=== PATIENT | male | born 1945 | race Caucasian/White ===

== ENCOUNTER 2025-01-12 10:04 | Outpatient (REF) | payer OTHER, SELFPAY ==
--- NOTE | ~2025-01-12 | XR_ITS ---
EXAMINATION: XR LUMBAR SPINE 4 OR MORE VIEWS HISTORY: M48.062 - Spinal stenosis, lumbar region with neurogenic claudication COMPARISON: There are no prior studies for comparison. FINDINGS: AP, and neutral, flexion, and extension lateral views of the lumbar spine are submitted. Osseous mineralization is normal. There is mild leftward curvature. The vertebral bodies maintain normal height without evidence of fracture. There is grade I spondylolisthesis of L3 on L4 measuring approximately 5-6 mm in the neutral, flexion, extension positions. There is no abnormal motion with flexion or extension. There is severe degenerative disc disease with disc space narrowing and osteophyte formation. There is osteoarthritis of the facet joints. There is calcification of the abdominal aorta. XR/XR lumbar spine 4V min IMPRESSION: Mild leftward curvature. Grade I spondylolisthesis of L3 on L4 without significant change with flexion or extension. Diffuse severe degenerative disc disease. Electronically signed by: Wan Gardner MD 01/15/2025 09:16 AM BALJEET
--- OUTSIDE RECORDS SUMMARY | 2025-01-12 12:17 | XMS_ITS | Clinical Summary ---
Author Organization [facility] Address [address] [place] [address] Care Team Providers Care Adhesive Bandage Making Operator Name Role Phone Unavailable Primary Care Provider [...] mg total) by mouth nightly. 08/10/2023 Active [place]-3 Fatty Acids (FISH OIL PO) Take 1 [...]
--- OUTSIDE RECORDS SUMMARY | 2025-01-12 12:17 | XMS_ITS | Encounter Summary ---
Author Organization [facility] Address [address] [place] [address] Care Team Providers Care Washing Machine Assembler Name Role Phone Unavailable Primary Care Provider Unavailabl e Encounter Details Date Type Department Care Team (Late st Contact Info) Description 11/29/2023 Scanned Document [facility] [address] [facility] [address] [place] [phone] Marisela Bautista, MARJORIE [address] [place] [id number] Social History Tobacco Use Types Packs/Day Years [...]
--- OUTSIDE RECORDS SUMMARY | 2025-01-12 12:18 | XMS_ITS | Clinical Summary ---
Author Organization [facility] [employer] Address [address] [place] [address] Phone Care Team Providers Care State Highway Police Officer Name Role Phone Cristo Spring MD Primary Care Provider [phone] Allergies No known active allergies Medications hydroCHLOROthiaz [...] at bedtime. 01/17/20 20 Active fish,bora,flax oils-om3,6,9no1 ([place] 3-6-9) 1,200 mg capsule Take 1,200 mg [...] Encounters Date Type Department Care Team Description 01/12/2025 Telephone [facility] Cardiology [facility] [address] [place] [address] Ari Patricio MD Medical Records 11/24/2024 8:50 AM EST Office Visit [facility] Cardiology [facility] [address] [facility] [address] [place] [address] Ari Patricio MD Coronary artery disease, unspecified vessel or lesion type, unspecified whether angina present, unspecified whether [place] or transplanted heart (Primary Dx); Palpitations from [...] type, unspecified whether angina present, unspecified whether [place] or transplanted heart from Last 3 Months Results * ECG 12 lead (11/24/2024 8:51 AM EST) Ventricular Rate ECG 70 BPM GEMUSE Atrial Rate 70 BPM GEMUSE P-R Interval 162 ms GEMUSE QRS Duration 78 ms GEMUSE Q-T Interval 380 ms GEMUSE QTc 410 ms GEMUSE P Wave [place] 45 degrees GEMUSE R [place] 31 degrees GEMUSE T [place] -6 degrees GEMUSE ECG Interpretation Sinus rhythm with Premature supraventricular complexes Inferior infarct , age undetermined Abnormal ECG No previous ECGs available Confirmed by Jacques PATRICIO JAMES ([id number]) on 11/24/2024 1:19:31 PM GEMUSE 11/24/2024 8:51 AM EST 11/24/2024 1:19 PM EST us Ari Patricio MD ECG ORDERABLES Final Result GEMUSE from Last 3 Months Insurance [employer] Care Teams State Highway Police Officer Relationship Specialty Start Date End Date Cristo Spring MD [address] PCP - General Disaster Or Damage Control Specialist 03/08/18
--- OUTSIDE RECORDS SUMMARY | 2025-01-12 12:18 | XMS_ITS | Clinical Summary ---
Author Organization [facility] Address [address] [facility] [address] [place] [address] Phone Care Team Providers Care Human Performance Technologist Name Role Phone Cristo Spring MD Primary Care Provider [phone] Allergies No known active allergies Medications Aspirin [...] [facility] [address] [phone] Alonso Vance MD from Last 3 Months [...] [facility] [address] [phone] Alonso Vance MD [address] [phone] Health Maintenance Due Date Last Done Comments [...] None seen 0 - 5 /hpf [facility] RBC, Urine 0-2 0 - 2 /hpf [facility] Squamous Epithelial, Urine None seen 0 - 10 /hpf [facility] Casts None seen None seen /lpf [facility] Bacteria, Urine None seen None seen/Few [facility] 01/11/2025 10:5 0 AM EST 01/11/2025 Alonso Vance MD LAB MICROBIOLOGY - GENERAL OR DERABLES Final Result Performing Organization Address [facility]/ZIP Co de Phone Number [facility] [address] [place] [address] * Vitamin D 25 Hydroxy (01/11/2025 10:50 AM EST) Vitamin D, 25-OH, Total 30.8 30.0 - 100.0 ng/mL [facility] Comment: Vitamin D deficiency has been defined by the [place] of Medicine and an Endocrine Society practice guideline as a level of serum 25-OH vitamin D less than 20 ng/mL (1,2). The Endocrine Society went on to further define vitamin D insufficiency as a level between 21 and 29 ng/mL (2). 1. IOM ([place] of Medicine). 2010. Dietary reference ?? intakes for calcium and D. [place]: The ?? National [employer] Press. 2. Stef MF, Valdo [place], Michelle UNDERWOOD, et al. ?? Evaluation, treatment, and prevention of vitamin D ?? deficiency: an Endocrine Society clinical practice ?? guideline. JCEM. 2010; 96(7):1911-30. 01/11/2025 10:5 0 AM EST 01/11/2025 Alonso Vance MD LAB BLOOD ORDERABLES Final Re sult Performing Organization Address [facility]/ZIP Co de Phone Number [facility] [address] [place] [address] * (ABNORMAL) Urinalysis with microscopic (01/11/2025 10:50 AM EST) Specific [place], Urine 1.021 1.005 - 1.030 [facility] pH Urine 6.5 5.0 - 7.5 [facility] Color, Urine Yellow Yellow [facility] [phone] Appearance Urine Clear Clear [facility] [phone] WBC Esterase Urine Negative Negative [facility] Protein, Ur 1+(A) Negative/Tra ce [facility] Glucose, Ur Negative Negative [facility] [phone] Ketones, Urine Negative Negative [facility] Blood Urine Negative Negative [facility] [phone] Bilirubin Urine Negative Negative [facility] Urobilinogen Urine 1.0 0.2 - 1.0 mg/dL [facility] Nitrite, Urine Negative Negative [facility] Microscopic Examination See below: [facility] Comment:Microscopic was donnie cated and was performed. 01/11/2025 10:5 0 AM EST 01/11/2025 us Alonso Vance MD LAB URINE ORDERABLES Final Re sult [facility] [address] [place] [address] * CBC and Differential (01/11/2025 10:50 AM EST) WBC 9.7 3.4 - 10.8 x10E3/uL [facility] RBC 5.08 4.14 - 5.80 x10E6/uL [facility] Hemoglobin 14.0 13.0 - 17.7 g/dL [facility] Hematocrit 42.5 37.5 - 51.0 % [facility] MCV 84 79 - 97 fL [facility] MCH 27.6 26.6 - 33.0 pg [facility] MCHC 32.9 31.5 - 35.7 g/dL [facility] RDW 13.6 11.6 - 15.4 % [facility] Platelets 210 150 - 450 x10E3/uL [facility] Neutrophils Relative 65 Not Estab. % [facility] Lymphocytes Relative 24 Not Estab. % [facility] Monocytes 8 Not Estab. % [facility] Eosinophils Relative 2 Not Estab. % [facility] Basophils Relative 0 Not Estab. % [facility] Neutrophils Absolute 6.4 1.4 - 7.0 x10E3/uL [facility] Lymphocytes Absolute 2.3 0.7 - 3.1 x10E3/uL [facility] Monocytes Absolute 0.8 0.1 - 0.9 x10E3/uL [facility] Eosinophils Absolute 0.2 0.0 - 0.4 x10E3/uL [facility] Basophils Absolute 0.0 0.0 - 0.2 x10E3/uL [facility] Immature Granulocytes 1 Not Estab. % [facility] Immature Grans (Absolute) 0.1 0.0 - 0.1 x10E3/uL [facility] 01/11/2025 10:5 0 AM EST 01/11/2025 us Alonso Vance MD LAB BLOOD ORDERABLES Final Re sult [facility] [address] [place] [address] * Uric Acid (01/11/2025 10:50 AM EST) Uric Acid 7.9 3.8 - 8.4 mg/dL [facility] Comment:Therapeutic target f or gout patients: <6.0 01/11/2025 10:5 0 AM EST 01/11/2025 us Alonso Vance MD LAB BLOOD ORDERABLES Final Re sult [facility] [address] [place] [address] * Phosphorus (01/11/2025 10:50 AM EST) Phosphorus 2.8 2.8 - 4.1 mg/dL [facility] 01/11/2025 10:5 0 AM EST 01/11/2025 Alonso Vance MD LAB BLOOD ORDERABLES Final Re sult Performing Organization Address [facility] Co de Phone Number [facility] [address] [place] [address] * (ABNORMAL) PTH, Intact (01/11/2025 10:50 AM EST) PTH 69(H) 15 - 65 pg/mL [facility] 01/11/2025 10:5 0 AM EST 01/11/2025 Alonso Vance MD LAB BLOOD ORDERABLES Final Re sult Performing Organization Address [facility] Co de Phone Number [facility] [address] [place] [address] * Magnesium (01/11/2025 10:50 AM EST) Magnesium 1.8 1.6 - 2.3 mg/dL [facility] 01/11/2025 10:5 0 AM EST 01/11/2025 us Alonso Vance MD LAB BLOOD ORDERABLES Final Re sult [facility] [address] [place] [address] * (ABNORMAL) Comprehensive Metabolic Panel (01/11/2025 10:50 AM EST) Glucose 130(H) 70 - 99 mg/dL [facility] BUN 24 8 - 27 mg/dL [facility] Creatinine 1.30(H) 0.76 - 1.27 mg/dL [facility] eGFR CKD-EPI CR 2020 56(L) >59 mL/min/1.7 3 [facility] BUN/Creatinine Ratio 18 10 - 24 [facility] Sodium 146(H) 134 - 144 mmol/L [facility] Potassium 4.4 3.5 - 5.2 mmol/L [facility] Chloride 106 96 - 106 mmol/L [facility] Bicarbonate (CO2) 23 20 - 29 mmol/L [facility] Calcium 9.9 8.6 - 10.2 mg/dL [facility] Total Protein 6.8 6.0 - 8.5 g/dL [facility] Albumin 4.2 3.8 - 4.8 g/dL [facility] Globulin 2.6 1.5 - 4.5 g/dL [facility] Total Bilirubin 0.5 0.0 - 1.2 mg/dL [facility] Alkaline Phosphatase 96 44 - 121 IU/L [facility] AST (SGOT) 21 0 - 40 IU/L [facility] ALT (SGPT) 21 0 - 44 IU/L [facility] 01/11/2025 10:5 0 AM EST 01/11/2025 us Alonso Vance MD LAB BLOOD ORDERABLES Final Re sult [facility] [address] [place] [address] from Last 3 Months [facility][id number]) [facility]NA [facility] AD[facility] PPO ([id number]) Care Teams Human Performance Technologist Relationship Specialty Start Date End Date Cristo Spring MD [address] [place] [address] PCP - General Internal Medicine 09/14/22
--- OUTSIDE RECORDS SUMMARY | 2025-01-12 12:18 | XMS_ITS | Clinical Summary ---
Author Organization [facility] Address [address] [place] [address] Care Team Providers Care Switchboard Wirer Name Role Phone Cristo Spring MD Primary Care Provider [phone] Allergies No known active allergies Medications Medication [...] every night at bedtime. 5 07/20/2018 Active [place]-3 Fatty Acids (FISH OIL PO) Take 1 [...] Advance Directives For more information, please contact: [phone] Latest Code Status on File Code Status Date Activated Date Inactivated Comments Full Code 08/16/2018 11:55 AM 08/16/2018 6:37 PM This code status was ascertained in the following way: discussion with patient. Care Teams Switchboard Wirer Relationship Specialty Start Date End Date Cristo Spring MD [address] [address] PCP - General Hand Mounter 03/08/18
--- OUTSIDE RECORDS SUMMARY | 2025-01-12 12:18 | XMS_ITS | Encounter Summary ---
Author Organization [facility] Address [address] [place] [address] Care Team Providers Care Biometric Screener Name Role Phone Cristo Spring MD Primary Care Provider [phone] Reason for Visit * Reason Onset Date Comments Medical Records 01/12/2025 Encounter Details Date Type Department Care Team (Late st Contact Info) Description 01/12/2025 Telephone [facility] Cardiology [facility] [address] [place] [address] [address] [place] [address] Ari Patricio MD [address] [place] [address] [address] [place] [address] Medical Records Social History Tobacco Use Types Packs/Day Years [...] on file documented as of this encounter Progress Notes * Shanta Sandoval - 01/12/2025 11:21 AM EST Medical Records Request Caller: [facility] Calling from: [facility] Requesting provider's first & last name: Direct Phone Number or Ext: [phone] What records are being requested: Office visit notes with Dr. Patricio, for clearance How far back: 11/24/24 What is it for: Lumbar Decompression Needed by: ADRIEN documented in this encounter Plan of Treatment Not on file documented as of this encounter Visit Diagnoses Not on filedocumented in this encounter Care Teams Biometric Screener Relationship Specialty Start Date End Date Cristo Spring MD [address] PCP - General Exploration Geologist 03/08/18 documented as of this encounter
--- OUTSIDE RECORDS SUMMARY | 2025-01-12 12:18 | XMS_ITS | Encounter Summary ---
Author Organization [facility] Address [address] [address] Phone Care Team Providers Care Glass Melt Operator Name Role Phone Cristo Spring MD Primary Care Provider [phone] Encounter Details Date Type Department Care Team (Late Contact Info) Description 01/11/2025 Orders Only [facility] [address] [place] [phone] Alonso Vance MD [facility] [address] Social History Tobacco Use Types [...] Office Visit [facility] [address] [address] Alonso Vance MD [address] [address] Pending Results Name Type Priority [...] EST) PTH 69(H) 15 - 65 pg/mL [facility] 01/11/2025 10:5 0 AM EST 01/11/2025 us Alonso Vance MD LAB BLOOD ORDERABLES Final Re sult [facility] [address] [place] [address] * Magnesium (01/11/2025 10:50 AM EST) Magnesium 1.8 1.6 - 2.3 mg/dL [facility] 01/11/2025 10:5 0 AM EST 01/11/2025 Alonso Vance MD LAB BLOOD ORDERABLES Final Re sult Performing Organization Address City/[facility]/ZIP Co de Phone Number [facility] [place] [address] [place] [address] * Phosphorus (01/11/2025 10:50 AM EST) Phosphorus 2.8 2.8 - 4.1 mg/dL [facility] 01/11/2025 10:5 0 AM EST 01/11/2025 Alonso Vnace MD LAB BLOOD ORDERABLES Final Re sult Performing Organization Address [facility] Co de Phone Number [facility] [address] [place] [address] * Uric Acid (01/11/2025 10:50 AM EST) Uric Acid 7.9 3.8 - 8.4 mg/dL [facility] Comment:Therapeutic target f or gout patients: <6.0 01/11/2025 10:5 0 AM EST 01/11/2025 Alonso Vance MD LAB BLOOD ORDERABLES Final Re sult Performing Organization Address City/[facility]/ZIP Co de Phone Number [facility] [place] [address] [place] [address] * Vitamin D 25 Hydroxy (01/11/2025 10:50 AM EST) Vitamin D, 25-OH, Total 30.8 30.0 - 100.0 ng/mL [facility] [place] Comment: Vitamin D deficiency has been defined by the [place] of Medicine and an Endocrine Society practice guideline as a level of serum 25-OH vitamin D less than 20 ng/mL (1,2). The Endocrine Society went on to further define vitamin D insufficiency as a level between 21 and 29 ng/mL (2). 1. IOM ([place] of Medicine). 2010. Dietary reference ?? intakes for calcium and D. [place]: The ?? [employer]. 2. Stef MF, Valdo CAZARES, Michelle UNDERWOOD, et al. ?? Evaluation, treatment, and prevention of vitamin D ?? deficiency: an Endocrine Society clinical practice ?? guideline. JCEM. 2010; 96(7):1911-30. 01/11/2025 10:5 0 AM EST 01/11/2025 Alonso Vance MD LAB BLOOD ORDERABLES Final Re sult Performing Organization Address City/[facility]/ZIP Co de Phone Number [facility] [place] [address] [place] [address] * Microscopic Examination (01/11/2025 10:50 AM EST) WBC, Urine None seen 0 - 5 /hpf [facility] [place] RBC, Urine 0-2 0 - 2 /hpf [facility] [place] Squamous Epithelial, Urine None seen 0 - 10 /hpf [facility] [place] Casts None seen None seen /lpf [facility] [place] Bacteria, Urine None seen None seen/Few [facility] [place] 01/11/2025 10:5 0 AM EST 01/11/2025 Alonso Vance MD LAB MICROBIOLOGY - GENERAL OR DERABLES Final Result Performing Organization Address City/[facility]/ZIP Co de Phone Number [facility] [place] [address] [place] [address] * (ABNORMAL) Urinalysis with microscopic (01/11/2025 10:50 AM EST) Specific [place], Urine 1.021 1.005 - 1.030 [facility] [place] pH Urine 6.5 5.0 - 7.5 [facility] [place] Color, Urine Yellow Yellow [facility] [place] Appearance Urine Clear Clear [facility] [place] WBC Esterase Urine Negative Negative [facility] [place] Protein, Ur 1+(A) Negative/Tra ce [facility] [place] Glucose, Ur Negative Negative [facility] [place] Ketones, Urine Negative Negative [facility] [place] Blood Urine Negative Negative [facility] [place] Bilirubin Urine Negative Negative [facility] [place] Urobilinogen Urine 1.0 0.2 - 1.0 mg/dL [facility] [place] Nitrite, Urine Negative Negative [facility] [place] [phone] Microscopic Examination See below: [facility] [place] Comment:Microscopic was donnie cated and was performed. 01/11/2025 10:5 0 AM EST 01/11/2025 us Alonso Vance MD LAB URINE ORDERABLES Final Re sult [facility] [place] [address] [place] [address] * (ABNORMAL) Comprehensive Metabolic Panel (01/11/2025 10:50 AM EST) Pathologist [facility] Glucose 130(H) 70 - 99 mg/dL [facility] [place] BUN 24 8 - 27 mg/dL [facility] Creatinine 1.30(H) 0.76 - 1.27 mg/dL [facility] [place] eGFR CKD-EPI CR 2020 56(L) >59 mL/min/1.7 3 [facility] [place] BUN/Creatinine Ratio 18 10 - 24 [facility] [place] Sodium 146(H) 134 - 144 mmol/L [facility] Potassium 4.4 3.5 - 5.2 mmol/L [facility] Chloride 106 96 - 106 mmol/L [facility] [place] Bicarbonate (CO2) 23 20 - 29 mmol/L [facility] Calcium 9.9 8.6 - 10.2 mg/dL [facility] [place] Total Protein 6.8 6.0 - 8.5 g/dL [facility] [place] Albumin 4.2 3.8 - 4.8 g/dL [facility] [place] Globulin 2.6 1.5 - 4.5 g/dL [facility] Total Bilirubin 0.5 0.0 - 1.2 mg/dL [facility] [place] Alkaline Phosphatase 96 44 - 121 IU/L [facility] [place] AST (SGOT) 21 0 - 40 IU/L [facility] ALT (SGPT) 21 0 - 44 IU/L [facility] [place] 01/11/2025 10:5 0 AM EST 01/11/2025 us Alonso Vance MD LAB BLOOD ORDERABLES Final Re sult [facility] [place] [address] [place] [address] * CBC and Differential (01/11/2025 10:50 AM EST) WBC 9.7 3.4 - 10.8 x10E3/uL [facility] [place] RBC 5.08 4.14 - 5.80 x10E6/uL [facility] [place] Hemoglobin 14.0 13.0 - 17.7 g/dL [facility] [place] Hematocrit 42.5 37.5 - 51.0 % [facility] MCV 84 79 - 97 fL [facility] MCH 27.6 26.6 - 33.0 pg [facility] MCHC 32.9 31.5 - 35.7 g/dL [facility] RDW 13.6 11.6 - 15.4 % [facility] Platelets 210 150 - 450 x10E3/uL [facility] Neutrophils Relative 65 Not Estab. % [facility] Lymphocytes Relative 24 Not Estab. % [facility] Monocytes 8 Not Estab. % [facility] Eosinophils Relative 2 Not Estab. % [facility] Basophils Relative 0 Not Estab. % [facility] Neutrophils Absolute 6.4 1.4 - 7.0 x10E3/uL [facility] [place] Lymphocytes Absolute 2.3 0.7 - 3.1 x10E3/uL [facility] [place] Monocytes Absolute 0.8 0.1 - 0.9 x10E3/uL [facility] [place] Eosinophils Absolute 0.2 0.0 - 0.4 x10E3/uL [facility] [place] Basophils Absolute 0.0 0.0 - 0.2 x10E3/uL [facility] [place] Immature Granulocytes 1 Not Estab. % [facility] Immature Grans (Absolute) 0.1 0.0 - 0.1 x10E3/uL [facility] 01/11/2025 10:5 0 AM EST 01/11/2025 us Alonso Vance MD LAB BLOOD ORDERABLES Final Re sult [facility] [address] [place] [phone] documented in this encounter Visit Diagnoses Not on filedocumented in this encounter Care Teams Glass Melt Operator Relationship Specialty Start Date End Date Cristo Spring MD [address] [place] [address] PCP - General Internal Medicine 09/14/22 documented as of this encounter
== END 2025-01-12 10:05 | disposition home or self-care (01) ==
LOC: HO.HOSX 10:04
PROVIDERS: PCP Internal Medicine; Visit Provider Neurological Surgery
DX: M48.062 Spinal stenosis, lumbar region with neurogenic claudication (principal)
CPT/HCPCS: 72110

== ENCOUNTER 2025-01-12 10:04 | Outpatient (AMB) | payer OTHER, SELFPAY ==
--- NOTE | 2025-01-12 10:08 | HO.SPINEOV ---
Vital Signs 01/12/25 10:14 Height 5 ft 7 in Weight 230 lb BMI 36.0 Intake Visit Reasons: LBP Intake Note: Mr. Vela is here today c/o low back pain that radiates down to the legs. Community Development Specialist Required: No Allergies No Known Allergies Allergy (Verified 01/12/25 10:15) Physical Exam Vital Signs: BMI result Body Mass Index 36.0 Assessment & Plan Assessment & Plan (1) Lumbar stenosis with neurogenic claudication: Code(s): M48.062 - Spinal stenosis, lumbar region with neurogenic claudication Category: Medical Plan: Dear Colleague on 01/12/2025, I saw for 2nd opinion your patient Leroy Vela with a chief complaint of bilateral leg discomfort and weakness HPI: this 79-year-old male developed difficulty walking and standing approximately 2 years ago. The symptoms have been progressive. Specifically, 2 years ago he was still able to walk [place] with intermittent sitting but last year he could not go as he can hardly stand or walk due to bilateral leg discomfort, Weakness and right foot numbness. He was seen at [facility] by Dr. Morocho recommended a 5 hour lumbar fusionsurgery. he came to see me for 2nd opinion to see if there is a minimally invasive solution. The following conservative treatment options were tried without success antiinflammatories, tylenol, Physical therapy, cortisone shots. PMH: [ Hypertension, mi 20 and 30 years ago. He has annual follow-ups with the solar pool heating installer. The last follow-up was 2 weeks ago. He denies shortness of breath or chest pain. Medications: Atorvastatin, amlodipine, lisinopril, metoprolol, zolpidem, aspirin Allergies: NKDA Social history: . Nonsmoker Physical Exam: pleasant male height 5'7 weight 230 lb. He can only stand or walk for short period in the office before he has to sit down due to bilateral leg discomfort and right foot numbness. After period of sitting, his neurological exam is intact for motor sensation reflexes. Radiological Studies: MRI done at [facility] on 09/08/2024 shows severe central spinal stenosis L3-4 and severe lateral recess stenosis L4-L5 with bilateral L5 nerve root compression. In addition there is multilevel foraminal stenosis. There is also a disc herniation at L2-3 on the right side compressing the right L3 nerve root. Flexion-extension x-ray show a mild L3-4 spondylolisthesis without instability. Impression/Plan: This 79-year-old male is suffering from classic neurogenic claudication due to severe spinal stenosis L3-4 and L4-5. I do not think that the L2-3 level symptomatic. I offered him an L3-4 and L4-5 lumbar decompression. He is aware that there is a minor risk that the spondylolisthesis will turn into instability. For now, I do not recommend a fusion surgery. He is scheduled for 02/06/2025. He is going to get preoperative clearance from his primary care physician. As mentioned before, he was recently seen by solar pool heating installer and his cardiology history has been stable for years. Thank you for allowing me to participate in your patients care. total time spent was 50 minutes in counseling ,coordination of plan, personal review of imaging, surgical decision making and subsequent plan Mason Young MD, PhD Spine Fellowship Trained Neurosurgeon Director, [facility] Orders: Orders XR lumbar spine 4V min Today M48.062 - Spinal stenosis, lumbar region with neurogenic claudication Coding Level of Care Code New Pt Level 4 (24471) Diagnoses Lumbar stenosis with neurogenic claudication M48.062
[2025-01-12 10:14] VITALS: BMI 36.0
--- OUTSIDE RECORDS SUMMARY | 2025-01-12 11:10 | XMS_ITS | Clinical Summary ---
Author Organization [facility] Address [address] [place] [address] Phone Care Team Providers Care Longwall Foreman Name Role Phone Cristo Spring MD Primary Care Provider [phone] Allergies No known active allergies Medications hydroCHLOROthiaz madisyn (HYDRODIURIL) 25 mg tablet Take 1 tablet (25 mg total) by mouth 1 (one) time each day. 90 tablet 1 09/24/20 24 Active lisinopril (PRINIVIL,ZESTRI L) 40 mg tablet Take 1 tablet (40 mg total) by mouth 1 (one) time each day. 90 tablet 1 09/24/20 24 Active aspirin (ASPIR-81 ORAL) Take 81 mg by mouth daily. 08/12/20 14 Active atorvastatin (LIPITOR) 80 mg tablet TAKE 1 TABLET BY MOUTH EVERY DAY 08/24/20 24 Active colchicine (MITIGARE) 0.6 mg capsule capsule Take by mouth as needed. Active esomeprazole (NexIUM) 40 mg packet Take 40 mg by mouth every morning (before breakfast). Active metoprolol succinate (TOPROL-XL) 25 mg 24 hr tablet Take 1 Tablet by mouth daily. Active zolpidem (AMBIEN) 10 mg tablet Take 1 Tablet by mouth at bedtime. 01/17/20 20 Active fish,bora,flax oils-om3,6,9no1 ([place] 3-6-9) 1,200 mg capsule Take 1,200 mg by mouth daily. 03/18/20 12 Active amLODIPine (NORVASC) 5 mg tabletIndication s:Essential (primary) hypertension TAKE 1 TABLET BY MOUTH EVERY DAY 90 tablet 3 01/05/20 25 Active amLODIPine (NORVASC) 5 mg tablet Take 1 Tablet by mouth daily. 08/21/20 24 025 Discontinued Active Problems Problem Noted Date Diagnosed Date Palpitations 09/04/2022 Overview (10/06/2024): Last Assessment & Plan: Patient complains of an arrhythmia of some sort uncertain as to what it is his watch does not really pick it up undistorted information so we will schedule him for a loop recorder to see if he can determine what his arrhythmias Assessment & Plan (11/24/2024 1:21 PM EST): Patient still with occasional peers of palpitations history of PACs and PVCs in the past on loop recorder no complex ectopy Coronary artery disease 01/29/2021 Overview (10/06/2024): Last Assessment & Plan: Patient with remote history of episodic coronary disease with mild residual disease. No anginal symptoms at this time. There are statin medication in place though his LDL cholesterol is climbed little bit we have encouraged him to watch his diet no changes in medical medical therapy at this time. Patient is been instructed to contact us if he develops any exertional symptoms of progressive dyspnea or chest discomfort or if the palpitations become more of an issue in the future. Otherwise no changes to therapy follow-up in 1 year Assessment & Plan (11/24/2024 1:21 PM EST): Remote history of coronary disease with mild residual atheroma. Risk factor modifications in place. Patient advised to seek emergency medical attention by calling 911 if they were to develop severe dyspnea, chest pain that did not resolve with rest or nitroglycerin, or if they were to faint Orders: ECG 12 lead Hyperlipidemia 01/29/2021 Hypertension 01/29/2021 Overview (10/06/2024): Last Assessment & Plan: Patient's blood pressure has been an issue in the past is fairly well controlled at this point. His primary care physician is been adjusting the dose of amlodipine downward will need to carefully monitor this. We try to correlate his home blood pressure cuff after I twice my numbers are both lower than the numbers he is getting with his cough he may need to replace the device due to inaccuracy otherwise no change in therapy at this time Encounters Date Type Department Care Team Description 11/24/2024 8:50 AM EST Office Visit [facility] [address] [facility] [address] [place] [address] Liza Patricio MD Coronary artery disease, unspecified vessel or lesion type, unspecified whether angina present, unspecified whether [place] or transplanted heart (Primary Dx); Palpitations from Last 3 Months Social History Tobacco Use Types Packs/Day Years Used Date Smoking Tobacco: Former Cigarettes Q uit: 11/15/1972 Smokeless Tobacco: Never Alcohol Use Standard Drinks/Week Comments No 0 (1 standard drink = 0.6 oz pur e alcohol) Sex and Gender Information Value Date Recorded Sex Assigned at Not on file Legal Sex Male 2:20 AM EST Gender Identity Not on file Sexual Orientation Not on file Obstetrics History Last Filed Vital Signs Vital Sign Reading Time Taken Comments Blood Pressure 122/64 11/24/2024 9:21 AM EST Pulse 79 11/24/2024 8:44 AM EST Temperature - - Respiratory Rate - - Oxygen Saturation 93% 11/24/2024 8:44 AM EST Inhaled Oxygen Concentration - - Weight 103 kg (228 lb) 11/24/2024 8:44 AM EST Height 170.2 cm (5' 7 ) 11/24/2024 8:44 AM EST Body Mass Index 35.71 11/24/2024 8:44 AM EST Plan of Treatment Health Maintenance Due Date Last Done Comments Diabetes: Annual GFR (Glomerular Filtration Rate) 1945 Diabetes: Annual Foot Exam 1955 Diabetes: Annual Retina Eye Exam 1955 Pneumococcal Vaccine: 50+ Years (2 of 2 - PCV) 12/22/2014 12/22/2013 RSV Immunization Patients 60+ Years Old (1 - 1-dose 75+ series) 2020 Cholesterol Screening (Lipid Panel) 10/18/2022 Depression Screening 10/18/2022 Falls Risk Assessment 10/18/2022 Hepatitis C Screening 10/18/2022 Medicare Annual Wellness Visit 10/18/2022 Social Influencers of Health Screening 10/18/2022 Hypertension/CHF/CAD Annual BMP Blood Test 10/25/2022 COVID-19 Vaccine ( season) 2024 08/18/2023, 09/01/2022, 02/26/2022, Additional history exists Diabetes: Annual Urine Albumin-Creatinine Ratio (uACR) 11/24/2024 Diabetes: Blood Sugar Control Test (HGBA1C) 11/24/2024 DTaP,Tdap,and Td Vaccines (2 - Td or Tdap) 09/27/2034 09/27/2024 Zoster Vaccines Completed 11/27/2019, 09/04/2019 Influenza Vaccine Completed 09/27/2024, , 07/26/2020, Additional history exists HIB Vaccines Aged Out No longer eligi ble based on patient's age to complete this topic HPV Vaccines Aged Out No longer eligi ble based on patient's age to complete this topic Hepatitis A Vaccines Aged Out No long er eligible based on patient's age to complete this topic Hepatitis B Vaccines Aged Out No long er eligible based on patient's age to complete this topic IPV Vaccines Aged Out No longer eligi ble based on patient's age to complete this topic MMR Vaccines Aged Out No longer eligi ble based on patient's age to complete this topic Meningococcal ACWY Vaccine Aged Out N o longer eligible based on patient's age to complete this topic Meningococcal B Vacine Aged Out No lo nger eligible based on patient's age to complete this topic RSV Immunization Patients Under 20 months Aged Out No longer eligible based on patient's age to complete this topic Varicella Vaccines Aged Out No longer eligible based on patient's age to complete this topic Procedures Procedure Name Priority Date/Time Associated Diagnosis Comments ECG 12-LEAD Routine 11/24/2024 8:51 AM EST Coronary artery disease, unspecified vessel or lesion type, unspecified whether angina present, unspecified whether k[place] or transplanted heart from Last 3 Months Results * ECG 12 lead (11/24/2024 8:51 AM EST) Ventricular Rate ECG 70 BPM GEMUSE Atrial Rate 70 BPM GEMUSE P-R Interval 162 ms GEMUSE QRS Duration 78 ms GEMUSE Q-T Interval 380 ms GEMUSE QTc 410 ms GEMUSE P Wave [place] 45 degrees GEMUSE R [place] 31 degrees GEMUSE T [place] -6 degrees GEMUSE ECG Interpretation Sinus rhythm with Premature supraventricular complexes Inferior infarct , age undetermined Abnormal ECG No previous ECGs available Confirmed by Jacques PATRICIO, LIZA ([id number]) on 11/24/2024 1:19:31 PM GEMUSE 11/24/2024 8:51 AM EST 11/24/2024 1:19 PM EST us Liza Patricio MD ECG ORDERABLES Final Result GEMUSE from Last 3 Months Insurance [employer] MEDICARE ADVANTAGE Care Teams Longwall Foreman Relationship Specialty Start Date End Date Cristo Spring MD [address] PCP - General Nurse Executive 03/08/18
--- OUTSIDE RECORDS SUMMARY | 2025-01-12 11:10 | XMS_ITS | Patient Health Record ---
Author Organization [facility] Address [address] [place] [address] Care Team Providers Care Snow Ranger Name Role Phone Budindira Cristo Primary Care Provider Unavailabl e Allergies No Known Allergies Reason For Referral No Information Medications Medication SIG (Take, Route, Frequency, Duration) Notes Start Date End Date Status Colchicine 0.6 MG 1 tablet Orally Active Esomeprazole Magnesium 40 MG 1 capsule O rally Once a day Active hydroCHLOROthiazide 25 MG 1 tablet in th e morning Orally Once a day Active Lisinopril 40 MG 1 tablet Orally Once a day Active Metoprolol Succinate ER 100 MG 1 tablet Orally Once a day Active Paxlovid (150/100) 10 x 150 MG & 10 x 100MG as directed Orally Not-[facility] traMADol HCl 50 MG 1 tablet as needed Orally Once a day Active Zolpidem Tartrate 5 MG 1 tablet at bedti ar as needed Orally Once a day Active amLODIPine Besylate 2.5 MG 1 tablet Oral ly Once a day Active Aspirin 81 81 MG 1 tablet Orally Once a day Active Atorvastatin Calcium 80 MG 1 tablet Oral ly Once a day Active Cialis 20 MG 1 tablet as needed Orally Once a day Active Plan Of Treatment No Information Insurance Providers Payer Name Payer Address Payer Phone Subscriber Number Group Number Insured Name Patient Relationship to Insured Coverage Start Date Coverage End Date [employer] Medicare [address] [place] [phone] [id number] Leroy Badillo i Self - patient is the insured Medical (General) History Medical History History ICD Code Atherosclerosis of Abdominal Aorta Benign Hypertension w/ CKD Stage 3 CAD S/P Percutaneous Coronary Angioplast y Cervicalgia Esophageal Reflux Hyperglycemia Hyperlipidemia Hyperparathyroidism Hypertension Impotence Insomnia Morbid Obesity Renal Cysts, Bilateral Lumbar central canal stenosi s L3-L4, L4, L5 with large disc herniation L2-L3 right + COVID 2021 and 2022 COVID vaccinated X 3 (enGreet) Surgical History Surgery Date(Month/Year) right ankle ORIF Hospitalization History Reason Date(Month/Year) right ankle surgery
--- OUTSIDE RECORDS SUMMARY | 2025-01-12 11:10 | XMS_ITS | Clinical Summary ---
Author Organization [facility] Address [address] [place] [address] Care Team Providers Care Topographical Drafter Name Role Phone Unavailable Primary Care Provider Unavailabl e Allergies No known active allergies Medications Medication Sig Dispensed Refills Start Date End Date Status amLODIPine (NORVASC) 2.5 MG tablet Take 1 tablet (2.5 mg total) by mouth every morning. Active Aspirin Low Dose 81 MG EC tablet Take 1 tablet (81 mg total) by mouth every morning. 06/26/2023 Active atorvastatin (LIPITOR) 80 MG tablet Take 1 tablet (80 mg total) by mouth every morning. 06/08/2023 Active COLCHICINE PO Take 0.6 mg by mouth daily as needed. 05/12/2023 Active esomeprazole (NexIUM) 40 MG capsule Take 1 capsule (40 mg total) by mouth daily as needed. 06/04/2023 Active hydroCHLOROthiazid e (HYDRODIURIL) 25 MG tablet Take 1 tablet (25 mg total) by mouth every morning. 06/08/2023 Active lisinopril (PRINIVIL,ZeSTRIL) 40 MG tablet Take 1 tablet (40 mg total) by mouth every morning. 06/26/2023 Active zolpidem (AMBIEN) 5 MG tablet Take 1 tablet (5 mg total) by mouth nightly. 08/10/2023 Active [place]-3 Fatty Acids (FISH OIL PO) Take 1 tablet by mouth daily as needed. Active polyethylene glycol-electrolyte s (NuLYTELY, TRILYTE) 420 g solutionIndication s:History of colon polyps Take as directed for Colonoscopy/GI Procedure. See administration instructions. 4000 mL 08/24/2023 Active metoPROLOL SUCCINATE (TOPROL-XL) 25 MG 24 hr tablet Take 1 tablet (25 mg total) by mouth every morning. Active Active Problems No known active problems Social History Tobacco Use Types Packs/Day Years Used Date Smoking Tobacco: Former Cigarettes Q uit: 1973 Smokeless Tobacco: Never Tobacco Cessation:Counseling Given: Not Answered Alcohol Use Standard Drinks/Week Comments Not Currently 0 (1 standard drink = 0.6 oz pur e alcohol) AUDIT-C Answer Date Recorded Q1: How often do you have a drink containing alcohol? Never 10/25/2023 Q2: How many drinks containi ng alcohol do you have on a typical day when you are drinking? Patient does not drink Q3: How often do you have si x or more drinks on one occasion? Never 10/25/2023 Sex and Gender Information Value Date Recorded Sex Assigned at Male 07/20/2023 11:32 AM EDT Gender Identity Male 07/20/2023 11:32 AM EDT Sexual Orientation Heterosexual (straight) 07/20 11:32 AM EDT Last Filed Vital Signs Vital Sign Reading Time Taken Comments Blood Pressure 126/61 10/26/2023 4:10 PM EST Pulse 64 10/26/2023 4:10 PM EST Temperature 36.6 ??C (97.8 ??F) 10/26/2023 1:58 PM ES T Respiratory Rate 20 10/26/2023 1:58 PM EST Oxygen Saturation 92% 10/26/2023 4:10 PM EST Inhaled Oxygen Concentration - - Weight 106 kg (234 lb) 10/25/2023 9:27 AM EST Height 170.2 cm (5' 7 ) 10/25/2023 9:27 AM EST Body Mass Index 36.65 10/25/2023 9:27 AM EST Plan of Treatment Health Maintenance Due Date Last Done Comments Hepatitis C Virus Screening 1945 DTaP/Tdap/Td Vaccines (1 - Tdap) 1964 Pneumococcal Vaccines 50+ (1 of 1 - PCV) 1995 Zoster (Shingles) Vaccine (1 of 2) 1995 RSV Vaccine 60 years and old er and Patients (1 - 1-dose 75+ series) 2020 Influenza Vaccine 06/15/2024 COVID-19 Vaccine ( - 2023-2 5 season) 2024 Hepatitis B Vaccines Aged Out No long er eligible based on patient's age to complete this topic
--- OUTSIDE RECORDS SUMMARY | 2025-01-12 11:10 | XMS_ITS | Clinical Summary ---
Author Organization [facility] Address [address] [place] [address] Care Team Providers Care Banker Mason Name Role Phone Cristo Spring MD Primary Care Provider [phone] Allergies No known active allergies Medications Medication Sig Dispensed Refills Start Date End Date Status aspirin 81 MG tablet TAKE 1 TABLET EVERY DAY 2 07/06/2018 Active atorvastatin (LIPITOR) tablet 80 mg Take 80 mg by mouth daily. 2 06/06/2018 Active colchicine 0.6 MG tablet TAKE 1 TABLET (0.6 MG) BY ORAL ROUTE 2 TIMES PER DAY NEEDED 10 07/20/2018 Active hydroCHLOROthiazide (HYDRODIURIL) tablet 25 mg Take 25 mg by mouth daily. 3 06/04/2018 Active lisinopril (PRINIVIL,ZESTRIL) tablet 40 mg Take 40 mg by mouth daily. 2 05/18/2018 Active metoprolol succinate (TOPROL-XL) 24 hr tablet 25 mg TAKE 1 TABLET BY ORAL ROUTE EVERY DAY 1 08/09/2018 Active mupirocin (BACTROBAN) 2 % ointment 2 (two) times a day. 2 05/11/2018 Active zolpidem (AMBIEN) 10 MG tablet 5 mg every night at bedtime. 5 07/20/2018 Active [place]-3 Fatty Acids (FISH OIL PO) Take 1 capsule by mouth daily. 0 Active Multiple Vitamin (ONE-A-DAY 55 PLUS PO) Take 1 tablet by mouth daily. 0 Active Active Problems No known active problems Family History Medical History Relation Name Comments Heart attack Father Heart disease Father Relation Name Status Comments Father Social History Tobacco Use Types Packs/Day Years Used Date Smoking Tobacco: Former Smokeless Tobacco: Never Alcohol Use Standard Drinks/Week Comments No 0 (1 standard drink = 0.6 oz pur e alcohol) Sex and Gender Information Value Date Recorded Sex Assigned at Not on file Gender Identity Not on file Sexual Orientation Not on file Last Filed Vital Signs Vital Sign Reading Time Taken Comments Blood Pressure 136/83 08/16/2018 12:19 PM EDT Pulse 82 08/16/2018 12:19 PM EDT Temperature 36.4 ??C (97.5 ??F) 08/16/2018 11:59 AM E DT Respiratory Rate 18 08/16/2018 12:19 PM EDT Oxygen Saturation 96% 08/16/2018 12:19 PM EDT Inhaled Oxygen Concentration - - Weight 106.1 kg (234 lb) 08/16/2018 9:36 AM EDT Height 170.2 cm (5' 7 ) 08/16/2018 9:36 AM EDT Body Mass Index 36.65 08/16/2018 9:36 AM EDT Plan of Treatment Health Maintenance Due Date Last Done Comments Hepatitis C Screening 1945 COVID-19 Vaccine (#1) 04/20/1946 Depression Screening 1957 Preventative Health Evaluation 1963 DTap / Tdap / Td (1 - Tdap) 1964 Shingrix-Zoster Vaccine (1 of 2) 1995 Fall Risk Assessment 2010 Pneumococcal Vaccine (1 of 1 - PCV) 2010 RSV Adult > 60+ Yrs or Pregn ant (1 - 1-dose 75+ series) 2020 Influenza Vaccine (#1) 2024 Hepatitis B Vaccines Aged Out No long er eligible based on patient's age to complete this topic RSV Ped < 20 months Aged Out No longe r eligible based on patient's age to complete this topic Advance Directives For more information, please contact: [phone] Latest Code Status on File Code Status Date Activated Date Inactivated Comments Full Code 08/16/2018 11:55 AM 08/16/2018 6:37 PM This code status was ascertained in the following way: discussion with patient. Care Teams Banker Mason Relationship Specialty Start Date End Date Cristo Spring MD [address] [address] PCP - General Sander And Polisher 03/08/18
--- OUTSIDE RECORDS SUMMARY | 2025-01-12 11:10 | XMS_ITS | Encounter Summary ---
Author Organization [facility] Address [address] [place] [address] Care Team Providers Care Audience Coordinator Name Role Phone Unavailable Primary Care Provider Unavailabl e Encounter Details Date Type Department Care Team (Late st Contact Info) Description 11/29/2023 Scanned Document [facility] [address] [place] [id number] Marisela Bautista, MARJORIE [address] [place] [id number] Social History Tobacco Use Types Packs/Day Years Used Date Smoking Tobacco: Former Cigarettes Q uit: 1973 Smokeless Tobacco: Never Alcohol Use Standard Drinks/Week Comments Not Currently [...] Orientation Heterosexual (straight) 07/20 11:32 AM EDT documented as of this encounter Plan of Treatment Not on file documented as of this encounter Visit Diagnoses Not on filedocumented in this encounter
--- OUTSIDE RECORDS SUMMARY | 2025-01-12 11:10 | XMS_ITS ---
Author Name [facility] Organization Unknown History of Medication Use Medication Directions Dispensed Refills Start Date End Date Stat us metoPROLOL TARTRATE (LOPRESSOR) 25 MG tablet Take 25 mg by mouth. 05/12/2023 acti ve polyethylene glycol-electrolytes (NuLYTELY, TRILYTE) 420 g solution Take as directed for Colonoscopy/GI Procedure. See administration instructions. 08/24/2023 active esomeprazole (NexIUM) 40 MG capsule Take 40 mg by mouth daily. 06/04/2023 active zolpidem (AMBIEN) 5 MG tablet Take 1 tablet (5 mg total) by mouth nightly. 08/10/2023 active zolpidem (AMBIEN) 5 MG tablet Take 10 mg by mouth nightly. 08/10/2023 active
--- OUTSIDE RECORDS SUMMARY | 2025-01-12 11:11 | XMS_ITS ---
Author Organization [facility] Address [address] [facility] [address] [place] [address] Care Team Providers Care Bpo Specialist Name Role Phone Cristo Spring Primary Care Provider TAMIKO Pena Unavailable [phone] Allergies No Known Allergies REASON FOR VISIT bilateral foot pain Medications Medication SIG (Take, Route, Frequency, Duration) Notes Start Date End Date Status Lisinopril 40 MG 1 tablet Orally Once a day Active Metoprolol Succinate ER 100 MG 1 tablet Orally Once a day Active Paxlovid (150/100) 10 x 150 MG & 10 x 100MG as directed Orally [facility]- shell traMADol HCl 50 MG 1 tablet as needed Orally Once a day Active Zolpidem Tartrate 5 MG 1 tablet at bedti mo as needed Orally Once a day Active Colchicine 0.6 MG 1 tablet Orally Active amLODIPine Besylate 2.5 MG 1 tablet Oral ly Once a day Active Aspirin 81 81 MG 1 tablet Orally Once a day Active Atorvastatin Calcium 80 MG 1 tablet Oral ly Once a day Active Cialis 20 MG 1 tablet as needed Orally Once a day Active Esomeprazole Magnesium 40 MG 1 capsule O rally Once a day Active hydroCHLOROthiazide 25 MG 1 tablet in morning Orally Once a day Active Vital Signs Temperature 97.5 degrees Fahrenheit 08/17/20 Heart Rate 88 /min 08/17/2023 Respiratory Rate 20 /min 08/17/2023 Height 5ft 7in in 08/17/2023 Weight 236.5 lbs 08/17/2023 BMI 37.04 kg/m2 08/17/2023 Encounters Encounter Location Date Provider Diagnosis [facility] [address] [facility] [address] [place] [address] 08/17/2023 TAMIKO PICHARDO Right foot pain M79. 671 ; Left foot pain M79.672 ; Spinal stenosis of lumbar region with neurogenic claudication M48.062 and Lumbar back pain with radiculopathy affecting lower extremity M54.16 Assessments Encounter Date Diagnosis (ICD Code) Assessment Notes Treatment Notes Treatment Clinical Notes Section Notes 08/17/2023 Right foot pain (ICD-10 - M79.671) 08/17/2023 Left foot pain (ICD-10 - M79.672) 08/17/2023 Spinal stenosis of lumbar region with neurogenic claudication (ICD-10 - M48.062) Patient examined and evaluated. Past medical history reviewed. He has neurogenic pain to both lower extremities that has been ongoing for a year now. I did take weightbearing radiographs of the right and left foot today. No abnormal bony pathology to explain his symptoms. I discussed his spinal stenosis and how this affects the sensory and motor function of his lower extremities. Unfortunately there are no treatments that I can offer that will improve this for him. He needs to continue follow up with pain management and neurosurgery. He expressed understanding of this. He can follow back with me as needed. 08/17/2023 Lumbar back pain with radiculopathy affecting lower extremity (ICD-10 - M54.16) Plan Of Treatment Treatment Notes Assessment Notes Spinal stenosis of lumbar re gion with neurogenic claudication Patient examined and evaluated. Past medical history reviewed. He has neurogenic pain to both lower extremities that has been ongoing for a year now. I did take weightbearing radiographs of the right and left foot today. No abnormal bony pathology to explain his symptoms. I discussed his spinal stenosis and how this affects the sensory and motor function of his lower extremities. Unfortunately there are no treatments that I can offer that will improve this for him. He needs to continue follow up with pain management and neurosurgery. He expressed understanding of this. He can follow back with me as needed. Progress Notes * Leroy ANAYA PDOB:04/1945 (77 yo M)Acc No.[id number]:08/17/2023 Progress Notes Patient:?Leroy Anaya P Provider:?Tamiko Marc DPM :1945???Age:77 Y???Sex:Male Rishabh e:08/17/2023 Address:[place], [id number] Pcp:Cristo Spring Subjective: * Chief Complaints: * ???Bilateral foot pain * HPI: ???Foot & Ankle:? Mr. Anaya is a pleasant 77 year old male who presents for a consultation. He has been having issues with both his feet for about a year now. He states the right foot becomes very numb and at times he feels like he can't use it. He also gets tingling and prickly sensations in the right foot. This can occur at the ball of the foot and at the top of the foot. He has noticed that this seems to be starting on the left to a lesser extent. He finds that he has a hard time with any prolonged walking due to pain in his lower extremities. He denies any issues with tripping or falling. He did have an evaluation with a neurosurgeon back in April of this year and was found the have severe lumbar stenosis with a large right disc herniation at L2-L3. Surgery was discussed with the patient, but due to the extensiveness it was agreed that he try conservative measures first. Patient denies any lower back pain. All his symptoms are in the lower legs and feet. He did meet with pain management last month and he has been scheduled for epidural injections 08/26. In the meantime he has tried tramadol and tylenol with minimal relief. * ROS:?General/Constitutional:?Denies?Chills.?Denies?Fatigue.?Denies?Fever.?Denies?Headache.?Allergy/Immunology:?Denies?Hives.?Denies?Itching.?Denies?Rash.?Endocrine:?Denies?Excessive sweating.?Denies?Excessive thirst.?Denies?Frequent urination.?Respiratory:?Denies?Cough.?Denies?Shortness of breath,?denies.?Denies?Wheezing.?Cardiovascular:?Denies?Chest pain.?Denies?Claudication.?Denies?Cyanosis.?Gastrointestinal:?Denies?Abdominal pain.?Denies?Constipation.?Denies?Diarrhea.?Hematology:?Denies?Bleeding problems,?denies.?Denies?Easy bruising,?denies.?Denies?Swollen glands.?Musculoskeletal:?Patient complaining of?right and left foot pain.?Admits?Arthritis/Arthralgia.?Admits?Back problems.?Admits?Leg cramps.?Denies?Limping gait.?Peripheral Vascular:?Denies?Blanching of skin.?Blood clots in legs?Denies.?Denies?Cold extremities.?Skin:?Denies?Masses.?Denies?Nail changes.?Denies?Skin lesion(s).?Neurologic:?Denies?Paralysis.?Admits?Tingling/Numbness,?both feet.?Denies?Tremor.?Psychiatric:?Denies?Auditory/visual hallucinations.?Denies?Delusions.?Denies?Suicidal thoughts.? * Medical History:? * Surgical History:?right ankl e ORIF * Hospitalization/Major Diagno stic Procedure:?right ankle surgery * Family History:?Father: TB.? * Social History:?Tobacco: former smoker Alcohol: no Lives with . * Medications:?TakingZolpidem Tartrate 5 MG Tablet 1 tablet at bedtime as needed Orally Once a day traMADol HCl 50 MG Tablet 1 tablet as needed Orally Once a day Metoprolol Succinate ER 100 MG Tablet Extended Release 24 Hour 1 tablet Orally Once a day Lisinopril 40 MG Tablet 1 tablet Orally Once a day hydroCHLOROthiazide 25 MG Tablet 1 tablet in the morning Orally Once a day Esomeprazole Magnesium 40 MG Capsule Delayed Release 1 capsule Orally Once a day Colchicine 0.6 MG Tablet 1 tablet Orally Cialis 20 MG Tablet 1 tablet as needed Orally Once a day Atorvastatin Calcium 80 MG Tablet 1 tablet Orally Once a day Aspirin 81 81 MG Tablet Delayed Release 1 tablet Orally Once a day amLODIPine Besylate 2.5 MG Tablet 1 tablet Orally Once a day Taking Zolpidem Tartrate 5 MG Tablet 1 tablet at bedtime as needed Orally Once a day Taking traMADol HCl 50 MG Tablet 1 tablet as needed Orally Once a day Taking Metoprolol Succinate ER 100 MG Tablet Extended Release 24 Hour 1 tablet Orally Once a day Taking Lisinopril 40 MG Tablet 1 tablet Orally Once a day Taking hydroCHLOROthiazide 25 MG Tablet 1 tablet in the morning Orally Once a day Taking Esomeprazole Magnesium 40 MG Capsule Delayed Release 1 capsule Orally Once a day Taking Colchicine 0.6 MG Tablet 1 tablet Orally Taking Cialis 20 MG Tablet 1 tablet as needed Orally Once a day Taking Atorvastatin Calcium 80 MG Tablet 1 tablet Orally Once a day Taking Aspirin 81 81 MG Tablet Delayed Release 1 tablet Orally Once a day Taking amLODIPine Besylate 2.5 MG Tablet 1 tablet Orally Once a day Not-TakingPaxlovid (150/100) 10 x 150 MG & 10 x 100MG Tablet Therapy Pack as directed Orally Medication List reviewed and reconciled with the patientNot-Taking Paxlovid (150/100) 10 x 150 MG & 10 x 100MG Tablet Therapy Pack as directed Orally Medication List reviewed and reconciled with the patient * Allergies:?N.K.D.A.no[Allerg ies Verified] Objective: * Vitals:?Wt: 236.5 lbs, Ht: 5 ft 7in, BMI: 37.04 Index, HR: 88 /min, Temp: 97.5 F, RR: 20 /min, Ht-cm: 170.18, Wt-k.27 kg. * Examination: ???General Examination: ???This is an elderly male. Alert and oriented today and in no acute distress. Patient comes in ambulating in sneakers without using any assistive devices. Breathing is regular and unlabored while sitting. Affect is pleasant and cooperative. No unusual anxiety or depression noted. Hearing intact to spoken word. No evidence of visual impairment that would impact self care or ambulation. Patient has palpable dorsalis pedis and posterior tibial pulse bilaterally. Small spider like varicosities visualized. No peripheral edema present. Capillary refill is less than 3 seconds to all digits bilaterally. Light touch sensation is symmetrical to all lower extremity dermatomes. Babinski is downgoing. Dermal atrophy present to both feet. There are no open wounds, rashes, or lesions noted. There is no pain elicited on examination of the foot or ankle bilaterally. There is mild restricted range of motion to the right ankle joint without pain or crepitus. There is mild restricted range of motion and crepitus to the left 1st MPJ without any pain. No gross deformities. 5/5 strength for anterior, posterior, and lateral lower extremity muscle groups on the left and right. No muscle atrophy noted. Therapeutic Interventions: Assessment: * Assessment: 1.?Right foot pain - M79.671 (Primary)?2.?Left foot pain - M79.672?3.?Spinal stenosis of lumbar region with neurogenic claudication - M48.062?4.?Lumbar back pain with radiculopathy affecting lower extremity - M54.16? Plan: * Treatment: * Procedures:?RIGHT AND LEFT FOOT RADIOGRAPHS 08/17/2023 3 weight bearing views both feet (AP, LAT, LO PROJECTION/MO VIEW) Taken in the office and read by the physician. Osteopenia present bilaterally. Mild narrowing and cystic changes to the 1st metatarsal phalangeal joint. 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 Hardware present in the right tibia and fibula. There is a left os trigonum present. No abnormal soft tissue calcifications or radio opaque foreign bodies. ? * Procedure Codes:?66167 X-RAY EXAM OF FOOT 3 Views, Modifiers: RT 81354 X-RAY EXAM OF FOOT 3 Views, Modifiers: LT * Billing Information: * Visit Code:? 81589 Office Visit, New Pt., Level 3. * Procedure Codes:? 47220 X-RAY EXAM OF FOOT 3 Views. Modifiers: RT 01896 X-RAY EXAM OF FOOT 3 Views. Modifiers: LT * Sign off status: Completed true * Provider:Fani Marc DPM Date:?08/17 Generated for Jeanine sharif/[place]inton/eTransmitting on:?01/12/2025 11:10 AM EST History and Physical Notes * Examination Category Sub-Category Detail Notes Category Not es General Examination This is an elderly male. Alert and oriented today and in no acute distress. Patient comes in ambulating in sneakers without using any assistive devices. Breathing is regular and unlabored while sitting. Affect is pleasant and cooperative. No unusual anxiety or depression noted. Hearing intact to spoken word. No evidence of visual impairment that would impact self care or ambulation. Patient has palpable dorsalis pedis and posterior tibial pulse bilaterally. Small spider like varicosities visualized. No peripheral edema present. Capillary refill is less than 3 seconds to all digits bilaterally. Light touch sensation is symmetrical to all lower extremity dermatomes. Babinski is downgoing. Dermal atrophy present to both feet. There are no open wounds, rashes, or lesions noted. There is no pain elicited on examination of the foot or ankle bilaterally. There is mild restricted range of motion to the right ankle joint without pain or crepitus. There is mild restricted range of motion and crepitus to the left 1st MPJ without any pain. No gross deformities. 5/5 strength for anterior, posterior, and lateral lower extremity muscle groups on the left and right. No muscle atrophy noted.
--- OUTSIDE RECORDS SUMMARY | 2025-01-12 11:11 | XMS_ITS | Encounter Summary ---
Author Organization [facility] Address [address] [address] Phone Care Team Providers Care Pre Parole Counseling Aide Name Role Phone Cristo Spring MD Primary Care Provider [phone] Encounter Details Date Type Department Care Team (Late Contact Info) Description 01/11/2025 Orders Only [facility] [address] [place] [phone] Alonso Vance MD [facility] [address] [address] Social History Tobacco Use Types Packs/Day Years Used Date Smoking Tobacco: Never Alcohol Use Standard Drinks/Week Comments Yes 0 (1 standard drink = 0.6 oz pur e alcohol) light Sex and Gender Information Value Date Recorded Sex Assigned at Not on file Legal Sex Male 2:22 PM EDT Gender Identity Not on file Sexual Orientation Not on file documented as of this encounter Plan of Treatment Upcoming Encounters Date Type Department Care Team (Late Contact Info) Description 01/25/2025 9:20 AM EDT Office Visit [facility] [address] [address] Alonso Vance MD [address] [address] Pending Results Name Type Priority Associated Diagnoses Date /Time Protein, Total, Random Urine w/Creatinine (Protein/Creat Ratio) Lab Routine 01/11/2025 10:50 AM EST documented as of this encounter Procedures Procedure Name Priority Date/Time Associated Diagnosis Comments MICROSCOPIC EXAMINATION - DO NOT USE Routine 01/11/2025 10:50 AM EST PROTEIN / CREATININE RATIO, URINE Routine 01/11/2025 10:50 AM EST VITAMIN D 25 HYDROXY Routine 01/11/2025 10:50 AM EST URINALYSIS WITH MICROSCOPIC Routine 01/11/2025 10:50 AM EST CBC AND DIFFERENTIAL Routine 01/11/2025 10:50 AM EST URIC ACID Routine 01/11/2025 10:50 AM EST PHOSPHATE ( PHOSPHORUS) Routine 01/11/2025 10:50 AM EST PTH, INTACT Routine 01/11/2025 10:50 AM EST MAGNESIUM Routine 01/11/2025 10:50 AM EST COMPREHENSIVE METABOLIC PANEL Routine 01/11/2025 10:50 AM EST documented in this encounter Results * (ABNORMAL) PTH, Intact (01/11/2025 10:50 AM EST) PTH 69(H) 15 - 65 pg/mL [facility] 01/11/2025 10:5 0 AM EST 01/11/2025 us Alonso Vance MD LAB BLOOD ORDERABLES Final Re sult [facility] [address] [place] [address] * Magnesium (01/11/2025 10:50 AM EST) Magnesium 1.8 1.6 - 2.3 mg/dL [facility] 01/11/2025 10:5 0 AM EST 01/11/2025 Alonso Vance MD LAB BLOOD ORDERABLES Final Re sult Performing Organization Address City/[facility]/ZIP Co de Phone Number [facility] [address] [place] [address] * Phosphorus (01/11/2025 10:50 AM EST) Phosphorus 2.8 2.8 - 4.1 mg/dL [facility] 01/11/2025 10:5 0 AM EST 01/11/2025 Alonso Vance MD LAB BLOOD ORDERABLES Final Re sult Performing Organization Address [facility] Co de Phone Number [facility] [address] [place] [address] * Uric Acid (01/11/2025 10:50 AM EST) Uric Acid 7.9 3.8 - 8.4 mg/dL [facility] Comment:Therapeutic target f or gout patients: <6.0 01/11/2025 10:5 0 AM EST 01/11/2025 Alonso Vance MD LAB BLOOD ORDERABLES Final Re sult Performing Organization Address City/[facility]/ZIP Co de Phone Number [facility] [address] [place] [address] * Vitamin D 25 Hydroxy (01/11/2025 10:50 AM EST) Vitamin D, 25-OH, Total 30.8 30.0 - 100.0 ng/mL [facility] Comment: Vitamin D deficiency has been defined by the [place] of [employer] and an Endocrine Society practice guideline as a level of serum 25-OH vitamin D less than 20 ng/mL (1,2). The Endocrine Society went on to further define vitamin D insufficiency as a level between 21 and 29 ng/mL (2). 1. IOM ([place] of [employer]). 2010. Dietary reference ?? intakes for calcium and D. [place]: The ?? [employer] Press. 2. Stef MF, Valdo CAZARES, Michelle UNDERWOOD, et al. ?? Evaluation, treatment, and prevention of vitamin D ?? deficiency: an Endocrine Society clinical practice ?? guideline. JCEM. 2010; 96(7):1911-30. 01/11/2025 10:5 0 AM EST 01/11/2025 Alonso Vance MD LAB BLOOD ORDERABLES Final Re sult Performing Organization Address City/[facility]/ZIP Co de Phone Number [facility] [place] [address] [place] [address] * Microscopic Examination (01/11/2025 10:50 AM EST) WBC, Urine None seen 0 - 5 /hpf [facility] RBC, Urine 0-2 0 - 2 /hpf [facility] Squamous Epithelial, Urine None seen 0 - 10 /hpf [facility] Casts None seen None seen /lpf [facility] Bacteria, Urine None seen None seen/Few [facility] 01/11/2025 10:5 0 AM EST 01/11/2025 Alonso Vance MD LAB MICROBIOLOGY - GENERAL OR DERABLES Final Result Performing Organization Address City/[facility]/ZIP Co de Phone Number [facility] [address] [place] [address] * (ABNORMAL) Urinalysis with microscopic (01/11/2025 10:50 AM EST) Specific Marcy, Urine 1.021 1.005 - 1.030 [facility] [phone] pH Urine 6.5 5.0 - 7.5 [facility] Color, Urine Yellow Yellow [facility] Appearance Urine Clear Clear [facility] [place] WBC Esterase Urine Negative Negative [facility] Protein, Ur 1+(A) Negative/Tra ce [facility] [phone] Glucose, Ur Negative Negative [facility] Ketones, Urine Negative Negative [facility] [place] Blood Urine Negative Negative [facility] Bilirubin Urine Negative Negative [facility] [place] Urobilinogen Urine 1.0 0.2 - 1.0 mg/dL [facility] Nitrite, Urine Negative Negative [facility] [place] Microscopic Examination See below: [facility] Comment:Microscopic was donnie cated and was performed. 01/11/2025 10:5 0 AM EST 01/11/2025 us Alonso Vance MD LAB URINE ORDERABLES Final Re sult [facility] [address] [place] [address] * (ABNORMAL) Comprehensive Metabolic Panel (01/11/2025 10:50 AM EST) Pathologist [facility] Glucose 130(H) 70 - 99 mg/dL [facility] BUN 24 8 - 27 mg/dL [facility] Creatinine 1.30(H) 0.76 - 1.27 mg/dL [facility] eGFR CKD-EPI CR 2020 56(L) >59 mL/min/1.7 3 [facility] BUN/Creatinine Ratio 18 10 - 24 [facility] Sodium 146(H) 134 - 144 mmol/L [facility] Potassium 4.4 3.5 - 5.2 mmol/L [facility] Chloride 106 96 - 106 mmol/L [facility] Bicarbonate (CO2) 23 20 - 29 mmol/L [facility] Calcium 9.9 8.6 - 10.2 mg/dL [facility] Total Protein 6.8 6.0 - 8.5 g/dL [facility] Albumin 4.2 3.8 - 4.8 g/dL [facility] Globulin 2.6 1.5 - 4.5 g/dL [facility] Total Bilirubin 0.5 0.0 - 1.2 mg/dL [facility] Alkaline Phosphatase 96 44 - 121 IU/L [facility] AST (SGOT) 21 0 - 40 IU/L [facility] ALT (SGPT) 21 0 - 44 IU/L [facility] 01/11/2025 10:5 0 AM EST 01/11/2025 us Alonso Vance MD LAB BLOOD ORDERABLES Final Re sult [facility] [address] [place] [address] * CBC and Differential (01/11/2025 10:50 AM EST) WBC 9.7 3.4 - 10.8 x10E3/uL [facility] RBC 5.08 4.14 - 5.80 x10E6/uL [facility] Hemoglobin 14.0 13.0 - 17.7 g/dL [facility] Hematocrit 42.5 37.5 - 51.0 % [facility] MCV 84 79 - 97 fL [facility] MCH 27.6 26.6 - 33.0 pg [facility] MCHC 32.9 31.5 - 35.7 g/dL [facility] RDW 13.6 11.6 - 15.4 % [facility] Platelets 210 150 - 450 x10E3/uL [facility] Neutrophils Relative 65 Not Estab. % [facility] Lymphocytes Relative 24 Not Estab. % [facility] Monocytes 8 Not Estab. % [facility] Eosinophils Relative 2 Not Estab. % [facility] Basophils Relative 0 Not Estab. % [facility] Neutrophils Absolute 6.4 1.4 - 7.0 x10E3/uL [facility] Lymphocytes Absolute 2.3 0.7 - 3.1 x10E3/uL [facility] Monocytes Absolute 0.8 0.1 - 0.9 x10E3/uL [facility] Eosinophils Absolute 0.2 0.0 - 0.4 x10E3/uL [facility] Basophils Absolute 0.0 0.0 - 0.2 x10E3/uL [facility] Immature Granulocytes 1 Not Estab. % [facility] Immature Grans (Absolute) 0.1 0.0 - 0.1 x10E3/uL [facility] 01/11/2025 10:5 0 AM EST 01/11/2025 us Alonso Vance MD LAB BLOOD ORDERABLES Final Re sult [facility] [address] [place] [phone] documented in this encounter Visit Diagnoses Not on filedocumented in this encounter Care Teams Pre Parole Counseling Aide Relationship Specialty Start Date End Date Cristo Spring MD [address] [place] [address] PCP - General Internal Medicine 09/14/22 documented as of this encounter
--- OUTSIDE RECORDS SUMMARY | 2025-01-12 11:11 | XMS_ITS | Clinical Summary ---
Author Organization [facility] Address [address] [place] [address] Phone Care Team Providers Care Truck Repair Supervisor Name Role Phone Cristo Spring MD Primary Care Provider [phone] Allergies No known active allergies Medications Aspirin 81 MG capsule Take 1 tablet by mouth 1 (one) time each day 07/06/2018 Active atorvastatin (LIPITOR) 80 MG tablet Take 80 mg by mouth 1 (one) time each day 06/06/2018 Active colchicine 0.6 MG tablet Take 0.6 mg by mouth 2 (two) times a day if needed 07/20/2018 Active hydroCHLOROthiaz madisyn 25 MG tablet Take 25 mg by mouth 1 (one) time each day 06/04/2018 Active lisinopril 40 MG tablet Take 40 mg by mouth 1 (one) time each day 05/18/2018 Active zolpidem (AMBIEN) 10 MG tablet Take 5 mg by mouth every night 07/20/2018 Active metoprolol succinate XL (TOPROL XL) 50 MG 24 hr tablet Take 50 mg by mouth 1 (one) time each day 08/09/2018 Active amLODIPine (NORVASC) 2.5 MG tablet Take 2.5 mg by mouth 1 (one) time each day Active esomeprazole (NexIUM) [address] capsule Take 40 mg by mouth 1 (one) time each day Do not open capsule. 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 No return to angina. No discomfort. Continue risk factor modification Encounters Date Type Department Care Team Description 01/11/2025 Orders Only [facility] [address] [phone] Alonso Vance MD from Last 3 Months Social History Tobacco Use Types Packs/Day Years Used Date Smoking Tobacco: Never Tobacco Cessation:Counseling Given: Not Answered Alcohol Use Standard Drinks/Week Comments Yes 0 (1 standard drink = 0.6 oz pur e alcohol) light Sex and Gender Information Value Date Recorded Sex Assigned at Not on file Legal Sex Male 2:22 PM EDT Gender Identity Not on file Sexual Orientation Not on file Last Filed Vital Signs Vital Sign Reading Time Taken Comments Blood Pressure 146/70 01/26/2024 9:03 AM EDT Pulse 74 01/26/2024 9:03 AM EDT Temperature - - Respiratory Rate - - Oxygen Saturation 95% 01/26/2024 9:03 AM EDT Inhaled Oxygen Concentration - - Weight 109 kg (239 lb 12.8 oz) 01/26/2024 9:03 A M EDT Height 171.5 cm (5' 7.5 ) 01/26/2024 9:03 AM EDT Body Mass Index 37 01/26/2024 9:03 AM EDT Plan of Treatment Upcoming Encounters Date Type Department Care Team (Late st Contact Info) Description 01/25/2025 9:20 AM EDT Office Visit [facility] [address] [phone] Alonso Vance MD [address] [phone] Health Maintenance Due Date Last Done Comments Pneumococcal Vaccine: 65+ Ye ars (2 of 2 - PCV) 12/22/2014 12/22/2013 Diabetes: Hemoglobin A1C 07/27/2023 Diabetes: Ophthalmology Exam 07/27/2023 Diabetes: Pedal Pulse Checked 07/27/2023 Diabetes: Sensory Foot Exam 07/27/2023 Diabetes: Visual Foot Exam 07/27/2023 Influenza Vaccine (#1) 2024 Hepatitis B Vaccine Aged Out No longe r eligible based on patient's age to complete this topic Procedures Procedure Name Priority Date/Time Associated Diagnosis Comments PTH, INTACT Routine 01/11/2025 10:50 AM EST MAGNESIUM Routine 01/11/2025 10:50 AM EST PHOSPHATE ( PHOSPHORUS) Routine 01/11/2025 10:50 AM EST URIC ACID Routine 01/11/2025 10:50 AM EST VITAMIN D 25 HYDROXY Routine 01/11/2025 10:50 AM EST PROTEIN / CREATININE RATIO, URINE Routine 01/11/2025 10:50 AM EST URINALYSIS WITH MICROSCOPIC Routine 01/11/2025 10:50 AM EST COMPREHENSIVE METABOLIC PANEL Routine 01/11/2025 10:50 AM EST CBC AND DIFFERENTIAL Routine 01/11/2025 10:50 AM EST MICROSCOPIC EXAMINATION - DO NOT USE Routine 01/11/2025 10:50 AM EST from Last 3 Months Results * Microscopic Examination (01/11/2025 10:50 AM EST) WBC, Urine None seen 0 - 5 /hpf [facility] RBC, Urine 0-2 0 - 2 /hpf [facility] Squamous Epithelial, Urine None seen 0 - 10 /hpf [facility] Casts None seen None seen /lpf [facility] Bacteria, Urine None seen None seen/Few [facility] 01/11/2025 10:5 0 AM EST 01/11/2025 Alonso Vance MD LAB MICROBIOLOGY - GENERAL OR DERABLES Final Result Performing Organization Address [facility]/ZIP Co de Phone Number [facility] [address] [place] [address] * Vitamin D 25 Hydroxy (01/11/2025 10:50 AM EST) Vitamin D, 25-OH, Total 30.8 30.0 - 100.0 ng/mL [facility] Comment: Vitamin D deficiency has been defined by the [place] of Medicine and an Endocrine Society practice guideline as a level of serum 25-OH vitamin D less than 20 ng/mL (1,2). The Endocrine Society went on to further define vitamin D insufficiency as a level between 21 and 29 ng/mL (2). 1. IOM ([place] of Medicine). 2010. Dietary reference ?? intakes for calcium and D. [place]: The ?? National [employer] Press. 2. Stef MF, Valdo NC, Michelle UNDERWOOD, et al. ?? Evaluation, treatment, and prevention of vitamin D ?? deficiency: an Endocrine Society clinical practice ?? guideline. JCEM. 2010; 96(7):1911-30. 01/11/2025 10:5 0 AM EST 01/11/2025 Alonso Vance MD LAB BLOOD ORDERABLES Final Re sult Performing Organization Address [facility]/ZIP Co de Phone Number [facility] [address] [place] [address] * (ABNORMAL) Urinalysis with microscopic (01/11/2025 10:50 AM EST) Specific [place], Urine 1.021 1.005 - 1.030 [facility] [phone] pH Urine 6.5 5.0 - 7.5 [facility] Color, Urine Yellow Yellow [facility] Appearance Urine Clear Clear [facility] WBC Esterase Urine Negative Negative [facility] Protein, Ur 1+(A) Negative/Tra ce [facility] [phone] Glucose, Ur Negative Negative [facility] Ketones, Urine Negative Negative [facility] Blood Urine Negative Negative [facility] Bilirubin Urine Negative Negative [facility] Urobilinogen Urine 1.0 0.2 - 1.0 mg/dL [facility] Nitrite, Urine Negative Negative [facility] Microscopic Examination See below: [facility] Comment:Microscopic was donnie cated and was performed. 01/11/2025 10:5 0 AM EST 01/11/2025 us Alonso Vance MD LAB URINE ORDERABLES Final Re sult [facility] [address] [place] [address] * CBC and Differential (01/11/2025 10:50 AM EST) WBC 9.7 3.4 - 10.8 x10E3/uL [facility] RBC 5.08 4.14 - 5.80 x10E6/uL [facility] Hemoglobin 14.0 13.0 - 17.7 g/dL [facility] Hematocrit 42.5 37.5 - 51.0 % [facility] MCV 84 79 - 97 fL [facility] MCH 27.6 26.6 - 33.0 pg [facility] MCHC 32.9 31.5 - 35.7 g/dL [facility] RDW 13.6 11.6 - 15.4 % [facility] Platelets 210 150 - 450 x10E3/uL [facility] Neutrophils Relative 65 Not Estab. % [facility] Lymphocytes Relative 24 Not Estab. % [facility] Monocytes 8 Not Estab. % [facility] Eosinophils Relative 2 Not Estab. % [facility] Basophils Relative 0 Not Estab. % [facility] Neutrophils Absolute 6.4 1.4 - 7.0 x10E3/uL [facility] Lymphocytes Absolute 2.3 0.7 - 3.1 x10E3/uL [facility] Monocytes Absolute 0.8 0.1 - 0.9 x10E3/uL [facility] Eosinophils Absolute 0.2 0.0 - 0.4 x10E3/uL [facility] Basophils Absolute 0.0 0.0 - 0.2 x10E3/uL [facility] Immature Granulocytes 1 Not Estab. % [facility] Immature Grans (Absolute) 0.1 0.0 - 0.1 x10E3/uL [facility] 01/11/2025 10:5 0 AM EST 01/11/2025 us Alonso Vance MD LAB BLOOD ORDERABLES Final Re sult [facility] [address] [place] [address] * Uric Acid (01/11/2025 10:50 AM EST) Uric Acid 7.9 3.8 - 8.4 mg/dL [facility] Comment:Therapeutic target f or gout patients: <6.0 01/11/2025 10:5 0 AM EST 01/11/2025 us Alonso Vance MD LAB BLOOD ORDERABLES Final Re sult [facility] [address] [place] [address] * Phosphorus (01/11/2025 10:50 AM EST) Phosphorus 2.8 2.8 - 4.1 mg/dL [facility] 01/11/2025 10:5 0 AM EST 01/11/2025 Alonso Vance MD LAB BLOOD ORDERABLES Final Re sult Performing Organization Address [facility] Co de Phone Number [facility] [address] [place] [address] * (ABNORMAL) PTH, Intact (01/11/2025 10:50 AM EST) PTH 69(H) 15 - 65 pg/mL [facility] 01/11/2025 10:5 0 AM EST 01/11/2025 Alonso Vance MD LAB BLOOD ORDERABLES Final Re sult Performing Organization Address [facility] Co de Phone Number [facility] [address] [place] [address] * Magnesium (01/11/2025 10:50 AM EST) Magnesium 1.8 1.6 - 2.3 mg/dL [facility] 01/11/2025 10:5 0 AM EST 01/11/2025 us Alonso Vance MD LAB BLOOD ORDERABLES Final Re sult [facility] [address] [place] [address] * (ABNORMAL) Comprehensive Metabolic Panel (01/11/2025 10:50 AM EST) Glucose 130(H) 70 - 99 mg/dL [facility] BUN 24 8 - 27 mg/dL [facility] Creatinine 1.30(H) 0.76 - 1.27 mg/dL [facility] eGFR CKD-EPI CR 2020 56(L) >59 mL/min/1.7 3 [facility] BUN/Creatinine Ratio 18 10 - 24 [facility] Sodium 146(H) 134 - 144 mmol/L [facility] Potassium 4.4 3.5 - 5.2 mmol/L [facility] Chloride 106 96 - 106 mmol/L [facility] Bicarbonate (CO2) 23 20 - 29 mmol/L [facility] Calcium 9.9 8.6 - 10.2 mg/dL [facility] Total Protein 6.8 6.0 - 8.5 g/dL [facility] Albumin 4.2 3.8 - 4.8 g/dL [facility] Globulin 2.6 1.5 - 4.5 g/dL [facility] Total Bilirubin 0.5 0.0 - 1.2 mg/dL [facility] Alkaline Phosphatase 96 44 - 121 IU/L [facility] AST (SGOT) 21 0 - 40 IU/L [facility] ALT (SGPT) 21 0 - 44 IU/L [facility] 01/11/2025 10:5 0 AM EST 01/11/2025 us Alonso Vance MD LAB BLOOD ORDERABLES Final Re sult [facility] [address] [place] [address] from Last 3 Months [id number]) AETNA [facility] ADV PPO ([id number]) Care Teams Truck Repair Supervisor Relationship Specialty Start Date End Date Cristo Spring MD [address] [place] [address] PCP - General Internal Medicine 09/14/22
== END 2025-01-12 11:31 | disposition home or self-care (01) ==
PROVIDERS: PCP Internal Medicine; Visit Provider Neurological Surgery
DX: M48.062 Spinal stenosis, lumbar region with neurogenic claudication (principal)
CPT/HCPCS: 99204

== ENCOUNTER → 2025-01-12 10:53 | Outpatient (BNV) | payer OTHER, SELFPAY | PROVIDERS: PCP Internal Medicine; Visit Provider Radiology Diagnostic Radiology | DX: M43.16 Spondylolisthesis, lumbar region (principal) | CPT/HCPCS: 72110 ==

== ENCOUNTER 2025-01-30 09:27 | Day surgery (SDC) | payer MEDICARE, SELFPAY ==
--- OUTSIDE RECORDS SUMMARY | 2025-01-17 12:02 | XMS_ITS | Clinical Summary ---
Author Organization [facility] Address [address] [place] [address] Care Team Providers Care Examination Supervisor Name Role Phone Unavailable Primary Care Provider [...] mg total) by mouth nightly. 08/10/2023 Active [place]-3 Fatty Acids (FISH OIL PO) Take 1 [...]
--- OUTSIDE RECORDS SUMMARY | 2025-01-17 12:02 | XMS_ITS | Clinical Summary ---
Author Organization [facility] Address [address] [place] [address] Care Team Providers Care Quarry Supervisor Open Pit Name Role Phone Cristo Spring MD Primary Care Provider Allergies No known active allergies Medications Medication [...] every night at bedtime. 5 07/20/2018 Active [place]-3 Fatty Acids (FISH OIL PO) Take 1 [...] Advance Directives For more information, please contact: [phone] Latest Code Status on File Code Status Date Activated Date Inactivated Comments Full Code 08/16/2018 11:55 AM 08/16/2018 6:37 PM This code status was ascertained in the following way: discussion with patient. Care Teams Quarry Supervisor Open Pit Relationship Specialty Start Date End Date Cristo Spring MD [address] [address] PCP - General Air Conditioning Mechanic Industrial 03/08/18
--- OUTSIDE RECORDS SUMMARY | 2025-01-17 12:02 | XMS_ITS | Clinical Summary ---
Author Organization [facility] Address [address] [facility] [address] [place] [address] Phone Care Team Providers Care Portable Machine Cutter Name Role Phone Cristo Spring MD Primary Care Provider [phone] Allergies No known active allergies Medications Aspirin [...] Orders Only [facility] [address] [phone] Alonso Vance MD from Last 3 Months [...] Office Visit [facility] [address] [phone] Alonso Vance MD [address] [phone] Health Maintenance Due Date Last Done Comments [...] None seen 0 - 5 /hpf [facility] [place] RBC, Urine 0-2 0 - 2 /hpf [facility] [place] Squamous Epithelial, Urine None seen 0 - 10 /hpf [facility] [place] Casts None seen None seen /lpf [facility] [place] Bacteria, Urine None seen None seen/Few [facility] [place] 01/11/2025 10:5 0 AM EST 01/11/2025 Alonso Vance MD LAB MICROBIOLOGY - GENERAL OR DERABLES Final Result Performing Organization Address City/[facility]/ZIP Co de Phone Number [facility] [address] [place] [address] * Protein, Total, Random Urine w/Creatinine (Protein/Creat Ratio) (01/11/2025 10:50 AM EST) Creatinine, Ur 180.0 Not Estab. mg/dL [facility] [place] Protein, Ur 26.5 Not Estab. mg/dL [facility] [place] Urine Protein/Creatin ine Ratio 147 0 - 200 mg/g creat [facility] 01/11/2025 10:5 0 AM EST 01/11/2025 Alonso Vance MD LAB URINE ORDERABLES Final Re sult Performing Organization Address [facility] Co de Phone Number [facility] [address] [place] [address] * Vitamin D 25 Hydroxy (01/11/2025 10:50 AM EST) Vitamin D, 25-OH, Total 30.8 30.0 - 100.0 ng/mL [facility] Comment: Vitamin D deficiency has been defined by the [place] of Medicine and an Endocrine Society practice guideline as a level of serum 25-OH vitamin D less than 20 ng/mL (1,2). The Endocrine Society went on to further define vitamin D insufficiency as a level between 21 and 29 ng/mL (2). 1. IOM ([place] of Medicine). 2010. Dietary reference ?? intakes for calcium and D. [place]: The ?? National [employer] Press. 2. Stef MF, Valdo [place], Michelle UNDERWOOD, et al. ?? Evaluation, treatment, and prevention of vitamin D ?? deficiency: an Endocrine Society clinical practice ?? guideline. JCEM. 2010; 96(7):1911-30. 01/11/2025 10:5 0 AM EST 01/11/2025 Alonso Vance MD LAB BLOOD ORDERABLES Final Re sult Performing Organization Address City/[facility]/ZIP Co de Phone Number [facility] [place] [address] [place] [address] * (ABNORMAL) Urinalysis with microscopic (01/11/2025 10:50 AM EST) Specific [place], Urine 1.021 1.005 - 1.030 [facility] [place] pH Urine 6.5 5.0 - 7.5 [facility] [place] Color, Urine Yellow Yellow [facility] [place] Appearance Urine Clear Clear [facility] [place] [phone] WBC Esterase Urine Negative Negative [facility] [place] Protein, Ur 1+(A) Negative/Tra ce [facility] [place] Glucose, Ur Negative Negative [facility] [place] Ketones, Urine Negative Negative [facility] [place] Blood Urine Negative Negative [facility] [place] Bilirubin Urine Negative Negative [facility] [place] Urobilinogen Urine 1.0 0.2 - 1.0 mg/dL [facility] [place] Nitrite, Urine Negative Negative [facility] [place] Microscopic Examination See below: [facility] [place] Comment:Microscopic was donnie cated and was performed. 01/11/2025 10:5 0 AM EST 01/11/2025 Alonso Vance MD LAB URINE ORDERABLES Final Re sult [facility] [place] [address] [place] [address] * CBC and Differential (01/11/2025 10:50 AM EST) WBC 9.7 3.4 - 10.8 x10E3/uL [facility] [place] RBC 5.08 4.14 - 5.80 x10E6/uL [facility] [place] Hemoglobin 14.0 13.0 - 17.7 g/dL [facility] [place] Hematocrit 42.5 37.5 - 51.0 % [facility] [place] MCV 84 79 - 97 fL [facility] [place] MCH 27.6 26.6 - 33.0 pg [facility] [place] MCHC 32.9 31.5 - 35.7 g/dL [facility] [place] RDW 13.6 11.6 - 15.4 % [facility] [place] Platelets 210 150 - 450 x10E3/uL [facility] [place] Neutrophils Relative 65 Not Estab. % [facility] [place] Lymphocytes Relative 24 Not Estab. % [facility] [place] Monocytes 8 Not Estab. % [facility] [place] Eosinophils Relative 2 Not Estab. % [facility] [place] Basophils Relative 0 Not Estab. % [facility] [place] Neutrophils Absolute 6.4 1.4 - 7.0 x10E3/uL [facility] [place] Lymphocytes Absolute 2.3 0.7 - 3.1 x10E3/uL [facility] [place] Monocytes Absolute 0.8 0.1 - 0.9 x10E3/uL [facility] [place] Eosinophils Absolute 0.2 0.0 - 0.4 x10E3/uL [facility] [place] Basophils Absolute 0.0 0.0 - 0.2 x10E3/uL [facility] [place] Immature Granulocytes 1 Not Estab. % [facility] [place] Immature Grans (Absolute) 0.1 0.0 - 0.1 x10E3/uL [facility] [place] 01/11/2025 10:5 0 AM EST 01/11/2025 Alonso Vance MD LAB BLOOD ORDERABLES Final Re sult [facility] [place] [address] [place] [address] * Uric Acid (01/11/2025 10:50 AM EST) Uric Acid 7.9 3.8 - 8.4 mg/dL [facility] [place] Comment:Therapeutic target f or gout patients: <6.0 01/11/2025 10:5 0 AM EST 01/11/2025 Alonso Vance MD LAB BLOOD ORDERABLES Final Re sult Performing Organization Address City/[facility]/ZIP Co de Phone Number [facility] [place] [address] [place] [address] * Phosphorus (01/11/2025 10:50 AM EST) Phosphorus 2.8 2.8 - 4.1 mg/dL [facility] [place] 01/11/2025 10:5 0 AM EST 01/11/2025 Alonso Vance MD LAB BLOOD ORDERABLES Final Re s[facility] [place] [address] [place] [address] * (ABNORMAL) PTH, Intact (01/11/2025 10:50 AM EST) Pathologist [facility] PTH 69(H) 15 - 65 pg/mL [facility] [place] 01/11/2025 10:5 0 AM EST 01/11/2025 Alonso Vance MD LAB BLOOD ORDERABLES [facility] [place] [address] [place] [address] * Magnesium (01/11/2025 10:50 AM EST) [facility] Magnesium 1.8 1.6 - 2.3 mg/dL [facility] 01/11/2025 10:5 0 AM EST 01/11/2025 Alonso Vance MD LAB BLOOD ORDERABLES Final Re sult Performing Organization Address City/[facility]/ZIP Co de Phone Number [facility] [place] [address] [place] [address] * (ABNORMAL) Comprehensive Metabolic Panel (01/11/2025 10:50 AM EST) [facility] Glucose 130(H) 70 - 99 mg/dL [facility] [place] BUN 24 8 - 27 mg/dL [facility] [place] Creatinine 1.30(H) 0.76 - 1.27 mg/dL [facility] [place] eGFR CKD-EPI CR 2020 56(L) >59 mL/min/1.7 3 [facility] [place] BUN/Creatinine Ratio 18 10 - 24 [facility] [place] Sodium 146(H) 134 - 144 mmol/L [facility] [place] Potassium 4.4 3.5 - 5.2 mmol/L [facility] [place] Chloride 106 96 - 106 mmol/L [facility] [place] Bicarbonate (CO2) 23 20 - 29 mmol/L [facility] [place] Calcium 9.9 8.6 - 10.2 mg/dL [facility] [place] Total Protein 6.8 6.0 - 8.5 g/dL [facility] [place] Albumin 4.2 3.8 - 4.8 g/dL [facility] [place] Globulin 2.6 1.5 - 4.5 g/dL [facility] [place] Total Bilirubin 0.5 0.0 - 1.2 mg/dL [facility] [place] Alkaline Phosphatase 96 44 - 121 IU/L [facility] [place] AST (SGOT) 21 0 - 40 IU/L [facility] [place] ALT (SGPT) 21 0 - 44 IU/L [facility] [place] 01/11/2025 10:5 0 AM EST 01/11/2025 us Alonso Vance MD LAB BLOOD ORDERABLES Final Re sult [facility] [place] [address] [place] [address] from Last 3 Months Insurance [employer] MCR ADV PPO ([id number]) [employer] MCR ADV PPO ([id number]) Care Teams Portable Machine Cutter Relationship Specialty Start Date End Date Cristo Spring MD [address] [place] [address] [address] [place] [address] PCP - General Internal Medicine 09/14/22
--- OUTSIDE RECORDS SUMMARY | 2025-01-17 12:02 | XMS_ITS | Encounter Summary ---
Author Organization [facility] Address [address] [place] [address] Care Team Providers Care Police Radio Dispatcher Name Role Phone Unavailable Primary Care Provider Unavailabl e Encounter Details Date Type Department Care Team (Late st Contact Info) Description 11/29/2023 Scanned Document [facility] [employer] [facility] [employer] [address] [facility] [address] [place] [id number] Marisela Bautista, MARJORIE [address] [place] [phone] Social History Tobacco Use Types Packs/Day Years [...]
--- OUTSIDE RECORDS SUMMARY | 2025-01-17 12:02 | XMS_ITS | Encounter Summary ---
Author Organization [facility] Address [address] [place] [address] Care Team Providers Care Fire Extinguisher Sprinkler Inspector Name Role Phone Cristo Spring MD Primary Care Provider [phone] Reason for Visit * Reason Onset Date Comments Medical Records 01/12/2025 Encounter Details Date Type Department Care Team (Late st Contact Info) Description 01/12/2025 Telephone [facility] [address] [place] [address] Dr [address] [place] [address] Ari Patricio MD [address] [place] [address] [address] [place] [address] Medical Records Social History Tobacco Use Types [...] Medical Records Request Caller: [facility] Calling from: [facility] Requesting provider's first & last name: Direct Phone Number or Ext: [phone] What records are being requested: Office visit notes with Dr. Patricio, for clearance How far back: 11/24/24 What is it for: Lumbar Decompression Needed by: ADRIEN documented in this encounter Plan of Treatment Not on file documented as of this encounter Visit Diagnoses Not on filedocumented in this encounter Care Teams Fire Extinguisher Sprinkler Inspector Relationship Specialty Start Date End Date Cristo Spring MD [address] PCP - General Semiconductor Dies Loader 03/08/18 documented as of this encounter
--- OUTSIDE RECORDS SUMMARY | 2025-01-17 12:02 | XMS_ITS | Patient Health Record ---
Author Organization [facility] Address [address] [facility] [address] [place] [address] Care Team Providers Care Typing Office Worker Name Role Phone Budindira Cristo Primary Care [...] & 10 x 100MG as directed Orally [facility] traMADol HCl 50 MG 1 tablet as needed Orally Once a day Active Zolpidem Tartrate 5 MG 1 tablet at bedti pa as needed Orally Once a day Active [...] Coverage End Date [employer] Medicare [address] [place] [address] [id number] Leroy Badillo i Self - patient is [...] 2021 and 2022 COVID vaccinated X 3 ([employer]) Surgical History Surgery Date(Month/Year) right ankle ORIF Hospitalization History Reason Date(Month/Year) right ankle surgery
--- OUTSIDE RECORDS SUMMARY | 2025-01-17 12:02 | XMS_ITS | Encounter Summary ---
Author Organization [facility] Address [address] [address] Phone Care Team Providers Care Production Administrator Name Role Phone Cristo Spring MD Primary Care Provider [phone] Encounter Details Date Type Department Care Team (Late Contact Info) Description 01/11/2025 Orders Only [facility] [address] [place] [address] Alonso Vance MD [address] [address] Social History Tobacco Use Types [...] Office Visit [facility] [address] [address] Alonso Vance MD [address] [address] documented as of this encounter Procedures Procedure [...] PTH 69(H) 15 - 65 pg/mL [facility] 01/11/2025 10:5 0 AM EST 01/11/2025 Alonso Vance MD LAB BLOOD ORDERABLES Final Re sult [facility] [address] [place] [address] * Magnesium (01/11/2025 10:50 AM EST) Magnesium 1.8 1.6 - 2.3 mg/dL [facility] 01/11/2025 10:5 0 AM EST 01/11/2025 us Alonso Vance MD LAB BLOOD ORDERABLES Final Re sult Performing Organization Address City/[facility]/ZIP Co de Phone Number [facility] [address] [place] [address] * Phosphorus (01/11/2025 10:50 AM EST) Phosphorus 2.8 2.8 - 4.1 mg/dL [facility] 01/11/2025 10:5 0 AM EST 01/11/2025 Alonso Vance MD LAB BLOOD ORDERABLES Final Re sult Performing Organization Address [facility] Co de Phone Number [facility] [address] [place] [address] * Uric Acid (01/11/2025 10:50 AM EST) Uric Acid 7.9 3.8 - 8.4 mg/dL [facility] Comment:Therapeutic target f or gout patients: <6.0 01/11/2025 10:5 0 AM EST 01/11/2025 Alonso Vance MD LAB BLOOD ORDERABLES Final Re sult Performing Organization Address [facility]/ZIP Co de Phone Number [facility] [address] [place] [address] * Vitamin D 25 Hydroxy (01/11/2025 10:50 AM EST) Vitamin D, 25-OH, Total 30.8 30.0 - 100.0 ng/mL [facility] Comment: Vitamin D deficiency has been defined by the [place] of [employer] and an Endocrine Society practice guideline as a level of serum 25-OH vitamin D less than 20 ng/mL (1,2). The Endocrine Society went on to further define vitamin D insufficiency as a level between 21 and 29 ng/mL (2). 1. IOM ([place] of [employer]). 2010. Dietary reference ?? intakes for calcium and D. [place]: The ?? National Academies Press. 2. Stef MF, Valdo CAZARES, Michelle UNDERWOOD, et al. ?? Evaluation, treatment, and prevention of vitamin D ?? deficiency: an Endocrine Society clinical practice ?? guideline. JCEM. 2010; 96(7):1911-30. 01/11/2025 10:5 0 AM EST 01/11/2025 Alonso Vance MD LAB BLOOD ORDERABLES Final Re sult Performing Organization Address [facility] Co de Phone Number [facility] [address] [place] [address] * Protein, Total, Random Urine w/Creatinine (Protein/Creat Ratio) (01/11/2025 10:50 AM EST) Creatinine, Ur 180.0 Not Estab. mg/dL [facility] Protein, Ur 26.5 Not Estab. mg/dL [facility] Urine Protein/Creatin ine Ratio 147 0 - 200 mg/g creat [facility] 01/11/2025 10:5 0 AM EST 01/11/2025 Alonso Vance MD LAB URINE ORDERABLES Final Re sult Performing Organization Address City[facility]/ZIP Co de Phone Number [facility] [address] [place] [address] * Microscopic Examination (01/11/2025 10:50 AM EST) WBC, Urine None seen 0 - 5 /hpf [facility] RBC, Urine 0-2 0 - 2 /hpf [facility] Squamous Epithelial, Urine None seen 0 - 10 /hpf [facility] Casts None seen None seen /lpf [facility] Bacteria, Urine None seen None seen/Few [facility] 01/11/2025 10:5 0 AM EST 01/11/2025 us Alonso Vance MD LAB MICROBIOLOGY - GENERAL OR DERABLES Final Result [facility] [address] [place] [address] * (ABNORMAL) Urinalysis with microscopic (01/11/2025 10:50 AM EST) Specific [place], Urine 1.021 1.005 - 1.030 [facility] pH Urine 6.5 5.0 - 7.5 [facility] Color, Urine Yellow Yellow [facility] Appearance Urine Clear Clear [facility] [phone] WBC Esterase Urine Negative Negative [facility] [phone] Protein, Ur 1+(A) Negative/Tra ce [facility] Glucose, Ur Negative Negative [facility] [phone] Ketones, Urine Negative Negative [facility] Blood Urine Negative Negative [facility] Bilirubin Urine Negative Negative [facility] Urobilinogen Urine 1.0 0.2 - 1.0 mg/dL [facility] Nitrite, Urine Negative Negative [facility] Microscopic Examination See below: [facility] Comment:Microscopic was donnie cated and was performed. 01/11/2025 10:5 0 AM EST 01/11/2025 us Alonso Vance MD LAB URINE ORDERABLES Final Re sult [facility] [address] [place] [address] * (ABNORMAL) Comprehensive Metabolic Panel (01/11/2025 10:50 AM EST) Glucose 130(H) 70 - 99 mg/dL [facility] BUN 24 8 - 27 mg/dL [facility] Creatinine 1.30(H) 0.76 - 1.27 mg/dL [facility] eGFR CKD-EPI CR 2020 56(L) >59 mL/min/1.7 3 [facility] BUN/Creatinine Ratio 18 10 - 24 [facility] Sodium 146(H) 134 - 144 mmol/L [facility] Potassium 4.4 3.5 - 5.2 mmol/L [facility] Chloride 106 96 - 106 mmol/L [facility] Bicarbonate (CO2) 23 20 - 29 mmol/L [facility] Calcium 9.9 8.6 - 10.2 mg/dL [facility] Total Protein 6.8 6.0 - 8.5 g/dL [facility] Albumin 4.2 3.8 - 4.8 g/dL [facility] Globulin 2.6 1.5 - 4.5 g/dL [facility] Total Bilirubin 0.5 0.0 - 1.2 mg/dL [facility] Alkaline Phosphatase 96 44 - 121 IU/L [facility] AST (SGOT) 21 0 - 40 IU/L [facility] ALT (SGPT) 21 0 - 44 IU/L [facility] 01/11/2025 10:5 0 AM EST 01/11/2025 us Alonso Vance MD LAB BLOOD ORDERABLES Final Re sult [facility] [address] [place] [address] * CBC and Differential (01/11/2025 10:50 AM EST) WBC 9.7 3.4 - 10.8 x10E3/uL [facility] RBC 5.08 4.14 - 5.80 x10E6/uL [facility] Hemoglobin 14.0 13.0 - 17.7 g/dL [facility] Hematocrit 42.5 37.5 - 51.0 % [facility] MCV 84 79 - 97 fL [facility] MCH 27.6 26.6 - 33.0 pg [facility] MCHC 32.9 31.5 - 35.7 g/dL [facility] RDW 13.6 11.6 - 15.4 % [facility] Platelets 210 150 - 450 x10E3/uL [facility] Neutrophils Relative 65 Not Estab. % [facility] Lymphocytes Relative 24 Not Estab. % [facility] Monocytes 8 Not Estab. % [facility] Eosinophils Relative 2 Not Estab. % [facility] Basophils Relative 0 Not Estab. % [facility] Neutrophils Absolute 6.4 1.4 - 7.0 x10E3/uL [facility] Lymphocytes Absolute 2.3 0.7 - 3.1 x10E3/uL [facility] Monocytes Absolute 0.8 0.1 - 0.9 x10E3/uL [facility] Eosinophils Absolute 0.2 0.0 - 0.4 x10E3/uL [facility] Basophils Absolute 0.0 0.0 - 0.2 x10E3/uL [facility] Immature Granulocytes 1 Not Estab. % [facility] Immature Grans (Absolute) 0.1 0.0 - 0.1 x10E3/uL [facility] 01/11/2025 10:5 0 AM EST 01/11/2025 us Alonso Vance MD LAB BLOOD ORDERABLES Final Re sult [facility] [address] [place] [address] documented in this encounter Visit Diagnoses Not on filedocumented in this encounter Care Teams Production Administrator Relationship Specialty Start Date End Date Cristo Spring MD [address] [place], [place] PCP - General Internal Medicine 09/14/22 documented as of this encounter
--- OUTSIDE RECORDS SUMMARY | 2025-01-17 12:02 | XMS_ITS ---
Author Organization [facility] Address [address] [place] [address] Care Team Providers Care Roll Skinner Name Role Phone Cristo Spring Primary Care Provider TAMIKO Pena Unavailable [phone] Allergies No Known Allergies REASON FOR VISIT bilateral foot pain Medications Medication SIG (Take, Route, Frequency, Duration) Notes Start Date End Date Status Lisinopril 40 MG 1 tablet Orally Once a day Active Metoprolol Succinate ER 100 MG 1 tablet Orally Once a day Active Paxlovid (150/100) 10 x 150 MG & 10 x 100MG as directed Orally [facility]- shell traMADol HCl 50 MG 1 tablet as needed Orally Once a day Active Zolpidem Tartrate 5 MG 1 tablet at bedti la as needed Orally Once a day Active [...] 08/17/2023 Encounters Encounter Location Date Provider Diagnosis [facility] [address] [place] [address] 08/17/2023 TAMIKO PICHARDO Right foot pain M79. [...] * Leroy ANAYA PDOB:04/1945 (77 yo M)Acc No.[id number]:08/17/2023 Progress Notes Patient:?Leroy Anaya P Provider:?Tamiko Marc DPM :1945???Age:77 Y???Sex:Male Rishabh e:08/17/2023 Address:[address], [id number] Pcp:Cristo Spring Subjective: * Chief Complaints: * [...] radio opaque foreign bodies. ? * Procedure Codes:?66276 X-RAY EXAM OF FOOT 3 Views, Modifiers: RT 34721 X-RAY EXAM OF FOOT 3 Views, Modifiers: LT * Billing Information: * Visit Code:? 43051 Office Visit, New Pt., Level 3. * Procedure Codes:? 52276 X-RAY EXAM OF FOOT 3 Views. Modifiers: RT 66374 X-RAY EXAM OF FOOT 3 Views. Modifiers: LT * Sign off status: Completed true * Provider:Fani Marc DPM Date:?08/17 Generated for Jeanine sharif/[place]/eTransmitting on:?01/17/2025 12:02 PM EST History and Physical Notes * Examination [...]
--- OUTSIDE RECORDS SUMMARY | 2025-01-17 12:03 | XMS_ITS | Clinical Summary ---
Author Organization [facility] Address [address] [place] [address] Phone Care Team Providers Care Down Filler Name Role Phone Cristo Spring MD Primary Care Provider [phone] Allergies No known active allergies Medications hydroCHLOROthiaz [...] at bedtime. 01/17/20 20 Active fish,bora,flax oils-om3,6,9no1 ([place] 3-6-9) 1,200 mg capsule Take 1,200 mg [...] Type Department Care Team Description 01/12/2025 Telephone [facility] [address] [place] [address] Ari Patricio MD Medical Records 11/24/2024 8:50 AM EST Office Visit [facility] [address] [place] [address] Ari Patricio MD Coronary artery disease, unspecified vessel or lesion type, unspecified whether angina present, unspecified whether [place] or transplanted heart (Primary Dx); Palpitations from [...] type, unspecified whether angina present, unspecified whether [place] or transplanted heart from Last 3 Months Results * ECG 12 lead (11/24/2024 8:51 AM EST) Ventricular Rate ECG 70 BPM GEMUSE Atrial Rate 70 BPM GEMUSE P-R Interval 162 ms GEMUSE QRS Duration 78 ms GEMUSE Q-T Interval 380 ms GEMUSE QTc 410 ms GEMUSE P Wave [place] 45 degrees GEMUSE R [place] 31 degrees GEMUSE T [place] -6 degrees GEMUSE ECG Interpretation Sinus rhythm with Premature supraventricular complexes Inferior infarct , age undetermined Abnormal ECG No previous ECGs available Confirmed by Jacques PATRICIO JAMES ([id number]) on 11/24/2024 1:19:31 PM GEMUSE 11/24/2024 8:51 AM EST 11/24/2024 1:19 PM EST us Ari Patricio MD ECG ORDERABLES Final Result GEMUSE from Last 3 Months Insurance [employer] MED[employer]ARE [employer]VANTAGE Care Teams Down Filler Relationship Specialty Start Date End Date Cristo Spring MD [address] PCP - General Core Feeder 03/08/18
[2025-01-23 10:38] VITALS: BMI 36.0
[2025-01-30] VITALS (9 sets, daily range): BP systolic 104–141; BP diastolic 54–74; PULSE 71–80; RESP 18–20; TEMP 36.1–36.6; O2SAT 92–95; BMI 34.5
--- NOTE | ~2025-01-30 | FL_ITS ---
EXAMINATION: FL GUIDANCE ONLY HISTORY: L3-4, L4-5 Decompression COMPARISON: None available. TECHNIQUE: Fluoroscopy time: 3.2 seconds. Cumulative Dose: 3.7950 mGy. DAP: 1.4357 mGym2 Images: 1. FINDINGS: A single fluoroscopic spot film of the lumbar spine in the lateral projection demonstrates a probe directed toward the L4-5 intervertebral disc space from a posterior approach. FL/FL guidance in OR IMPRESSION: Fluoroscopy during procedure. Please see procedure report for additional information. Electronically signed by: Wan Gardner MD 01/31/2025 07:06 AM EDT
[2025-01-30] MEDS: Gabapentin 300 MG CAPSULE PO (11:17)
[2025-01-30] MEDS: methocarbamoL 750 MG TABLET PO (11:17)
--- NOTE | 2025-01-30 12:32 | MHC.SHP ---
Pre-Procedural Eval Section A - 24 Hr Update-Section A only Date of Service: 01/30/25 The patient is an INPATIENT: No Section B - Complete if H&P > 30 days Chief Complaint: Spinal stenosis, lumbar region with neurogenic Details of Present Illness: Neurogenic claudication Allergies: Allergies Allergy/AdvReac Type Severity Reaction Status Date / Time No Known Allergies Allergy Verified 01/30/25 10:59 Review of Systems Sugical H&P ROS: Negative: Constitution, Cardiovascular, Respiratory, Neurological, Psychiatric, Hem-Onc, Allergic/Immunologic, Gastrointestinal, Genitourinary, Musculoskeletal, Integumentary, Endocrine and Eyes/Ears/Nose/Throat Exam Surgical H&P Exam: Normal: HEENT, Normal: Heart, Normal: Lungs, Normal: Extremities, Normal: Abdomen, Normal: Skin and Normal: Neurological (Awake, alert) Plan Diagnosis/Plan: Unchanged I have reviewed the history and physical and performed a pertinent physical examination on my patient. No changes have occurred unless specified. L3-4, L4-5 decompression Time Spent With Patient Time: Total time managing care of this patient today __5__ minutes.
--- NOTE | 2025-01-30 12:41 | P.DS_ITS ---
DS: Providers Provider Date of Service: 01/30/25 Date of discharge: 01/30/25 Primary care physician: Cristo Spring MD Admitting clinician: Mason Young DS: Diagnosis Discharge Diagnosis (1) Lumbar stenosis with neurogenic claudication: Status: Acute DS: Summary Time Attestation Discharge Coordination Time (in mins): 6 Quality: Safe Use of Opioids Does Pt have an Active Cancer Diagnosis on the Problem List?: No Quality: Stroke Does the patient have a stroke diagnosis?: No Physical Exam Vital Signs: Vital Signs: Last Vital Signs Temp 97.9 F 01/30/25 11:00 Pulse 75 01/30/25 11:00 Resp 18 01/30/25 11:00 BP 141/74 H 01/30/25 11:00 Pulse Ox 92 01/30/25 11:00 O2 Del Method Room Air 01/30/25 11:00 BMI result Body Mass Index 34.5 Discharge Plan Discharge Patient Disposition: Home, Self-Care Referrals: Cristo Spring MD [Primary Care Provider] - 1 Week Discharge Medications: New docusate sodium [Colace] 100 mg capsule 100 mg PO BID Qty: 20 0RF oxycodone 5 mg tablet 5 mg PO Q4H PRN (Reason: pain) Qty: 30 0RF Rx Instructions: Partial Fill upon patient request. Continued atorvastatin 80 mg tablet 80 mg PO DAILY metoprolol succinate 50 mg tablet extended release 24 hr 25 mg PO DAILY amlodipine 5 mg tablet 5 mg PO DAILY esomeprazole magnesium 40 mg capsule,delayed release(DR/EC) 40 mg PO DAILY hydrochlorothiazide 25 mg tablet 25 mg PO DAILY zolpidem 5 mg tablet 5 mg PO BEDTIME lisinopril 40 mg tablet 40 mg PO DAILY fluticasone propionate [Flonase Allergy Relief] 50 mcg/actuation [place],Suspension 1 spray INTRANASAL DAILY Rx Instructions: administer into each nostril Zyrtec 10 mg Capsule 10 mg PO DAILY PRN (Reason: Allergy Symptoms) Held aspirin 81 mg tablet,delayed release (DR/EC) 81 mg PO DAILY Hold Instructions: Resume on 02/06/25. You may resume aspirin 1 week after surgery Discharge Orders: Discharge Order (Routine); Ordered 01/30/25 Ordered By: Abelardo Boo Diet: Advance to usual diet Activity on Discharge: As tolerated Activity Restrictions/Additional Instructions: After your spinal surgery we ask you to observe the following restrictions/guidelines: Activity: It is normal to feel some discomfort as you increase your activity, but that will improve with time. We ask you avoid heavy lifting or acitivities that cause pain. As a general rule, 8lbs is a safe limit for lifting right after surgery. Walk as much as you feel comfortable but not to exhaustion. You will feel extra tired the first few days after surgery. Stay well hydrated. It is OK to walk up and down stairs You may return to driving when you are off narcotics (such as vicodin, oxycodone, dilaudid, etc), and you are back to normal functional capacity. If you have any concerns please check with office before driving. Return to work is specific to each patient and each surgery, so please speak with your doctor/PA at first follow up. Please bring paperwork such as FMLA at that time if you need it filled out. Medications: you may resume your aspirin 1 week after surgery For optimum pain control, it is best to start with a combination of 500 mg of Tylenol every 4 hours with 600 mg of Motrin every 8 hours, and use narcotics as needed in between for breakthrough pain. We will give you a short supply of narcotics after surgery (usually one weeks worth). If you need more please call the office but do not use more than prescribed. You will need to give our office 48 hours notice if you need narcotics refilled and we do not fill narcotics on weekends or evenings. If you are on a narcotic, it is a good idea to take a stool softener such as colace or senna to avoid constipation If you take blood thinner such as aspirin, Plavix, Coumadin, Effient, Eliquis etc for conditions such as Afib, DVT, Pulmonary embolus, coronary disease, stents etc please speak with your surgeon about specific details as to when you can resume these medications. You can resume NSAIDs on post op day 1 (eg: Motrin, Naproxen, etc). Follow up: Please call the office, , after surgery to arrange a 3 week follow up for wound check. Wound Care: You may remove your dressing on the first day after surgery. You may leave open to air. Please do not remove the steri strips underneath. they will fall off on their own in one week. IT IS NORMAL FOR THE WOUND TO OOZE OR BE BLOODY FOR A FEW DAYS AFTER SURGERY. IF THIS HAPPENS JUST PLACE NEW DRESSING OVER IT TO AVOID STAINING CLOTHES. You may shower on post op day # 1 We ask that you do not let the water soak the wound. If it does get wet, just towel dry lightly. Please do not scrub your incision or place any type of chemical/ointment on the wound. No tub baths, pools or jacuzzis for one month. If you have any leaking or redness from your wound, or fevers, please call office Print Language: Mohawk
--- NOTE | 2025-01-30 12:58 | HO.ANESPROP2 ---
HPI - Anesthesia Eval Consult details Narrative: 79 yo M presenting for L3-4 and L4-5 laminectomy lumbar decompression. [facility] Active Problems Active Problems: All Active Problems Lumbar stenosis with neurogenic claudication (Acute) Past Medical History Medical History (Updated 01/23/25 @ 11:03 by Nazia Yao, KWAME) Impotence Renal cysts, acquired, bilateral Hyperglycemia Hyperparathyroidism Cervicalgia CAD S/P percutaneous coronary angioplasty Benign hypertension with chronic kidney disease, stage III Atherosclerosis of abdominal aorta Arteriosclerotic heart disease (ASHD) History of fracture of right ankle Back pain Snores Insomnia GERD (gastroesophageal reflux disease) DDD (degenerative disc disease), lumbar Spinal stenosis Hx of myocardial infarction Palpitations CKD (chronic kidney disease), stage III HLD (hyperlipidemia) HTN (hypertension) Family History Family history of problems with anesthesia: No Surgical History Surgical History (Updated 01/23/25 @ 10:47 by Nazia Yao RN) Hx of cardiac catheterization History of surgery (~2017) Hx of colonoscopy Hx of bilateral cataract extraction H/O heart artery stent History of Problems with Anesthesia: No Social History Social History (Updated 01/23/25 @ 10:43 by Nazia Yao RN) Household Members: Spouse Housing: House Are you a primary residential caregiver to a significant other at home: No Do you presently have visiting nurse or other home services: No Patient Tobacco Use Status: Former Tobacco user Tobacco use type: Cigarette Use of substances other than those prescribed or required for medical reasons: No Have you been hit, kicked, punched, or otherwise hurt by someone within the past year? If so, by whom?: No Are you DNR?: No Advance Directives: No Advance Directives Information Provided: Yes Advance Directives on File: No Healthcare Proxy: No Recently lost weight without trying: No Poor oral hygiene: No Meds Allergies Allergy/AdvReac Type Severity Reaction Status Date / Time No Known Allergies Allergy Verified 01/30/25 10:59 Home Medications ?Medication ?Instructions ?Recorded ?Confirmed ?Last Taken ?Type amlodipine 5 mg tablet 5 mg PO DAILY 01/22/25 01/30/25 01/30/25 History aspirin 81 mg tablet,delayed 81 mg PO DAILY 01/22/25 01/30/25 01/24/25 History release atorvastatin 80 mg tablet 80 mg PO DAILY 01/22/25 01/30/25 Unknown History esomeprazole magnesium 40 mg 40 mg PO DAILY 01/22/25 01/30/25 Unknown History capsule,delayed release hydrochlorothiazide 25 mg tablet 25 mg PO DAILY 01/22/25 01/30/25 Unknown History lisinopril 40 mg tablet 40 mg PO DAILY 01/22/25 01/30/25 Unknown History metoprolol succinate 50 mg 25 mg PO DAILY 01/22/25 01/30/25 01/30/25 History tablet,extended release 24 hr zolpidem 5 mg tablet 5 mg PO BEDTIME 01/22/25 01/30/25 Unknown History cetirizine 10 mg capsule (Zyrtec) 10 mg PO DAILY PRN Allergy Symptoms 01/23/25 01/30/25 01/30/25 History fluticasone propionate 50 1 spray intranasal DAILY 01/23/25 01/30/25 Unknown History mcg/actuation nasal spray,suspension (Flonase Allergy Relief) Exam Exam Date and Time: Height 5 ft 7 in Weight 100 kg Vital Signs Temperature 97.9 F 01/30/25 11:00 Pulse Rate 75 01/30/25 11:00 Respiratory Rate 18 01/30/25 11:00 Blood Pressure 141/74 H 01/30/25 11:00 Pulse Oximetry 92 01/30/25 11:00 Oxygen Delivery Method Room Air 01/30/25 11:00 Temperature 97.9 F 01/30/25 11:00 Pulse Rate 75 01/30/25 11:00 Respiratory Rate 18 01/30/25 11:00 Blood Pressure 141/74 H 01/30/25 11:00 Pulse Oximetry 92 01/30/25 11:00 Oxygen Delivery Method Room Air 01/30/25 11:00 Height,Weight and Vital Signs: Height 5 ft 7 in Weight 100 kg Last Vital Signs Temp 97.9 F 01/30/25 11:00 Pulse 75 01/30/25 11:00 Resp 18 01/30/25 11:00 BP 141/74 H 01/30/25 11:00 Pulse Ox 92 01/30/25 11:00 O2 Del Method Room Air 01/30/25 11:00 Airway Mallampati Class: III TM Dist: >3cm (full beltran and mustache) Neck ROM: Limited Loose/Missing/Broken Teeth: No (patient denies any loose or broken teeth) Heart: S1S2 Lungs: Diminished bilaterally Assessment and Plan Assessment Anesthesia Assessment: Anesthesia Plan Discussed and Chart Reviewed Final Anesthetic Review Family History of Problems with Anesthesia: No History of Problems with Anesthesia: No NPO: Yes ASA Class: III Final Preanesthetic Review: No Changes in Pt Med Stat, Meds/Allgs Chart Reviewed, Consent Obtained/Reviewed and Anes Risks/Benef Reviewed Patient Risk: Intermediate Procedure Risk: Intermediate Anesthetic Plan Anesthetic Plan: GA and Agree w/ Assess. and Plan Disposition: Standard PACU
--- NOTE | 2025-01-30 15:04 | W.PM.OPN ---
Operative Note Operative Note Date of Service: 01/30/25 Narrative: Preoperative Diagnosis: L3-4, L4-5 spinal stenosis/lateral recess stenosis/neural foraminal stenosis Operation: L3-4, L4-5 Laminotomy, Partial facetectomy and foraminotomy with use of microscope Consent Informed Consent was obtained for this operation. I have explained the nature, purpose and benefits of the operation. I have discussed the risks and benefit of the operation including possible complications or adverse events with patient/family. Alternative(s) were discussed with the patient with their relative benefits and risks as well as the consequences of not accepting the operation were included in obtaining consent. Surgeon: PETER STOKES MD, PHD Procedure Assisted By: Abelardo Garrido Description of Procedure This 79-year-old male suffering from neurogenic claudication. MRI shows severe spinal stenosis at L3-4 and moderate stenosis at L4-5. He also has a disc herniation L2-3 on the right side but is clinical symptoms do not fit the L2-3 dermatome. He also has an L3-4 spondylolisthesis.. The patient was offered a decompression and is aware that if the L3-4 spondylolisthesis increases that he will require a fusion. The procedure complications were explained. The patient was consented. The patient was brought to the operating room and endotracheally intubated. The patient was turned in prone position on the Kemal frame. Prep and drape was done followed by timeout. The Physician marketing administrative assistant provided access. A mid lumbar incision was made followed by release of the paravertebral muscle on the left side to expose the L3-L5 laminae and facet joints. An intraoperative x-ray was obtained to confirm the correct level. The microscope was brought in. I took over the procedure. The high-speed drill was used to do a left L3-4 laminotomy until flavum ligament was reached. A #2 Kerrison was used to expand the laminotomy near flush to the pedicles and to include a partial facetectomy. The flavum ligament was opened and resected with a #3 Kerrison to decompress the underlying thecal sac. The flavum ligament was removed to decompress the lateral recess and the exiting L4 nerve roots on the left side. There was severe compression at this level caused by hypertrophic flavum ligament. The patient was turned contralaterally. The spinous process was undercut to expand the decompression towards the contralateral side. The thecal sac deployed to its anatomical configuration as a sign of good decompression. Then attention was turned to the L4-5 level. At L4-5 laminotomy was done, including a partial facetectomy. The flavum ligament was resected to expose the underlying thecal sac and exiting L5 nerve root. He has structures were further decompressed by removing more flavum ligament. Again the patient was started contralaterally in the spinous process was undercut to expand the decompression towards the contralateral side. A long nerve hook could be easily passed along the medial side of the pedicles as a sign of adequate decompression at both levels. The outer layer of the dura was partially violated at the L3-4 level and a piece of DuraGen was left behind preventively. The microscope was removed. Hemostasis was done. The physician marketing administrative assistant close the Incision in 2 layers. Steri-Strips were used to approximate incision. An OpSite with Tegaderm was used to cover the incision. All sponge needle counts were correct. Patient was extubated and transported in stable is to recovery room. Anesthesia: General Estimated Blood Loss (ml): 25 Complications: None Duration of Surgery: 1 hour 45 minutes Postoperative Plan: Discharge to home
== END 2025-01-30 17:23 | disposition home or self-care (01) ==
PROVIDERS: PCP Internal Medicine; Visit Provider Neurological Surgery
PROC: (CPT 63047; principal; 2025-01-30 12:00)
DX: M48.062 Spinal stenosis, lumbar region with neurogenic claudication (principal); M51.26 Other intervertebral disc displacement, lumbar region; M43.16 Spondylolisthesis, lumbar region; M79.605 Pain in left leg; M79.604 Pain in right leg; R53.1 Weakness; R26.2 Difficulty in walking, not elsewhere classified; I12.9 Hypertensive chronic kidney disease with stage 1 through stage 4 chronic kidney disease, or unspecified chronic kidney disease; N18.30 Chronic kidney disease, stage 3 unspecified; I25.2 Old myocardial infarction; I25.10 Atherosclerotic heart disease of native coronary artery without angina pectoris; R73.9 Hyperglycemia, unspecified; Z95.5 Presence of coronary angioplasty implant and graft; K21.9 Gastro-esophageal reflux disease without esophagitis; Z79.899 Other long term (current) drug therapy; Z79.82 Long term (current) use of aspirin; Z87.891 Personal history of nicotine dependence
CPT/HCPCS: 63047; 63048; C1763; J0131; J0330; J0690; J1100; J2003; J2371; J2405; J2704; J3010

== ENCOUNTER → 2025-01-30 09:27 | Outpatient (BNV) | payer MEDICARE, SELFPAY | PROVIDERS: PCP Internal Medicine; Visit Provider Neurological Surgery | DX: M48.062 Spinal stenosis, lumbar region with neurogenic claudication (principal) | CPT/HCPCS: 63047; 63048; 99499 ==

== ENCOUNTER 2025-02-03 12:25 | Emergency (ER) | payer MEDICARE, SELFPAY ==
--- NOTE | ~2025-02-03 | XR_ITS ---
CLINICAL HISTORY: fall, distal metatarsal pain 3 view left foot Comparison: None Findings: Minimally displaced obliquely oriented left 5th metatarsal diaphyseal fracture. No ankle effusion. No radiopaque foreign body. IMPRESSION: Minimally displaced obliquely oriented left 5th metatarsal diaphyseal fracture. This document has been electronically signed by: Jason Hines MD on 02/03/2025 13:08:46
--- NOTE | 2025-02-03 12:28 | ED_ITS ---
HPI - Extremity Injury (Lower) General Chief Complaint: Extremity Injury, Lower Stated Complaint: LT foot injury Time Seen by Provider: 02/03/25 12:47 Source: patient and family (patient's ) Mode of arrival: wheelchair Limitations: no limitations History of Present Illness ED Provider: Bee Dunn PA-C HPI Narrative: Patient is a 79 year old assigned male at with a history of recent back surgery, CAD, HTN, and CKD stage 3 presenting to the emergency department today with left foot pain. Patient states that he stood up and his left knee buckled and he inverted his left foot. Patient denies any dizziness, lightheadedness, abdominal pain, nausea, vomiting, fever, chills, blurry vision, double vision, loss of vision, chest pain, difficulty breathing, shortness of breath, back pain, night sweats, pain with urination, increased urinary frequency, increased urinary urgency, blood in his urine or stool, syncope or a near syncopal episode, bowel incontinence, bladder incontinence, or any other complaints at this time. Related Data Home Medications ?Medication ?Instructions ?Recorded ?Confirmed amlodipine 5 mg tablet 5 mg PO DAILY 01/22/25 01/30/25 aspirin 81 mg tablet,delayed 81 mg PO DAILY 01/22/25 01/30/25 release atorvastatin 80 mg tablet 80 mg PO DAILY 01/22/25 01/30/25 esomeprazole magnesium 40 mg 40 mg PO DAILY 01/22/25 01/30/25 capsule,delayed release hydrochlorothiazide 25 mg tablet 25 mg PO DAILY 01/22/25 01/30/25 lisinopril 40 mg tablet 40 mg PO DAILY 01/22/25 01/30/25 metoprolol succinate 50 mg 25 mg PO DAILY 01/22/25 01/30/25 tablet,extended release 24 hr zolpidem 5 mg tablet 5 mg PO BEDTIME 01/22/25 01/30/25 cetirizine 10 mg capsule (Zyrtec) 10 mg PO DAILY PRN Allergy Symptoms 01/23/25 01/30/25 fluticasone propionate 50 1 spray intranasal DAILY 01/23/25 01/30/25 mcg/actuation nasal spray,suspension (Flonase Allergy Relief) Previous Rx's ?Medication ?Instructions ?Recorded docusate sodium 100 mg capsule 100 mg PO BID #20 caps 01/30/25 (Colace) oxycodone 5 mg tablet 5 mg PO Q4H PRN pain #30 tabs 01/30/25 Allergies Allergy/AdvReac Type Severity Reaction Status Date / Time No Known Allergies Allergy Verified 02/03/25 12:31 Review of Systems Constitutional: Constitutional: Reports no additional constitutional complaints, Denies chills, Denies fever(s) and Denies night sweats Eyes: Eyes: Reports no additional eye complaints, Denies blurry vision, Denies change in vision, Denies diplopia, Denies eye discharge, Denies loss of vision and Denies eye pain ENT: Denies dizziness Cardiovascular: Cardiovascular: Reports no additional cardiovascular complaints, Denies chest pain, Denies lightheadedness, Denies Loss of Consciousness and Denies dyspnea Respiratory: Respiratory: Reports no additional respiratory complaints and Denies dyspnea Gastrointestinal: Gastrointestinal: Reports no additional gastrointestinal c omplaints, Denies abdominal pain, Denies melena, Denies hematochezia, Denies change in bowel habits and Denies change in stool character Genitourinary: Genitourinary: Reports no additional male genitourinary complaints, Denies hematuria, Denies oliguria, Denies difficulty urinating, Denies dysuria, Denies urinary frequency, Denies urinary hesitancy, Denies urinary incontinence and Denies urinary urgency Musculoskeletal: Musculoskeletal: Reports no additional musculoskeletal complaints, Denies numbness and Denies tingling Comments: left foot pain Neurologic: Denies dizziness, Denies loss of vision, Denies numbness and Denies tingling Psychiatric: Psychiatric: Reports no additional psychiatric complaints Endocrine: Endocrine: Reports no additional endocrine complaints Hematologic/Lymphatic: Hematologic/Lymphatic: Reports no additional hematologic/lymphatic complaints Allergic/Immunologic: Allergic/Immunologic: Reports no additional allergic/immunologic complaints PMFSH Past Medical History Attestation statement: The following information was validated with the patient. (patient's validated all information provided by the patient.) Source: old records reviewed, obtained from family (patient's provided additional history and confirmed the history provided by the patient.) and nursing notes reviewed Medical History Impotence Renal cysts, acquired, bilateral Hyperglycemia Hyperparathyroidism Cervicalgia CAD S/P percutaneous coronary angioplasty Benign hypertension with chronic kidney disease, stage III Atherosclerosis of abdominal aorta Arteriosclerotic heart disease (ASHD) History of fracture of right ankle Back pain Snores Insomnia GERD (gastroesophageal reflux disease) DDD (degenerative disc disease), lumbar Spinal stenosis Hx of myocardial infarction Palpitations CKD (chronic kidney disease), stage III HLD (hyperlipidemia) HTN (hypertension) Surgical History Hx of cardiac catheterization History of surgery (~2017) Hx of colonoscopy Hx of bilateral cataract extraction H/O heart artery stent Social History Social History Household Members: Spouse Housing: House Are you a primary inspector health care facilities to a significant other at home: No Do you presently have visiting nurse or other home services: No Patient Tobacco Use Status: Former Tobacco user Tobacco use type: Cigarette Advance Directives: Yes Advance Directives Information Provided: No Advance Directives on File: No Physical Exam Vital Signs: Vital Signs: Last Vital Signs Temp 97.6 F 02/03/25 13:07 Pulse 104 H 02/03/25 13:07 Resp 18 02/03/25 13:07 BP 126/52 L 02/03/25 13:07 Pulse Ox 94 02/03/25 13:07 O2 Del Method Room Air 02/03/25 13:07 BMI result Body Mass Index 35.4 Const: General: cooperative, no acute distress, alert and awake Nutritional Appearance: well nourished Orientation/consciousness: patient oriented x3 Limitations: no limitations HEENT: Head: Yes normal to inspection and Yes atraumatic Ears: hearing grossly normal bilaterally and external ears normal General nose exam: Normal external nose present, no nasal discharge noted and no epistaxis Face and sinus: Yes normal facial exam, No abrasion and No laceration Mouth: Normal oral and palatal mucosa present, no drooling and no muffled voice Eyes: General: appearance normal, both eyes and all related structures Periorbital: periorbital findings normal Eyelids: Yes eyelids normal Conjunctivae: conjunctivae normal Pupils: Equal, round and reactive pupils present EOM: EOMs intact bilaterally Neck: Neck: Yes normal visual inspection, Yes full ROM and Yes no lymphadenopathy Chest: Chest palpation & inspection: normal inspection of the chest Resp: Effort & Inspection: normal respiratory effort and able to speak in complete sentences GI: Inspection: Yes normal to inspection Neuro: General: patient oriented x3, moves all extremities and CN's II-XI inta ct bilaterally Cranial nerves: Yes Equal, round and reactive pupils present Cognition (Neuro): normal cognition Extrem: Other: pain with palpation of the lateral left dorsal foot General: Yes normal to inspection, Yes full ROM and Yes capillary refill normal Psych: Appearance: grossly normal Mental Status: mental status grossly normal Affect: normal affect Attitude: cooperative Thought process: Normal thought process present Thought content: Normal thought content present Insight: Good insight present (Psych) Course Course Course Narrative: This is an RME performed by Damien Melara CNP: Additional HPI, ROS, PE not included below will be deferred to primary provider. patient is a 79-year-old male who presents emergency department for evaluation. Reports 4 days ago he had a fall at home, he had back surgery the day prior, reports that his left leg gave out ultimately resulting in an inversion injury to the left foot. Has been having pain to the distal metatarsal region that is just not improving. Reports the area is bruised, has been walking with a limping gait. Denies numbness or tingling to the extremity. Denies head strike or loss of consciousness during the initial fall. Plan: XR Medical Decision Making Medical Decision Making MDM Narrative: Patient is a 79 year old assigned male at with a history of recent back surgery, CAD, HTN, and CKD stage 3 presenting to the emergency department today with left foot pain. Patient's physical exam was as noted in the physical exam portion of this note. Patient's left foot x-ray showed a minimally displaced obliquely oriented left 5th metatarsal diaphyseal fracture. I explained my physical exam findings as well as all test results to the patient. I answered all questions asked by the patient and the patient's . Patient's left foot was placed in a walking boot, without incident. Patient's PMS was intact prior to and after boot placement. Patient was given crutches with crutch instructions and demonstrated proper use while in the department. I stressed the importance of the patient taking his medication as directed (either prescribed or as the over the counter packaging recommends). I stressed the importance of the patient following up with his primary care provider and orthopedic provider. I stressed the importance of the patient returning to the emergency department immediately if his symptoms were to worsen or if he were to develop any dizziness, shortness of breath, difficulty breathing, chest pain, blurry vision, loss of vision, nausea, vomiting, abdominal pain, fever, chills, back pain, or any other complaints. Patient and the patient's verbalized agreement and understanding with this treatment plan and discharge. Differential Diagnosis Differential Diagnoses: The differential diagnosis associated with the presentation includes Left foot fracture Contusion Admission/Observation Consideration of admission/observation: Escalation of care including admission/observation considered Patient would have been admitted to the hospital had his work up had any findings where hospital admission was appropriate and his clinical presentation warranted hospital admission. Independent Interpretation I performed an independent interpretation of an: Plain X-Ray Interpretation: My interpretation is in agreement with the radiologist's impression of this imaging study. CLINICAL HISTORY: fall, distal metatarsal pain 3 view left foot Comparison: None Findings: Minimally displaced obliquely oriented left 5th metatarsal diaphyseal fracture. No ankle effusion. No radiopaque foreign body. IMPRESSION: Minimally displaced obliquely oriented left 5th metatarsal diaphyseal fracture. This document has been electronically signed by: Jason Hines MD on 02/03/2025 13:08:46 Dictated By: Jason Hines MD Signed By: Electronically signed by Jason Hines MD 02/03/25 0123 Radiology Impression Discussion of test interpretation with radiology: I have reviewed the radiologist's reading. Independent Historian Clinical information obtained from an independent historian. History obtained from or confirmed by: Spouse (patient's provided additional history and confirmed the history provided by the patient. ) Procedures Orthopedic Splinting/Casting Injury #1: Side: left Lower Extremity Injury Location: foot Lower Extremity Immobilizer: boot orthosis Other Orthopedic Equipment: crutches Discharge Plan Discharge Clinical Impression: Foot fracture Patient Disposition: Home, Self-Care Instructions: Crutch Instructions (ED), Foot Fracture in Adults (ED), Walking Boot (ED) Additional Instructions: Do NOT bear weight on the left foot. Follow up with your primary care provider and an orthopedic provider. Return to the emergency department immediately if your symptoms worsen or if you develop any numbness, tingling, dizziness, shortness of breath, difficulty breathing, chest pain, blurry vision, loss of vision, nausea, vomiting, abdominal pain, fever, chills, back pain, or any other complaints. Please see the information below about our Patient Portal. If you are not yet enrolled in the [facility] Patient Portal, you will receive an enrollment email invitation following your visit to any [facility], located within [facility] setting. You may also self-enroll in the Patient Portal by visiting our website: [email or web address] The following information is required to access the Patient Portal: - Your [facility] Medical Record Number - Your personal home email address (must match what is in your electronic medical record, Registration staff can assist with this) - Name - Date of Capabilities of the Patient Portal: - Message some providers - View upcoming appointments - Access your health summary, medical history, and visit history - View current conditions and allergies - View procedure and lab results - View your medications, including guidelines, side effects, and precautions - Complete pre-appointment questionnaires requested by your provider - Ready summary reports of your office visits and procedures To access the Patient Portal Mobile Cam, follow these directions: - Search [employer] in the Cam Store or [employer] Store - Download the Cam - Search for [facility] - Enter your login/password Prescriptions: No Action atorvastatin 80 mg tablet 80 mg PO DAILY metoprolol succinate 50 mg tablet extended release 24 hr 25 mg PO DAILY amlodipine 5 mg tablet 5 mg PO DAILY aspirin 81 mg tablet,delayed release (DR/EC) 81 mg PO DAILY esomeprazole magnesium 40 mg capsule,delayed release(DR/EC) 40 mg PO DAILY hydrochlorothiazide 25 mg tablet 25 mg PO DAILY zolpidem 5 mg tablet 5 mg PO BEDTIME lisinopril 40 mg tablet 40 mg PO DAILY fluticasone propionate [Flonase Allergy Relief] 50 mcg/actuation [place],Suspension 1 spray INTRANASAL DAILY Rx Instructions: administer into each nostril Zyrtec 10 mg Capsule 10 mg PO DAILY PRN (Reason: Allergy Symptoms) docusate sodium [Colace] 100 mg capsule 100 mg PO BID Qty: 20 0RF oxycodone 5 mg tablet 5 mg PO Q4H PRN (Reason: pain) Qty: 30 0RF Rx Instructions: Partial Fill upon patient request. Referrals: [facility] [Provider Group] (Call to establish and follow up with an orthopedic provider.) Cristo Spring MD [Primary Care Provider] - Interventions: ED Discharge Assessment Last Done: 02/03/25 13:07 Discharge Date/Time: 02/03/25 13:08 Print Language: Zambian
[2025-02-03 12:30] VITALS: BP 126/52; PULSE 104; RESP 18; TEMP 36.4; O2SAT 94; BMI 35.4
[2025-02-03 13:07] VITALS: BP 126/52; PULSE 104; RESP 18; TEMP 36.4; O2SAT 94
== END 2025-02-03 13:08 | disposition home or self-care (01) ==
PROVIDERS: Emergency Provider Emergency Medicine; PCP Internal Medicine
DX: S92.352A Displaced fracture of fifth metatarsal bone, left foot, initial encounter for closed fracture (principal); X50.1XXA Overexertion from prolonged static or awkward postures, initial encounter; M79.672 Pain in left foot; Y93.89 Activity, other specified; Y92.019 Unspecified place in single-family (private) house as the place of occurrence of the external cause; Y99.9 Unspecified external cause status
CPT/HCPCS: 73630; 99283; 99284

== ENCOUNTER → 2025-02-03 12:30 | Outpatient (BNV) | payer MEDICARE, SELFPAY | PROVIDERS: Emergency Provider Emergency Medicine; PCP Internal Medicine; Visit Provider Radiology Vascular & Interventional Radiology | DX: M77.42 Metatarsalgia, left foot (principal); W19.XXXA Unspecified fall, initial encounter | CPT/HCPCS: 73630 ==

== ENCOUNTER 2025-02-14 08:48 | Outpatient (REF) | payer MEDICARE, SELFPAY ==
--- NOTE | ~2025-02-14 | XR_ITS ---
EXAMINATION: XR FOOT, LEFT CLINICAL INFORMATION: M79.672 - Pain in left foot COMPARISON: 02/03/2025. TECHNIQUE: AP, lateral, and oblique views of the left foot. FINDINGS: Redemonstration of minimally displaced oblique fracture of the fifth metatarsal, without definite change in alignment or appearance since the prior examination. No gross changes of healing identified. Minimal increased sclerosis of the fracture lines. No bony callus formation. No additional fracture. Mild pes planus. Small plantar calcaneal spur. Mild degenerative arthritis in the first MTP joint. No gross soft tissue abnormality. XR/XR foot LT min 3V IMPRESSION: 1. Stable alignment of oblique fifth metatarsal fracture without gross changes of bony healing evident. Electronically signed by: Santiago Devine MD 02/15/2025 10:02 AM EDT
--- OUTSIDE RECORDS SUMMARY | 2025-02-14 09:24 | XMS_ITS | Clinical Summary ---
Author Organization [facility] Address [address] [place] [address] Care Team Providers Care Ssrs Report Developer Name Role Phone Unavailable Primary Care Provider [...] mg total) by mouth nightly. 08/10/2023 Active [place]-3 Fatty Acids (FISH OIL PO) Take 1 [...]
--- OUTSIDE RECORDS SUMMARY | 2025-02-14 09:24 | XMS_ITS | Encounter Summary ---
Author Organization [facility] Address [address] [place] [address] Care Team Providers Care Newspaper Delivery Counselor Name Role Phone Unavailable Primary Care Provider Unavailabl e Encounter Details Date Type Department Care Team (Late st Contact Info) Description 11/29/2023 Scanned Document [facility] [address] [facility] [facility] [address] [place] [id number] Marisela Bautista, MARJORIE [address] [place] [id number] Social History Tobacco Use Types Packs/Day Years [...]
--- OUTSIDE RECORDS SUMMARY | 2025-02-14 09:24 | XMS_ITS ---
Author Organization [facility] Address [address] [facility] [address] [place] [address] Care Team Providers Care Regional Account Executive Name Role Phone Cristo Spring Primary Care Provider TAMIKO Pena Unavailable [phone] Allergies No Known Allergies REASON FOR VISIT bilateral foot pain Medications Medication SIG (Take, Route, Frequency, Duration) Notes Start Date End Date Status Lisinopril 40 MG 1 tablet Orally Once a day Active Metoprolol Succinate ER 100 MG 1 tablet Orally Once a day Active Paxlovid (150/100) 10 x 150 MG & 10 x 100MG as directed Orally [facility]- [facility] traMADol HCl 50 MG 1 tablet as needed Orally Once a day Active Zolpidem Tartrate 5 MG 1 tablet at bedti de as needed Orally Once a day Active [...] 08/17/2023 Encounters Encounter Location Date Provider Diagnosis [facility] [address] [facility] [address] [place] [address] 08/17/2023 TAMIKO PICHARDO Right foot pain M79. [...] * Leroy ANAYA PDOB:04/1945 (77 yo M)Acc No.[id number]:08/17/2023 Progress Notes Patient:?Leroy Anaya P Provider:?Tamiko Marc DPM :1945???Age:77 Y???Sex:Male Rishabh e:08/17/2023 Address:[place], [id number] Pcp:Cristo Spring Subjective: * Chief Complaints: * [...] radio opaque foreign bodies. ? * Procedure Codes:?91689 X-RAY EXAM OF FOOT 3 Views, Modifiers: [place] [address]40 X-RAY EXAM OF FOOT 3 Views, Modifiers: LT * Billing Information: * Visit Code:? 09782 Office Visit, New Pt., Level 3. * Procedure Codes:? 26854 X-RAY EXAM OF FOOT 3 Views. Modifiers: RT [address]25 X-RAY EXAM OF FOOT 3 Views. Modifiers: LT * Sign off status: Completed true * Provider:?Tamiko Marc DPM Date:?08/17 Generated for Jeanine sharif/[place]/eTransmitting on:?02/14/2025 09:24 AM EDT History and Physical Notes * Examination Category [...]
--- OUTSIDE RECORDS SUMMARY | 2025-02-14 09:24 | XMS_ITS | Clinical Summary ---
Author Organization [facility] Address [address] [facility] [address] [place] [address] Phone Care Team Providers Care Crystal Finisher Name Role Phone Cristo Spring MD Primary Care Provider [phone] Allergies No known active allergies Medications Aspirin 81 MG capsule Take 1 tablet by mouth 1 (one) time each day 8 Active atorvastatin (LIPITOR) 80 MG tablet Take 80 mg by mouth 1 (one) time each day 8 Active colchicine 0.6 MG tablet Take 0.6 mg by mouth 2 (two) times a day if needed 8 Active hydroCHLOROthia zide 25 MG tablet Take 25 mg by mouth 1 (one) time each day 8 Active lisinopril 40 MG tablet Take 40 mg by mouth 1 (one) time each day 8 Active zolpidem (AMBIEN) 10 MG tablet Take 5 mg by mouth every night 8 Active metoprolol succinate XL (TOPROL XL) 50 MG 24 hr tablet Take 50 mg by mouth 1 (one) time each day 8 Active amLODIPine (NORVASC) 2.5 MG tablet Take 2.5 mg by mouth 1 (one) time each day Active esomeprazole (NexIUM) [address] capsule Take 40 mg by mouth 1 (one) time each day Do not open capsule. Active cetirizine (ZyrTEC) 10 MG chewable tablet Chew 10 mg 1 (one) time each day Active fluticasone (FLONASE) 50 MCG/ACT nasal spray Administer 1 spray into each nostril 1 (one) time each day Active Active Problems Problem Noted Date Diagnosed Date Spinal stenosis of lumbar region 01/24/2025 Cyst of kidney 07/27/2023 Hypertension 07/27/2023 Diabetes mellitus, not otherwise specified 07/27 Stage 3b chronic kidney disease 12/15/2022 Coronary arteriosclerosis 01/29/2021 Overview (01/26/2024): Last Assessment & Plan: Patient with a history of atherosclerotic coronary disease. No return to angina. No discomfort. Continue risk factor modification Encounters Date Type Department Care Team Description 01/25/2025 9:20 AM EDT Office Visit [facility] [address] [address] Alonso Vance MD Stage 3b chronic kidney disease (HCC) (Primary Dx); Diabetes mellitus, not otherwise specified (HCC); Cyst of kidney; Coronary arteriosclerosis, not otherwise specified 01/11/2025 Orders Only [facility] [address] [address] Alonso Vance MD from Last 3 Months [...] Sign Reading Time Taken Comments Blood Pressure 173/79 01/25/2025 9:12 AM EDT Pulse 80 01/25/2025 9:12 AM EDT Temperature - - Respiratory Rate - - Oxygen Saturation 95% 01/25/2025 9:12 AM EDT Inhaled Oxygen Concentration - - Weight 99.8 kg (220 lb) 01/25/2025 9:12 AM EDT Height 171.5 cm (5' 7.5 ) 01/25/2025 9:12 AM EDT Body Mass Index 33.95 01/25/2025 9:12 AM EDT Plan of Treatment Upcoming Encounters Date Type Department Care Team (Late st Contact Info) Description 01/24/2026 11:00 AM EDT Office Visit [facility] [address] [facility] [address] [place] [address] Alonso Vance MD [address] [facility] [address] [place] [address] Health Maintenance Due Date Last Done Comments Pneumococcal Vaccine: 65+ Ye ars (2 of 2 - PCV) 12/22/2014 12/22/2013 Diabetes: Hemoglobin A1C 07/27/2023 Diabetes: Ophthalmology Exam 07/27/2023 Diabetes: Pedal Pulse Checked 07/27/2023 Diabetes: Sensory Foot Exam 07/27/2023 Diabetes: Visual Foot Exam 07/27/2023 Influenza Vaccine (Season Ended) 2025 Hepatitis B Vaccine Aged Out No longe [...] None seen 0 - 5 /hpf [facility] RBC, Urine 0-2 0 - 2 /hpf [facility] Squamous Epithelial, Urine None seen 0 - 10 /hpf [facility] Casts None seen None seen /lpf [facility] Bacteria, Urine None seen None seen/Few [facility] 01/11/2025 10:5 0 AM EST 01/11/2025 us Alonso Vance MD LAB MICROBIOLOGY - GENERAL OR DERABLES Final Result Performing Organization Address City/[facility]/ZIP Co de Phone Number [facility] [address] [place] [address] * Protein, Total, Random Urine w/Creatinine (Protein/Creat Ratio) (01/11/2025 10:50 AM EST) Creatinine, Ur 180.0 Not Estab. mg/dL [facility] Protein, Ur 26.5 Not Estab. mg/dL [facility] Urine Protein/Creatin ine Ratio 147 0 - 200 mg/g creat [facility] 01/11/2025 10:5 0 AM EST 01/11/2025 us Alonso Vance MD LAB URINE ORDERABLES Final Re sult [facility] [address] [place] [address] * Vitamin D 25 Hydroxy (01/11/2025 10:50 AM EST) Vitamin D, 25-OH, Total 30.8 30.0 - 100.0 ng/mL [facility] Comment: Vitamin D deficiency has been defined by the [place] of Medicine and an Endocrine Society practice guideline as a level of serum 25-OH vitamin D less than 20 ng/mL (1,2). The Endocrine Society went on to further define vitamin D insufficiency as a level between 21 and 29 ng/mL (2). 1. IOM ([place] of [employer]). 2010. Dietary reference ?? intakes for calcium and D. [place]: The ?? National [place] [employer] Press. 2. Stef MF, Valdo CAZARES, Michelle UNDERWOOD, et al. ?? Evaluation, treatment, and prevention of vitamin D ?? deficiency: an Endocrine Society clinical practice ?? guideline. JCEM. 2010; 96(7):1911-30. 01/11/2025 10:5 0 AM EST 01/11/2025 us Alonso Vance MD LAB BLOOD ORDERABLES Final Re sult [facility] [address] [place] [address] * (ABNORMAL) Urinalysis with microscopic (01/11/2025 10:50 AM EST) Specific [place], Urine 1.021 1.005 - 1.030 [facility] [phone] pH Urine 6.5 5.0 - 7.5 [facility] Color, Urine Yellow Yellow [facility] [phone] Appearance Urine Clear Clear [facility] WBC Esterase Urine Negative Negative [facility] [phone] Protein, Ur 1+(A) Negative/Tra ce [facility] Glucose, Ur Negative Negative [facility] Ketones, Urine Negative Negative [facility] [phone] Blood Urine Negative Negative [facility] Bilirubin Urine Negative Negative [facility] Urobilinogen Urine 1.0 0.2 - 1.0 mg/dL [facility] Nitrite, Urine Negative Negative [facility] Microscopic Examination See below: [facility] Comment:Microscopic was donnie cated and was performed. 01/11/2025 10:5 0 AM EST 01/11/2025 us Alonso Vance MD LAB URINE ORDERABLES Final Re sult [facility] [address] [place] [address] * CBC and Differential (01/11/2025 10:50 AM EST) WBC 9.7 3.4 - 10.8 x10E3/uL [facility] RBC 5.08 4.14 - 5.80 x10E6/uL [facility] Hemoglobin 14.0 13.0 - 17.7 g/dL [facility] Hematocrit 42.5 37.5 - 51.0 % [facility] MCV 84 79 - 97 fL [facility] MCH 27.6 26.6 - 33.0 pg [facility] MCHC 32.9 31.5 - 35.7 g/dL [facility] RDW 13.6 11.6 - 15.4 % [facility] Platelets 210 150 - 450 x10E3/uL [facility] Neutrophils Relative 65 Not Estab. % [facility] Lymphocytes Relative 24 Not Estab. % [facility] Monocytes 8 Not Estab. % [facility] Eosinophils Relative 2 Not Estab. % [facility] Basophils Relative 0 Not Estab. % [facility] Neutrophils Absolute 6.4 1.4 - 7.0 x10E3/uL [facility] Lymphocytes Absolute 2.3 0.7 - 3.1 x10E3/uL [facility] Monocytes Absolute 0.8 0.1 - 0.9 x10E3/uL [facility] Eosinophils Absolute 0.2 0.0 - 0.4 x10E3/uL [facility] Basophils Absolute 0.0 0.0 - 0.2 x10E3/uL [facility] Immature Granulocytes 1 Not Estab. % [facility] Immature Grans (Absolute) 0.1 0.0 - 0.1 x10E3/uL [facility] 01/11/2025 10:5 0 AM EST 01/11/2025 Alonso Vance MD LAB BLOOD ORDERABLES Final Re sult [facility] [address] [place] [address] * Uric Acid (01/11/2025 10:50 AM EST) Pathologist [facility] Uric Acid 7.9 3.8 - 8.4 mg/dL [facility] Comment:Therapeutic target f or gout patients: <6.0 01/11/2025 10:5 0 AM EST 01/11/2025 Alonso Vance MD LAB BLOOD ORDERABLES Final Re sult [facility] [address] [place] [address] * Phosphorus (01/11/2025 10:50 AM EST) Phosphorus 2.8 2.8 - 4.1 mg/dL [facility] 01/11/2025 10:5 0 AM EST 01/11/2025 Alonso Vance MD LAB BLOOD ORDERABLES Final Re sult Performing Organization Address City/[facility]/ZIP Co de Phone Number [facility] [address] [place] [address] * (ABNORMAL) PTH, Intact (01/11/2025 10:50 AM EST) Pathologist [facility] PTH 69(H) 15 - 65 pg/mL [facility] 01/11/2025 10:5 0 AM EST 01/11/2025 us Alonso Vance MD LAB BLOOD ORDERABLES Final Re sult Performing Organization Address [facility]/ZIP Co de Phone Number [facility] [address] [place] [address] * Magnesium (01/11/2025 10:50 AM EST) Pathologist [facility] Magnesium 1.8 1.6 - 2.3 mg/dL [facility] 01/11/2025 10:5 0 AM EST 01/11/2025 us Alonso Vance MD LAB BLOOD ORDERABLES Final Re sult Performing Organization Address [facility] Co de Phone Number [facility] [address] [place] [address] * (ABNORMAL) Comprehensive Metabolic Panel (01/11/2025 10:50 AM EST) Pathologist [facility] Glucose 130(H) 70 - 99 mg/dL [facility] BUN 24 8 - 27 mg/dL [facility] Creatinine 1.30(H) 0.76 - 1.27 mg/dL [facility] eGFR CKD-EPI CR 2020 56(L) >59 mL/min/1.7 3 [facility] BUN/Creatinine Ratio 18 10 - 24 [facility] Sodium 146(H) 134 - 144 mmol/L [facility] Potassium 4.4 3.5 - 5.2 mmol/L [facility] Chloride 106 96 - 106 mmol/L [facility] Bicarbonate (CO2) 23 20 - 29 mmol/L [facility] Calcium 9.9 8.6 - 10.2 mg/dL [facility] Total Protein 6.8 6.0 - 8.5 g/dL [facility] Albumin 4.2 3.8 - 4.8 g/dL [facility] Globulin 2.6 1.5 - 4.5 g/dL [facility] Total Bilirubin 0.5 0.0 - 1.2 mg/dL [facility] Alkaline Phosphatase 96 44 - 121 IU/L [facility] AST (SGOT) 21 0 - 40 IU/L [facility] ALT (SGPT) 21 0 - 44 IU/L [facility] 01/11/2025 10:5 0 AM EST 01/11/2025 us Alonso Vance MD LAB BLOOD ORDERABLES Final Re sult [facility] [address] [place] [address] from Last 3 Months Insurance [employer] [facility] ADV PPO ([id number]) [employer] [facility] ADV PPO ([id number]) Care Teams Crystal Finisher Relationship Specialty Start Date End Date Cristo Spring MD [facility] [address] [place] [address] [address] [place] [address] PCP - General Internal Medicine 09/14/22
--- OUTSIDE RECORDS SUMMARY | 2025-02-14 09:25 | XMS_ITS | Patient Health Record ---
Author Organization [facility] Address [address] [facility] [address] [place] [address] Care Team Providers Care Firefighter Type One Name Role Phone Budindira Cristo Primary Care [...] & 10 x 100MG as directed Orally Not-[facility] traMADol HCl 50 MG 1 tablet as needed Orally Once a day Active Zolpidem Tartrate 5 MG 1 tablet at bedti hi as needed Orally Once a day Active [...] Coverage End Date [employer] Medicare [address] [place] [address] [phone] [id number] Leroy Badillo i Self - patient is [...] 2021 and 2022 COVID vaccinated X 3 ([employer]) Surgical History Surgery Date(Month/Year) right ankle ORIF Hospitalization History Reason Date(Month/Year) right ankle surgery
--- OUTSIDE RECORDS SUMMARY | 2025-02-14 09:25 | XMS_ITS | Clinical Summary ---
Author Organization [facility] [employer] Address [address] [facility] [facility] [place] [address] Phone Care Team Providers Care Cancer Genetics Assistant Name Role Phone Cristo Spring MD Primary Care Provider [phone] Allergies No known active allergies Medications hydroCHLOROthiazi de (HYDRODIURIL) 25 mg tablet Take 1 tablet (25 mg total) by mouth 1 (one) time each day. 90 tablet 1 4 Active lisinopril (PRINIVIL,ZESTRIL ) 40 mg tablet Take 1 tablet (40 mg total) by mouth 1 (one) time each day. 90 tablet 1 4 Active aspirin (ASPIR-81 ORAL) Take 81 mg by mouth daily. 4 Active atorvastatin (LIPITOR) 80 mg tablet TAKE 1 TABLET BY MOUTH EVERY DAY 4 Active colchicine (MITIGARE) 0.6 mg capsule capsule Take by mouth as needed. Active esomeprazole (NexIUM) 40 mg packet Take 40 mg by mouth every morning (before breakfast). Active metoprolol succinate (TOPROL-XL) 25 mg 24 hr tablet Take 1 Tablet by mouth daily. Active zolpidem (AMBIEN) 10 mg tablet Take 1 Tablet by mouth at bedtime. 0 Active fish,bora,flax oils-om3,6,9no1 ([place] 3-6-9) 1,200 mg capsule Take 1,200 mg by mouth daily. 2 Active amLODIPine (NORVASC) 5 mg tabletIndications :Essential (primary) hypertension TAKE 1 TABLET BY MOUTH EVERY DAY 90 tablet 3 5 Active Active Problems Problem Noted Date Diagnosed [...] Type Department Care Team Description 01/12/2025 Telephone [facility] Cardiology [facility] [address] [facility] [address] [place] [address] Ari Patricio MD Medical Records 11/24/2024 8:50 AM EST Office Visit [facility] [address] [facility] [address] [place] [address] Ari Patricio MD Coronary artery disease, unspecified vessel or lesion type, unspecified whether angina present, unspecified whether [place] or transplanted heart (Primary Dx); Palpitations from [...] 2 - PCV) 12/22/2014 12/22/2013 RSV Immunization Adult Patients (1 - 1-dose 75+ series) 2020 Cholesterol [...] type, unspecified whether angina present, unspecified whether [place] or transplanted heart from Last 3 Months Results * ECG 12 lead (11/24/2024 8:51 AM EST) Ventricular Rate ECG 70 BPM GEMUSE Atrial Rate 70 BPM GEMUSE P-R Interval 162 ms GEMUSE QRS Duration 78 ms GEMUSE Q-T Interval 380 ms GEMUSE QTc 410 ms GEMUSE P Wave [place] 45 degrees GEMUSE R [place] 31 degrees GEMUSE T [place] -6 degrees GEMUSE ECG Interpretation Sinus rhythm with Premature supraventricular complexes Inferior infarct , age undetermined Abnormal ECG No previous ECGs available Confirmed by Jacques PATRICIO JAMES ([id number]) on 11/24/2024 1:19:31 PM G[facility] 11/24/2024 8:51 AM EST 11/24/2024 1:19 PM EST us Ari Patricio MD ECG ORDERABLES Final Result [facility] from Last 3 Months Insurance [employer] MEDICARE ADVANTAGE Care Teams Cancer Genetics Assistant Relationship Specialty Start Date End Date Cristo Spring MD [address] [place] PCP - General Adult Basic Studies Teacher 03/08/18
--- OUTSIDE RECORDS SUMMARY | 2025-02-14 09:25 | XMS_ITS | Clinical Summary ---
Author Organization [facility] Address [address] [place] [address] Care Team Providers Care Stacker And Sorter Operator Name Role Phone Cristo Spring MD Primary Care Provider [phone] Allergies No known active allergies Medications Medication [...] every night at bedtime. 5 07/20/2018 Active [place]-3 Fatty Acids (FISH OIL PO) Take 1 [...] Advance Directives For more information, please contact: [phone] Latest Code Status on File Code Status Date Activated Date Inactivated Comments Full Code 08/16/2018 11:55 AM 08/16/2018 6:37 PM This code status was ascertained in the following way: discussion with patient. Care Teams Stacker And Sorter Operator Relationship Specialty Start Date End Date Cristo Spring MD [address] [address] PCP - General Welfare Aide 03/08/18
== END 2025-02-14 08:49 | disposition home or self-care (01) ==
LOC: HO.HOSX 08:48
PROVIDERS: Visit Provider Physician Assistant
DX: M79.672 Pain in left foot (principal); S92.352D Displaced fracture of fifth metatarsal bone, left foot, subsequent encounter for fracture with routine healing
CPT/HCPCS: 73630; 99202

== ENCOUNTER 2025-02-14 14:23 | Outpatient (AMB) | payer MEDICARE, SELFPAY ==
--- NOTE | 2025-02-14 14:47 | MHC.OFFVIS ---
Vital Signs 02/14/25 15:27 Height 5 ft 7 in Weight 226 lb BMI 35.4 BP 110/56 L Blood Pressure Location Lt brachial Position Sitting Intake Visit Reasons: FC- Left foot fracture Intake Note: Leroy is a 79 year old male who presents today for an ER follow up of left foot fracture, DOI 01/31/25. Patient was [facility] at [facility] a couple of day later, states his left knee buckled and left foot inverted landing his whole weight on his foot. He was placed in a walking boot and crutches were given. Currently his pain improves daily. He continues to have pain at the top and lateral side of foot. Denies numbness or tingling. Allergies No Known Allergies Allergy (Verified 02/14/25 14:53) HPI HPI FC- Left foot fracture: Details: 79-year-old gentleman presents to the office today for an injury he sustained to his left foot on 01/31/2025. States he was standing when his left knee buckled and he fell inverting the foot. He had just had spine surgery with Dr. Tejada. He was seen in the emergency department a few days after the incident where x-rays were obtained and he was found to have a 5th metatarsal shaft fracture. He was placed in a boot and referred to our office for ortho eval. [facility] Medical History Impotence Renal cysts, acquired, bilateral Hyperglycemia Hyperparathyroidism Cervicalgia CAD S/P percutaneous coronary angioplasty Benign hypertension with chronic kidney disease, stage III Atherosclerosis of abdominal aorta Arteriosclerotic heart disease (ASHD) History of fracture of right ankle Back pain Snores Insomnia GERD (gastroesophageal reflux disease) DDD (degenerative disc disease), lumbar Spinal stenosis Hx of myocardial infarction Palpitations CKD (chronic kidney disease), stage III HLD (hyperlipidemia) HTN (hypertension) Surgical History Hx of cardiac catheterization History of surgery (~2017) Hx of colonoscopy Hx of bilateral cataract extraction H/O heart artery stent Social History Household Members: Spouse Housing: House Are you a primary manager career to a significant other at home: No Do you presently have visiting nurse or other home services: No Patient Tobacco Use Status: Former Tobacco user Tobacco use type: Cigarette Review of Systems Const All systems reviewed & are unremarkable except as noted in HPI and below Physical Exam Vital Signs: Last Vital Signs BP 110/56 L 02/14/25 15:27 BMI result Body Mass Index 35.4 Const General: cooperative and no acute distress Orientation/consciousness: patient oriented x3 Resp Effort & Inspection: normal respiratory effort and able to speak in complete sentences Cardio Peripheral pulses: Peripheral pulses 2+ throughout Neuro General: patient oriented x3 Extrem Other: Left foot skin intact. There is some bruising of the lateral edge of the left foot. There is tenderness at the base of the 5th metatarsal. Sensation intact. EHL intact. No pain along the mediolateral malleolus. Neurovascularly intact. Office Procedures AMB Fracture Care Fracture Billing Code: Fracture Billing Code Results Reviewed Results Reviewed: XR foot LT min 3V 02/14/25 IMPRESSION: 1. Stable alignment of oblique fifth metatarsal fracture without gross changes of bony healing evident. Assessment & Plan Assessment & Plan (1) Displaced fracture of fifth metatarsal bone, left foot, initial encounter for closed fracture: Code(s): S92.352A - Displaced fracture of fifth metatarsal bone, left foot, initial encounter for closed fracture Category: Medical Plan: The patient will continue with a boot weightbearing as tolerated. He should rest and ice and elevate as appropriate. I explained to the patient to the course of healing 6 weeks for initial healing followed by 6 weeks for full healing. He can see me back in 6-8 weeks for repeat x-rays and re-evaluation, sooner if needed. Orders: Orders XR foot LT min 3V 02/14/25 M79.672 - Pain in left foot Medications: Discontinued docusate sodium (Colace) Discontinued Reason: Patient no longer taking 100 mg PO BID 20 caps 0RF oxycodone Partial Fill upon patient request. Discontinued Reason: Patient no longer taking 5 mg PO Q4H PRN 30 tabs 0RF pain Coding Level of Care Code New Pt Level 3 (06439) Complex EM visit Add On G2211 Diagnoses Displaced fracture of fifth metatarsal bone, left foot, initial encounter for closed fracture S92.352A CPT Codes Fracture Care - Fracture Billing Code: Fracture Billing Code ([id number])
[2025-02-14 15:27] VITALS: BP 110/56; BMI 35.4
--- OUTSIDE RECORDS SUMMARY | 2025-02-14 17:11 | XMS_ITS | Clinical Summary ---
Author Organization [facility] Address [address] [place] [address] Care Team Providers Care Production Hand Name Role Phone Cristo Spring MD Primary Care Provider [phone] Allergies No known active allergies Medications Medication [...] every night at bedtime. 5 07/20/2018 Active [place]-3 Fatty Acids (FISH OIL PO) Take 1 [...] Advance Directives For more information, please contact: [phone] Latest Code Status on File Code Status Date Activated Date Inactivated Comments Full Code 08/16/2018 11:55 AM 08/16/2018 6:37 PM This code status was ascertained in the following way: discussion with patient. Care Teams Production Hand Relationship Specialty Start Date End Date Cristo Spring MD [address] [address] PCP - General Station Worker 03/08/18
--- OUTSIDE RECORDS SUMMARY | 2025-02-14 17:11 | XMS_ITS | Encounter Summary ---
Author Organization [facility] Address [address] [place] [address] Care Team Providers Care Adaptive Physical Education Specialist Name Role Phone Unavailable Primary Care Provider Unavailabl e Encounter Details Date Type Department Care Team (Late st Contact Info) Description 11/29/2023 Scanned Document [facility] [address] [facility] [address] [place] [id number] Marisela Bautista, MARJORIE [address] [place] [id number] Social History Tobacco Use Types Packs/Day Years [...]
--- OUTSIDE RECORDS SUMMARY | 2025-02-14 17:11 | XMS_ITS | Clinical Summary ---
Author Organization [facility] Address [address] [place] [address] Phone Care Team Providers Care Mill Supervisor Name Role Phone Cristo Spring MD Primary Care Provider [phone] Allergies No known active allergies Medications hydroCHLOROthiazi [...] mouth at bedtime. 0 Active fish,bora,flax oils-om3,6,9no1 ([place] 3-6-9) 1,200 mg capsule Take 1,200 mg [...] Type Department Care Team Description 01/12/2025 Telephone [facility] Cardiology [facility] [address] [facility] [address] [place] [address] Ari Patricio MD Medical Records 11/24/2024 8:50 AM EST Office Visit [facility] [address] [place] [address] Ari Patricio MD Coronary artery disease, unspecified vessel or lesion type, unspecified whether angina present, unspecified whether [place] or transplanted heart (Primary Dx); Palpitations from [...] type, unspecified whether angina present, unspecified whether [place] or transplanted heart from Last 3 Months Results * ECG 12 lead (11/24/2024 8:51 AM EST) Ventricular Rate ECG 70 BPM GEMUSE Atrial Rate 70 BPM GEMUSE P-R Interval 162 ms GEMUSE QRS Duration 78 ms GEMUSE Q-T Interval 380 ms GEMUSE QTc 410 ms GEMUSE P Wave [place] 45 degrees GEMUSE R [place] 31 degrees GEMUSE T [place] -6 degrees GEMUSE ECG Interpretation Sinus rhythm with Premature supraventricular complexes Inferior infarct , age undetermined Abnormal ECG No previous ECGs available Confirmed by Jacques PATRICIO JAMES ([id number]) on 11/24/2024 1:19:31 PM GEM[facility] 11/24/2024 8:51 AM EST 11/24/2024 1:19 PM EST us Ari Patricio MD ECG ORDERABLES Final Result [facility] from Last 3 Months Insurance [employer] MEDICARE ADVANTAGE Care Teams Mill Supervisor Relationship Specialty Start Date End Date Cristo Spring MD [address] [place] PCP - General Quality Control Scientist 03/08/18
--- OUTSIDE RECORDS SUMMARY | 2025-02-14 17:11 | XMS_ITS | Clinical Summary ---
Author Organization [facility] Address [address] [place] [address] Care Team Providers Care Progressive Assembler And Fitter Name Role Phone Unavailable Primary Care Provider [...] mg total) by mouth nightly. 08/10/2023 Active [place]-3 Fatty Acids (FISH OIL PO) Take 1 [...]
--- OUTSIDE RECORDS SUMMARY | 2025-02-14 17:11 | XMS_ITS | Clinical Summary ---
Author Organization [facility] Address [address] [facility] [address] [place] [address] Phone Care Team Providers Care Account Receivable Associate Name Role Phone Cristo Spring MD Primary Care Provider [phone] Allergies No known active allergies Medications Aspirin [...] Office Visit [facility] [address] [address] Alosno Vance MD Stage 3b chronic kidney disease (HCC) (Primary Dx); Diabetes mellitus, not otherwise specified (HCC); Cyst of kidney; Coronary arteriosclerosis, not otherwise specified 01/11/2025 Orders Only [facility] [address] [address] Alonso Vance MD from Last 3 Months [...] Visit [facility] [address] [facility] [address] [place] [address] Alonso Vance MD [address] [facility] [address] [place] [address] Health Maintenance Due Date Last [...] None seen 0 - 5 /hpf [facility] RBC, Urine 0-2 0 - 2 /hpf [facility] Squamous Epithelial, Urine None seen 0 - 10 /hpf [facility] Casts None seen None seen /lpf [facility] Bacteria, Urine None seen None seen/Few [facility] 01/11/2025 10:5 0 AM EST 01/11/2025 us Alonso Vance MD LAB MICROBIOLOGY - GENERAL OR DERABLES Final Result Performing Organization Address City/[facility]/ZIP Co de Phone Number [facility] [address] [place] [address] * Protein, Total, Random Urine w/Creatinine (Protein/Creat Ratio) (01/11/2025 10:50 AM EST) Creatinine, Ur 180.0 Not Estab. mg/dL [facility] Protein, Ur 26.5 Not Estab. mg/dL [facility] Urine Protein/Creatin ine Ratio 147 0 - 200 mg/g creat [facility] 01/11/2025 10:5 0 AM EST 01/11/2025 us Alonso Vance MD LAB URINE ORDERABLES Final Re sult [facility] [address] [place] [address] * Vitamin D 25 Hydroxy (01/11/2025 10:50 AM EST) Vitamin D, 25-OH, Total 30.8 30.0 - 100.0 ng/mL [facility] Comment: Vitamin D deficiency has been defined by the [place] of Medicine and an Endocrine Society practice guideline as a level of serum 25-OH vitamin D less than 20 ng/mL (1,2). The Endocrine Society went on to further define vitamin D insufficiency as a level between 21 and 29 ng/mL (2). 1. IOM ([place] of Medicine). 2010. Dietary reference ?? intakes for calcium and D. [place]: The ?? National [employer] Press. 2. Stef MF, Valod CAZARES, Michelle UNDERWOOD, et al. ?? Evaluation, treatment, and prevention of vitamin D ?? deficiency: an Endocrine Society clinical practice ?? guideline. JCEM. 2010; 96(7):1911-30. 01/11/2025 10:5 0 AM EST 01/11/2025 us Alonso Vance MD LAB BLOOD ORDERABLES Final Re sult [facility] [address] [place] [address] * (ABNORMAL) Urinalysis with microscopic (01/11/2025 10:50 AM EST) Specific [place], Urine 1.021 1.005 - 1.030 [facility] [phone] pH Urine 6.5 5.0 - 7.5 [facility] Color, Urine Yellow Yellow [facility] Appearance Urine Clear Clear [facility] WBC Esterase Urine Negative Negative [facility] [phone] Protein, Ur 1+(A) Negative/Tra ce [facility] [phone] Glucose, Ur Negative Negative [facility] Ketones, Urine Negative Negative [facility] [phone] Blood Urine Negative Negative [facility] Bilirubin Urine Negative Negative [facility] Urobilinogen Urine 1.0 0.2 - 1.0 mg/dL [facility] Nitrite, Urine Negative Negative [facility] Microscopic Examination See below: [facility] Comment:Microscopic was donnie cated and was performed. 01/11/2025 10:5 0 AM EST 01/11/2025 us Alonso Vance MD LAB URINE ORDERABLES Final Re sult [facility] [address] [place] [address] * CBC and Differential (01/11/2025 10:50 AM EST) WBC 9.7 3.4 - 10.8 x10E3/uL [facility] RBC 5.08 4.14 - 5.80 x10E6/uL [facility] Hemoglobin 14.0 13.0 - 17.7 g/dL [facility] Hematocrit 42.5 37.5 - 51.0 % [facility] MCV 84 79 - 97 fL [facility] MCH 27.6 26.6 - 33.0 pg [facility] MCHC 32.9 31.5 - 35.7 g/dL [facility] RDW 13.6 11.6 - 15.4 % [facility] Platelets 210 150 - 450 x10E3/uL [facility] Neutrophils Relative 65 Not Estab. % [facility] Lymphocytes Relative 24 Not Estab. % [facility] Monocytes 8 Not Estab. % [facility] Eosinophils Relative 2 Not Estab. % [facility] Basophils Relative 0 Not Estab. % [facility] Neutrophils Absolute 6.4 1.4 - 7.0 x10E3/uL [facility] Lymphocytes Absolute 2.3 0.7 - 3.1 x10E3/uL [facility] Monocytes Absolute 0.8 0.1 - 0.9 x10E3/uL [facility] Eosinophils Absolute 0.2 0.0 - 0.4 x10E3/uL [facility] Basophils Absolute 0.0 0.0 - 0.2 x10E3/uL [facility] Immature Granulocytes 1 Not Estab. % [facility] Immature Grans (Absolute) 0.1 0.0 - 0.1 x10E3/uL [facility] 01/11/2025 10:5 0 AM EST 01/11/2025 Alonso Vance MD LAB BLOOD ORDERABLES Final Re sult [facility] [address] [place] [address] * Uric Acid (01/11/2025 10:50 AM EST) Pathologist [facility] Uric Acid 7.9 3.8 - 8.4 mg/dL [facility] Comment:Therapeutic target f or gout patients: <6.0 01/11/2025 10:5 0 AM EST 01/11/2025 Alonso Vance MD LAB BLOOD ORDERABLES Final Re sult [facility] [address] [place] [address] * Phosphorus (01/11/2025 10:50 AM EST) Phosphorus 2.8 2.8 - 4.1 mg/dL [facility] 01/11/2025 10:5 0 AM EST 01/11/2025 Alonso Vance MD LAB BLOOD ORDERABLES Final Re sult Performing Organization Address City/[facility]/ZIP Co de Phone Number [facility] [address] [place] [address] * (ABNORMAL) PTH, Intact (01/11/2025 10:50 AM EST) Pathologist [facility] PTH 69(H) 15 - 65 pg/mL [facility] 01/11/2025 10:5 0 AM EST 01/11/2025 us Alonso Vance MD LAB BLOOD ORDERABLES Final Re sult Performing Organization Address [facility] [place]/[facility]/ZIP Co de Phone Number [facility] [address] [place] [address] * Magnesium (01/11/2025 10:50 AM EST) Pathologist [facility] Magnesium 1.8 1.6 - 2.3 mg/dL [facility] 01/11/2025 10:5 0 AM EST 01/11/2025 us Alonso Vance MD LAB BLOOD ORDERABLES Final Re sult Performing Organization Address [facility] Co de Phone Number [facility] [address] [place] [address] * (ABNORMAL) Comprehensive Metabolic Panel (01/11/2025 10:50 AM EST) Pathologist [facility] Glucose 130(H) 70 - 99 mg/dL [facility] BUN 24 8 - 27 mg/dL [facility] Creatinine 1.30(H) 0.76 - 1.27 mg/dL [facility] eGFR CKD-EPI CR 2020 56(L) >59 mL/min/1.7 3 [facility] BUN/Creatinine Ratio 18 10 - 24 [facility] Sodium 146(H) 134 - 144 mmol/L [facility] Potassium 4.4 3.5 - 5.2 mmol/L [facility] Chloride 106 96 - 106 mmol/L [facility] Bicarbonate (CO2) 23 20 - 29 mmol/L [facility] Calcium 9.9 8.6 - 10.2 mg/dL [facility] Total Protein 6.8 6.0 - 8.5 g/dL [facility] Albumin 4.2 3.8 - 4.8 g/dL [facility] Globulin 2.6 1.5 - 4.5 g/dL [facility] Total Bilirubin 0.5 0.0 - 1.2 mg/dL [facility] Alkaline Phosphatase 96 44 - 121 IU/L [facility] AST (SGOT) 21 0 - 40 IU/L [facility] ALT (SGPT) 21 0 - 44 IU/L [facility] 01/11/2025 10:5 0 AM EST 01/11/2025 us Alonso Vance MD LAB BLOOD ORDERABLES Final Re sult [facility] [address] [place] [address] from Last 3 Months Insurance A[employer] [facility] PPO ([id number]) [employer] [facility] AD[facility] PPO ([id number]) Care Teams Account Receivable Associate Relationship Specialty Start Date End Date Cristo Spring MD [facility] [address] [place] [address] [address] [place] [address] PCP - General Internal Medicine 09/14/22
== END 2025-02-14 15:28 | disposition home or self-care (01) ==
LOC: HO.HOS 14:24
PROVIDERS: PCP Internal Medicine; Visit Provider Physician Assistant
DX: S92.352A Displaced fracture of fifth metatarsal bone, left foot, initial encounter for closed fracture (principal)
CPT/HCPCS: 99203; G2211

== ENCOUNTER → 2025-02-14 14:37 | Outpatient (BNV) | payer MEDICARE, SELFPAY | PROVIDERS: Visit Provider Radiology Diagnostic Radiology | DX: S92.352D Displaced fracture of fifth metatarsal bone, left foot, subsequent encounter for fracture with routine healing (principal) | CPT/HCPCS: 73630 ==

== ENCOUNTER 2025-02-20 10:43 | Outpatient (AMB) | payer MEDICARE, SELFPAY ==
--- NOTE | 2025-02-20 10:45 | A.SPINEOV_ITS ---
Intake Visit Reasons: 1st post op Intake Note: Mr. Vela is here today for his 1st post op. Felt Finisher Required: No Allergies No Known Allergies Allergy (Verified 02/20/25 10:47) Assessment & Plan Assessment & Plan (1) Lumbar stenosis with neurogenic claudication: Code(s): M48.062 - Spinal stenosis, lumbar region with neurogenic claudication Category: Medical Plan Mr Vela is 3 weeks out from his L4-5, L3-4 decompression. He has been very pleased with how things went with the standpoint of pain from surgery. He has not had any pain that he had down his leg. He is very excited that he was able to avoid a fusion surgery altogether. He did unfortunately fracture is foot right after surgery when he was home on postop day 1. And was brushing his teeth in his leg buckled. He collapse of the floor and unfortunately broke his metatarsal it sounds like and has been in a walking boot with crutches. His wound is healed up beautifully. We discussed activity guidelines, restrictions and expectations after lumbar decompression. I would like to see him back in 6 weeks for final postoperative visit. Abelardo Young MD, PhD [facility] Coding Level of Care Code Global (95209) Diagnoses Lumbar stenosis with neurogenic claudication M48.062
--- OUTSIDE RECORDS SUMMARY | 2025-02-20 12:55 | XMS_ITS | Patient Health Record ---
Author Organization [facility] Address [address] [facility] [address] [place] [address] Care Team Providers Care Patient Relations Coordinator Name Role Phone Budindira Cristo Primary Care [...] & 10 x 100MG as directed Orally [facility] traMADol HCl 50 MG 1 tablet as needed Orally Once a day Active Zolpidem Tartrate 5 MG 1 tablet at bedti ok as needed Orally Once a day Active [...] Coverage End Date [employer] Medicare [address] [place] [phone] [id number] Leroy Badillo i Self - patient is [...] 2021 and 2022 COVID vaccinated X 3 ([employer]) Surgical History Surgery Date(Month/Year) right ankle ORIF Hospitalization History Reason Date(Month/Year) right ankle surgery
--- OUTSIDE RECORDS SUMMARY | 2025-02-20 12:55 | XMS_ITS | Clinical Summary ---
Author Organization [facility] Address [address] [place] [address] Care Team Providers Care Director Motion Picture Name Role Phone Unavailable Primary Care Provider [...] mg total) by mouth nightly. 08/10/2023 Active [place]-3 Fatty Acids (FISH OIL PO) Take 1 [...]
--- OUTSIDE RECORDS SUMMARY | 2025-02-20 12:55 | XMS_ITS | Clinical Summary ---
Author Organization [facility] Address [address] [place] [address] Care Team Providers Care Heating And Blending Supervisor Name Role Phone Cristo Spring MD Primary Care Provider [phone] Allergies No known active allergies Medications Medication [...] every night at bedtime. 5 07/20/2018 Active [place]-3 Fatty Acids (FISH OIL PO) Take 1 [...] Advance Directives For more information, please contact: [phone] Latest Code Status on File Code Status Date Activated Date Inactivated Comments Full Code 08/16/2018 11:55 AM 08/16/2018 6:37 PM This code status was ascertained in the following way: discussion with patient. Care Teams Heating And Blending Supervisor Relationship Specialty Start Date End Date Cristo Spring MD [address] [address] PCP - General Pick Up And Delivery Driver 03/08/18
--- OUTSIDE RECORDS SUMMARY | 2025-02-20 12:55 | XMS_ITS | Clinical Summary ---
Author Organization [facility] [employer] Address [address] [place] [address] Phone Care Team Providers Care Ride Operator Name Role Phone Cristo Spring MD Primary Care Provider [phone] Allergies No known active allergies Medications hydroCHLOROthiaz [...] mg by mouth daily. 08/12/20 14 Active colchicine (MITIGARE) 0.6 mg capsule capsule Take by mouth as needed. Active esomeprazole (NexIUM) 40 mg packet Take 40 mg by mouth every morning (before breakfast). Active metoprolol succinate (TOPROL-XL) 25 mg 24 hr tablet Take 1 Tablet by mouth daily. Active zolpidem (AMBIEN) 10 mg tablet Take 1 Tablet by mouth at bedtime. 01/17/20 20 Active fish,bora,flax oils-om3,6,9no1 ([place] 3-6-9) 1,200 mg capsule Take 1,200 mg by mouth daily. 03/18/20 12 Active amLODIPine (NORVASC) 5 mg tabletIndication s:Essential (primary) hypertension TAKE 1 TABLET BY MOUTH EVERY DAY 90 tablet 3 01/05/20 25 Active atorvastatin (LIPITOR) 80 mg tablet TAKE 1 TABLET BY MOUTH EVERY DAY 90 tablet 1 02/20/20 25 Active atorvastatin (LIPITOR) 80 mg tablet TAKE 1 TABLET BY MOUTH EVERY DAY 08/24/20 24 025 Discontinued Active Problems Problem Noted [...] Type Department Care Team Description 01/12/2025 Telephone [facility] Cardiology [facility] [address] [place] [phone] Ari Patricio MD Medical Records 11/24/2024 8:50 AM EST Office Visit [facility] Cardiology [facility] [address] [place] [address] Ari Patricio MD Coronary artery disease, unspecified vessel or lesion type, unspecified whether angina present, unspecified whether tazlina or transplanted heart (Primary Dx); Palpitations from [...] 11/24/2024 8:44 AM EST Plan of Treatment Upcoming Encounters Date Type Department Care Team (Late st Contact Info) Description 03/12/2025 3:00 PM EDT Consult Pulmonolgy - [place] [address] [facility] [address] [place] [id number] Haylee Camarillo MD [address] [facility] [address] [place] [address] Health Maintenance Due Date Last Done Comments [...] age to complete this topic Meningococcal B Vaccine Aged Out No l onger eligible based on patient's age to complete [...] type, unspecified whether angina present, unspecified whether tazlina or transplanted heart from Last 3 Months Results * ECG 12 lead (11/24/2024 8:51 AM EST) Ventricular Rate ECG 70 BPM GEMUSE Atrial Rate 70 BPM GEMUSE P-R Interval 162 ms GEMUSE QRS Duration 78 ms GEMUSE Q-T Interval 380 ms GEMUSE QTc 410 ms GEMUSE P Wave [place] 45 degrees GEMUSE R [place] 31 degrees GEMUSE T [place] -6 degrees GEMUSE ECG Interpretation Sinus rhythm with Premature supraventricular complexes Inferior infarct , age undetermined Abnormal ECG No previous ECGs available Confirmed by Jacques PATRICIO JAMES ([id number]) on 11/24/2024 1:19:31 PM GEMUSE 11/24/2024 8:51 AM EST 11/24/2024 1:19 PM EST us Ari Patricio MD ECG ORDERABLES Final Result GEMUSE from Last 3 Months Insurance [employer] MED[employer] Care Teams Ride Operator Relationship Specialty Start Date End Date Cristo Spring MD [address] [facility] [address] [place], [place] PCP - General Resident Care Aide 03/08/18
--- OUTSIDE RECORDS SUMMARY | 2025-02-20 12:55 | XMS_ITS | Clinical Summary ---
Author Organization [facility] Address [address] [facility] [address] [place] [address] Phone Care Team Providers Care Er Tech Name Role Phone Cristo Spring MD Primary Care Provider [phone] Allergies No known active allergies Medications Aspirin [...] Office Visit [facility] [address] [phone] Alonso Vance MD Stage 3b chronic kidney disease (HCC) (Primary Dx); Diabetes mellitus, not otherwise specified (HCC); Cyst of kidney; Coronary arteriosclerosis, not otherwise specified 01/11/2025 Orders Only [facility] [address] [address] Alonso Vance MD from Last 3 Months [...] Visit [facility] [address] [facility] [address] [place] [address] Alonso Vance MD [address] [facility] [address] [place] [address] Health Maintenance Due Date Last [...] None seen 0 - 5 /hpf [facility] RBC, Urine 0-2 0 - 2 /hpf [facility] Squamous Epithelial, Urine None seen 0 - 10 /hpf [facility] Casts None seen None seen /lpf [facility] Bacteria, Urine None seen None seen/Few [facility] 01/11/2025 10:5 0 AM EST 01/11/2025 Alonso Vance MD LAB MICROBIOLOGY - GENERAL OR DERABLES Final Result Performing Organization Address City/[facility]/ZIP Co de Phone Number [facility] [address] [place] [address] * Protein, Total, Random Urine w/Creatinine (Protein/Creat Ratio) (01/11/2025 10:50 AM EST) Pathologist [facility] Creatinine, Ur 180.0 Not Estab. mg/dL [facility] Protein, Ur 26.5 Not Estab. mg/dL [facility] Urine Protein/Creatin ine Ratio 147 0 - 200 mg/g creat [facility] 01/11/2025 10:5 0 AM EST 01/11/2025 us Alonso Vance MD LAB URINE ORDERABLES Final Re sult Performing Organization Address City/[facility]/ZIP Co de Phone Number [facility] [address] [place] [address] * Vitamin D 25 Hydroxy (01/11/2025 10:50 AM EST) Vitamin D, 25-OH, Total 30.8 30.0 - 100.0 ng/mL [facility] Comment: Vitamin D deficiency has been defined by the [place] of Medicine and an Endocrine Society practice guideline as a level of serum 25-OH vitamin D less than 20 ng/mL (1,2). The Endocrine Society went on to further define vitamin D insufficiency as a level between 21 and 29 ng/mL (2). 1. IOM ([place] of Medicine). 2010. Dietary reference ?? intakes for calcium and D. [place]: The ?? National [employer] Press. 2. Stef MF, Valdo CAZARES, Michelle UNDERWOOD, et al. ?? Evaluation, treatment, and prevention of vitamin D ?? deficiency: an Endocrine Society clinical practice ?? guideline. JCEM. 2010; 96(7):1911-30. 01/11/2025 10:5 0 AM EST 01/11/2025 us Alonso Vance MD LAB BLOOD ORDERABLES Final Re sult [facility] [address] [place] [address] * (ABNORMAL) Urinalysis with microscopic (01/11/2025 10:50 AM EST) Pathologist [facility] Specific [place], Urine 1.021 1.005 - 1.030 [facility] [phone] pH Urine 6.5 5.0 - 7.5 [facility] [phone] Color, Urine Yellow Yellow [facility] Appearance Urine Clear Clear [facility] [phone] WBC Esterase Urine Negative Negative [facility] [phone] Protein, Ur 1+(A) Negative/Tra ce [facility] Glucose, Ur Negative Negative [facility] [phone] Ketones, Urine Negative Negative [facility] [phone] Blood Urine Negative Negative [facility] Bilirubin Urine Negative Negative [facility] Urobilinogen Urine 1.0 0.2 - 1.0 mg/dL [facility] Nitrite, Urine Negative Negative [facility] Microscopic Examination See below: [facility] Comment:Microscopic was donnie cated and was performed. 01/11/2025 10:5 0 AM EST 01/11/2025 us Alonso Vance MD LAB URINE ORDERABLES Final Re sult [facility] [address] [place] [address] * CBC and Differential (01/11/2025 10:50 AM EST) WBC 9.7 3.4 - 10.8 x10E3/uL [facility] RBC 5.08 4.14 - 5.80 x10E6/uL [facility] Hemoglobin 14.0 13.0 - 17.7 g/dL [facility] Hematocrit 42.5 37.5 - 51.0 % [facility] MCV 84 79 - 97 fL [facility] MCH 27.6 26.6 - 33.0 pg [facility] MCHC 32.9 31.5 - 35.7 g/dL [facility] RDW 13.6 11.6 - 15.4 % [facility] Platelets 210 150 - 450 x10E3/uL [facility] Neutrophils Relative 65 Not Estab. % [facility] Lymphocytes Relative 24 Not Estab. % [facility] Monocytes 8 Not Estab. % [facility] Eosinophils Relative 2 Not Estab. % [facility] Basophils Relative 0 Not Estab. % [facility] Neutrophils Absolute 6.4 1.4 - 7.0 x10E3/uL [facility] Lymphocytes Absolute 2.3 0.7 - 3.1 x10E3/uL [facility] Monocytes Absolute 0.8 0.1 - 0.9 x10E3/uL [facility] Eosinophils Absolute 0.2 0.0 - 0.4 x10E3/uL [facility] Basophils Absolute 0.0 0.0 - 0.2 x10E3/uL [facility] Immature Granulocytes 1 Not Estab. % [facility] Immature Grans (Absolute) 0.1 0.0 - 0.1 x10E3/uL [facility] 01/11/2025 10:5 0 AM EST 01/11/2025 Alonso Vance MD LAB BLOOD ORDERABLES Final Re sult [facility] [address] [place] [address] * Uric Acid (01/11/2025 10:50 AM EST) Uric Acid 7.9 3.8 - 8.4 mg/dL [facility] Comment:Therapeutic target f or gout patients: <6.0 01/11/2025 10:5 0 AM EST 01/11/2025 Alonso Vance MD LAB BLOOD ORDERABLES Final Re sult [facility] [address] [place] [address] * Phosphorus (01/11/2025 10:50 AM EST) Phosphorus 2.8 2.8 - 4.1 mg/dL [facility] 01/11/2025 10:5 0 AM EST 01/11/2025 Alonso Vance MD LAB BLOOD ORDERABLES Final Re sult Performing Organization Address [facility] Co de Phone Number [facility] [address] [place] [address] * (ABNORMAL) PTH, Intact (01/11/2025 10:50 AM EST) PTH 69(H) 15 - 65 pg/mL [facility] 01/11/2025 10:5 0 AM EST 01/11/2025 Alonso Vance MD LAB BLOOD ORDERABLES Final Re sult Performing Organization Address [facility] Co de Phone Number [facility] [address] [place] [address] * Magnesium (01/11/2025 10:50 AM EST) Magnesium 1.8 1.6 - 2.3 mg/dL [facility] 01/11/2025 10:5 0 AM EST 01/11/2025 Alonso Vance MD LAB BLOOD ORDERABLES Final Re sult Performing Organization Address City/[facility]/ZIP Co de Phone Number [facility] [address] [place] [address] * (ABNORMAL) Comprehensive Metabolic Panel (01/11/2025 10:50 AM EST) Pathologist [facility] Glucose 130(H) 70 - 99 mg/dL [facility] BUN 24 8 - 27 mg/dL [facility] Creatinine 1.30(H) 0.76 - 1.27 mg/dL [facility] eGFR CKD-EPI CR 2020 56(L) >59 mL/min/1.7 3 [facility] BUN/Creatinine Ratio 18 10 - 24 [facility] Sodium 146(H) 134 - 144 mmol/L [facility] Potassium 4.4 3.5 - 5.2 mmol/L [facility] Chloride 106 96 - 106 mmol/L [facility] Bicarbonate (CO2) 23 20 - 29 mmol/L [facility] Calcium 9.9 8.6 - 10.2 mg/dL [facility] Total Protein 6.8 6.0 - 8.5 g/dL [facility] Albumin 4.2 3.8 - 4.8 g/dL [facility] Globulin 2.6 1.5 - 4.5 g/dL [facility] Total Bilirubin 0.5 0.0 - 1.2 mg/dL [facility] Alkaline Phosphatase 96 44 - 121 IU/L [facility] AST (SGOT) 21 0 - 40 IU/L [facility] ALT (SGPT) 21 0 - 44 IU/L [facility] 01/11/2025 10:5 0 AM EST 01/11/2025 us Alonso Vance MD LAB BLOOD ORDERABLES Final Re sult [facility] [address] [place] [address] from Last 3 Months Insurance AETNA [facility] ADV PPO ([id number]) [facility] P[facility] ([id number]) Care Teams Er Tech Relationship Specialty Start Date End Date Cristo Spring MD [employer] [address] [place] [address] [address] [place] [address] PCP - General Internal Medicine 09/14/22
--- OUTSIDE RECORDS SUMMARY | 2025-02-20 12:55 | XMS_ITS | Encounter Summary ---
Author Organization [facility] Address [address] [place] [address] Care Team Providers Care Dry Cleaning Counter Clerk Name Role Phone Unavailable Primary Care Provider Unavailabl e Encounter Details Date Type Department Care Team (Late st Contact Info) Description 11/29/2023 Scanned Document [facility] [address] [facility] [address] [place] [id number] Marisela Bautista, MARJORIE [address] [place] [id number] Social History Tobacco Use Types Packs/Day Years [...]
== END 2025-02-20 11:19 | disposition home or self-care (01) ==
LOC: HO.HNS 10:43
PROVIDERS: PCP Internal Medicine; Visit Provider Physician Assistant
DX: M48.062 Spinal stenosis, lumbar region with neurogenic claudication (principal)
CPT/HCPCS: 99024

== ENCOUNTER → 2025-02-20 10:43 | Outpatient (BNVA) | payer MEDICARE, SELFPAY | PROVIDERS: PCP Internal Medicine; Visit Provider Physician Assistant | DX: M48.062 Spinal stenosis, lumbar region with neurogenic claudication (principal) | CPT/HCPCS: 99212 ==

== ENCOUNTER 2025-04-03 13:14 | Outpatient (AMB) | payer MEDICARE, SELFPAY ==
--- NOTE | 2025-04-03 13:42 | HO.SPINEOV ---
Intake Visit Reasons: 2nd post op Intake Note: Mr. Vela is here today for his 2nd post op. Medical Records Director Required: No Allergies No Known Allergies Allergy (Verified 02/20/25 10:47) Assessment & Plan Assessment & Plan (1) Lumbar stenosis with neurogenic claudication: Code(s): M48.062 - Spinal stenosis, lumbar region with neurogenic claudication Category: Medical Plan Operation: L3-4, L4-5 Lumbar decompression Leroy is a pleasant 79 year old male who comes in today for his 2nd postoperative visit. To recap he had a somewhat complicated postoperative course, and broke his foot the 1st day after returning home. Given this, he has had nearly no pain related to his low back since his surgery. He is very satisfied with the surgery, and states that he has told for of his friends who suffer from back issues that they need to come in and see Dr. Young. He is completing his ADLs without much issue, and states he is essentially back to regular activity aside from his foot being in a cast. No new neurological deficits. The patient ambulates well with the assistance of his walking boot. His posterior incision site is closed and well healed. There is no need for continued routine follow up with Leroy, he may be discharged as a patient. Gregory Young MD,PhD [facility] Coding Level of Care Code Global (82650) Diagnoses Lumbar stenosis with neurogenic claudication M48.062
--- OUTSIDE RECORDS SUMMARY | 2025-04-03 14:21 | XMS_ITS | Patient Health Record ---
Author Organization [facility] Address [address] [address] Care Team Providers Care Furnace Repair Mechanic Name Role Phone BudCristo jacobson Primary Care Provider LARRY Pena Unavailable [phone] Allergies No Known Allergies Reason For Referral No Information Medications Medication SIG (Take, Route, Frequency, Duration) Notes Start Date End Date Status hydroCHLOROthiazide 25 MG 1 tablet in th e morning Orally Once a day Active Lisinopril 40 MG 1 tablet Orally Once a day Active Metoprolol Succinate ER 100 MG 1 tablet Orally Once a day Active traMADol HCl 50 MG 1 tablet as needed Orally Once a day Active Colchicine 0.6 MG 1 tablet Orally Active Esomeprazole Magnesium 40 MG 1 capsule O rally Once a day Active Cialis 20 MG 1 tablet as needed Orally Once a day Active Zolpidem Tartrate 5 MG 1 tablet at bedti co as needed Orally Once a day Active Paxlovid (150/100) 10 x 150 MG & 10 x 100MG as directed Orally [facility] amLODIPine Besylate 2.5 MG 1 tablet Oral ly Once a day Active Aspirin 81 81 MG 1 tablet Orally Once a day Active Atorvastatin Calcium 80 MG 1 tablet Oral ly Once a day Active Vital Signs Height 5ft 7in in 03/19/2025 Weight 218.3 lbs 03/19/2025 BMI 34.19 kg/m2 03/19/2025 Encounters Encounter Location Date Provider Diagnosis [facility] [address] [facility] [address] [place] [address] 03/19/2025 LARRY PICHARDO Closed nondisplaced fracture of fifth metatarsal bone of left foot, initial encounter S92.355A Assessments Encounter Date Diagnosis (ICD Code) Assessment Notes Treatment Notes Treatment Clinical Notes Section Notes 03/19/2025 Closed nondisplaced fracture of fifth metatarsal bone of left foot, initial encounter (ICD-10 - S92.355A) Patient examined and evaluated. Past medical history reviewed. He sustained a fall back on 01/31/2025 resulting in a nondisplaced extra articular 5th metatarsal shaft fracture on the left. Three weightbearing radiographs taken in the office today and reviewed. There is interval healing to the fracture site. I advised that these types of fractures can take up to 12 weeks to heal. I advised that swelling can fluctuate for 6-12 months after the injury. I advised he continue to use the CAM boot for another three weeks and focus on elevating and icing for swelling control. I showed him how to use the pneumatic part of the boot today. He does have some medial ankle tenderness on the left likely PTTD vs arthrosis. We discussed transition to an ASO brace in three weeks to help with the ankle pain. He was agreeable with this plan. I did discuss signs and symptoms of DVT/PE with him today. He has no symptoms today, but advised he notify us or go to the nearest ED if symptoms do occur. I will see him back in 3 weeks or sooner if needed. Plan Of Treatment Pending Test Test Name Order Date X ray : Foot, left 3v 03/19/2025 Next Appt Details Provider Name:LARRY PICHARDO, 04/12/2025 10:30:00 AM, [address], [address], Insurance Providers Payer Name Payer Address Payer Phone Subscriber Number Group Number Insured Name Patient Relationship to Insured Coverage Start Date Coverage End Date [employer] Medicare [address] [place] [phone] [id number] Leroy Badillo i Self - patient is [...] 2021 and 2022 COVID vaccinated X 3 ([employer]) Surgical History Surgery Date(Month/Year) right ankle ORIF laminectomy spine 01/2025 Hospitalization History Reason Date(Month/Year) right ankle surgery
--- OUTSIDE RECORDS SUMMARY | 2025-04-03 14:21 | XMS_ITS ---
Author Organization [facility] Address [address] [facility] [address] [place] [address] Care Team Providers Care Blockmason Name Role Phone BudindiraCristo Primary Care Provider LARRY Pena Unavailable [phone] Allergies No Known Allergies REASON FOR VISIT left foot 5th toe broken X_rays done at [facility].... Advised patient to bring X-ray disc toappt. Medications Medication SIG (Take, Route, Frequency, Duration) Notes Start Date End Date Status Cialis 20 MG 1 tablet as needed Orally Once a day Active Paxlovid (150/100) 10 x 150 MG & 10 x 100MG as directed Orally [facility] amLODIPine Besylate 2.5 MG 1 tablet Oral ly Once a day Active Aspirin 81 81 MG 1 tablet Orally Once a day Active Atorvastatin Calcium 80 MG 1 tablet Oral ly Once a day Active hydroCHLOROthiazide 25 MG 1 tablet in th e morning Orally Once a day Active Lisinopril 40 MG 1 tablet Orally Once a day Active Metoprolol Succinate ER 100 MG 1 tablet Orally Once a day Active Colchicine 0.6 MG 1 tablet Orally Active Esomeprazole Magnesium 40 MG 1 capsule O rally Once a day Active traMADol HCl 50 MG 1 tablet as needed Orally Once a day Active Zolpidem Tartrate 5 MG 1 tablet at bedti ne as needed Orally Once a day Active Vital Signs Height 5ft 7in in 03/19/2025 Weight 218.3 lbs 03/19/2025 BMI 34.19 kg/m2 03/19/2025 Encounters Encounter Location Date Provider Diagnosis [facility] [address] [facility] [address] [place] [address] 03/19/2025 LARRY PICHARDO Closed nondisplaced fracture of [...] or sooner if needed. Plan Of Treatment Treatment Notes Assessment Notes Closed nondisplaced fracture of fifth metatarsal bone of left foot, initial encounter Patient examined and evaluated. Past medical history [...] in 3 weeks or sooner if needed. Pending Test Test Name Order Date X ray : Foot, left 3v 03/19/2025 Next Appt Details Follow Up: 3 Weeks, Reason: Provider Name:LARRY KUOALLEY, 04/12/2025 10:30:00 AM, [address] [facility], [facility] [address], [place], [address], Progress Notes * Leroy ANAYA PDOB:04/1945 (79 yo M)Acc No.[id number]:03/19/2025 Progress Note Patient:?JACLYN Leroy P Provider:?Larry Marc DPJulianna :1945???Age:79 Y???Sex:Male Rishabh e:03/19/2025 Address: [facility], [id number] Pcp:Cristo Spring Subjective: * Chief Complaints: * ???left foot 5th toe broken X_rays done at [facility].... Advised patient to bring X-ray disc to appt. * HPI: ???Foot & Ankle:?Mr. Anaya presents for a new problem visit. He is here with his . He had a fall in his bathroom back on 01/31/2025 that resulted in a fracture to his left 5th metatarsal. He waited a few days before being evaluated at an ortho urgent care. He was then placed into a CAM boot and advised to follow with ortho. He states he saw an ortho specialist about 2 weeks later who advised he stay in the boot. He and his wished to have another opinion. He has continued to use the CAM boot for the past 7 weeks. He states that the pain around the fracture site has decreased. Most of his tenderness is actually around the inner ankle on the left. He does still get swelling the more he hangs the foot down or is on it. He denies any pain into the left calf. He also denies any shortness of breath or chest pain. * ROS:?General/Constitutional:?Denies?Chills.?Denies?Fatigue.?Denies?Fever.?Denies?Headache.?Endocrine:?Denies?Excessive sweating.?Denies?Excessive thirst.?Denies?Frequent urination.?Respiratory:?Denies?Cough.?Denies?Shortness of breath,?denies.?Denies?Wheezing.?Cardiovascular:?Denies?Chest pain.?Denies?Claudication.?Denies?Cyanosis.?Musculoskeletal:?Patient complaining of?left foot fracture and pain.?Admits?Arthritis/Arthralgia.?Admits?Back problems.?Admits?Leg cramps.?Denies?Limping gait.?Skin:?Denies?Masses.?Denies?Nail changes.?Denies?Skin lesion(s).? * Medical History:? * Surgical History:?right ankl e ORIF laminectomy spine 01/2025 * Hospitalization/Major Diagno stic Procedure:?right ankle surgery [...] * Allergies:?N.K.D.A.no[Allerg ies Verified] Objective: * Vitals:?Wt: 218.3 lbs, Ht: 5 ft 7in, BMI: 34.19 Index, Ht-cm: 170.18, Wt-k.02 kg. * Examination: ???General Examination: ???This is an elderly male. Alert and oriented today and in no acute distress. Patient comes in ambulating in CAM boot on the left and slip on sneaker on the right.??Breathing is regular and unlabored while sitting. Affect is pleasant and cooperative. No unusual anxiety or depression noted. Hearing intact to spoken word. No evidence of visual impairment that would impact self care or ambulation. Patient has palpable dorsalis pedis and posterior tibial pulse bilaterally. Small spider like varicosities visualized. Mild edema present around the left foot and ankle. No ecchymosis or erythema. Very minimal tenderness over the dorsal and lateral aspect of the left 5th metatarsal. Tenderness with pressure around the posterior aspect of the medial malleolus.?Capillary refill is less than 3 seconds to all digits bilaterally. Light touch sensation is symmetrical to all lower extremity dermatomes. Babinski is downgoing. Dermal atrophy present to both feet. There are no open wounds, rashes, or lesions noted. Mild pes planus deformity on the left. No pain with pressure into the left calf.?5/5 strength for anterior, posterior, and lateral lower extremity muscle groups on the left and right. Assessment: * Assessment: 1.?Closed nondisplaced fract ure of fifth metatarsal bone of left foot, initial encounter - S92.355A (Primary)??? Plan: * Treatment: * Procedures:?LEFT FOOT RADIOGRAPHS 03/19/2025 compared to 08/17/2023 3 weight bearing views (AP, LAT, LO PROJECTION/MO VIEW) Taken in the office and read by the physician. Osteopenia present. Mild narrowing and cystic changes to the 1st metatarsal phalangeal joint. Mallet deformity at the left 2nd DIPJ.? There is a left os trigonum present. There is a healing fracture noted to the 5th metatarsal shaft. New bone callus formation is present. 5th MTPJ is well aligned. This is nondisplaced and extraarticular. There is some mild narrowing at the ankle joint. Atherosclerotic changes seen around the [employer]. ? * Procedure Codes:?71709 X-RAY EXAM OF FOOT 3 Views, Modifiers: LT * Follow Up:?3 Weeks * Billing Information: * Visit Code:? 52793 Office Visit, Est Pt., Level 3. * Procedure Codes:? 21192 X-RAY EXAM OF FOOT 3 Views. Modifiers: LT * Sign off status: Completed true * Provider:?Larry Marc DPM Date:?03/19 Generated for Jeanine sharif/Clinton/Matthewitting on:?04/03/2025 02:20 PM EDT History and Physical Notes * Examination Category Sub-Category Detail Notes Category Not es General Examination This is an elderly male. Alert and oriented today and in no acute distress. Patient comes in ambulating in CAM boot on the left and slip on sneaker on the right. Breathing is regular and unlabored while sitting. Affect is pleasant and cooperative. No unusual anxiety or depression noted. Hearing intact to spoken word. No evidence of visual impairment that would impact self care or ambulation. Patient has palpable dorsalis pedis and posterior tibial pulse bilaterally. Small spider like varicosities visualized. Mild edema present around the left foot and ankle. No ecchymosis or erythema. Very minimal tenderness over the dorsal and lateral aspect of the left 5th metatarsal. Tenderness with pressure around the posterior aspect of the medial malleolus. Capillary refill is less than 3 seconds to all digits bilaterally. Light touch sensation is symmetrical to all lower extremity dermatomes. Babinski is downgoing. Dermal atrophy present to both feet. There are no open wounds, rashes, or lesions noted. Mild pes planus deformity on the left. No pain with pressure into the left calf. 5/5 strength for anterior, posterior, and lateral lower extremity muscle groups on the left and right.
--- OUTSIDE RECORDS SUMMARY | 2025-04-03 14:21 | XMS_ITS | Clinical Summary ---
Author Organization [facility] Address [address] [place] [address] Care Team Providers Care Lock Setter Name Role Phone Cristo Spring MD Primary Care Provider [phone] Allergies No known active allergies Medications Medication [...] every night at bedtime. 5 07/20/2018 Active [place]-3 Fatty Acids (FISH OIL PO) Take 1 [...] Advance Directives For more information, please contact: [phone] Latest Code Status on File Code Status Date Activated Date Inactivated Comments Full Code 08/16/2018 11:55 AM 08/16/2018 6:37 PM This code status was ascertained in the following way: discussion with patient. Care Teams Lock Setter Relationship Specialty Start Date End Date Cristo Spring MD [address] [address] PCP - General Coat Repair Inspector 03/08/18
--- OUTSIDE RECORDS SUMMARY | 2025-04-03 14:21 | XMS_ITS | Clinical Summary ---
Author Organization [facility] Address [address] [place] [address] Care Team Providers Care Sales Appointment Coordinator Name Role Phone Unavailable Primary Care Provider Unavailabl e Allergies No known active allergies Medications amLODIPine (NORVASC) 2.5 MG tablet Take 1 tablet (2.5 mg total) by mouth every morning. Active Aspirin Low Dose 81 MG EC tablet Take 1 tablet (81 mg total) by mouth every morning. 3 Active atorvastatin (LIPITOR) 80 MG tablet Take 1 tablet (80 mg total) by mouth every morning. 3 Active COLCHICINE PO Take 0.6 mg by mouth daily as needed. 3 Active esomeprazole (NexIUM) 40 MG capsule Take 1 capsule (40 mg total) by mouth daily as needed. 3 Active hydroCHLOROthi azide (HYDRODIURIL) 25 MG tablet Take 1 tablet (25 mg total) by mouth every morning. 3 Active lisinopril (PRINIVIL,ZeST RIL) 40 MG tablet Take 1 tablet (40 mg total) by mouth every morning. 3 Active zolpidem (AMBIEN) 5 MG tablet Take 1 tablet (5 mg total) by mouth nightly. 3 Active [place]-3 Fatty Acids (FISH OIL PO) Take 1 tablet by mouth daily as needed. Active polyethylene glycol-electro lytes (NuLYTELY, TRILYTE) 420 g solutionIndica tions:History of colon polyps Take as directed for Colonoscopy/GI Procedure. See administration instructions. 4000 mL 3 Active metoPROLOL SUCCINATE (TOPROL-XL) 25 MG 24 [...] Assigned at Male 07/20/2023 11:32 AM EDT Legal Sex Male 6:32 PM EST Gender Identity Male 07/20/2023 11:32 AM EDT [...] Patients (1 - 1-dose 75+ series) 2020 COVID-19 Vaccine ( - 2023-2 5 season) 2024 Influenza Vaccine 06/15/2025 Hepatitis B Vaccines Aged Out No long er eligible based on patient's age to complete this topic [place] [address] MEDICARE [facility] MEDICARE
--- OUTSIDE RECORDS SUMMARY | 2025-04-03 14:21 | XMS_ITS | Clinical Summary ---
Author Organization [facility] Address [address] [facility] [address] [place] [address] Phone Care Team Providers Care Plateman Name Role Phone Cristo Spring MD Primary Care Provider Allergies No known active allergies Medications Aspirin [...] Office Visit [facility] [address] [phone] Alonso Vance MD Stage 3b chronic kidney disease (HCC) (Primary Dx); Diabetes mellitus, not otherwise specified (HCC); Cyst of kidney; Coronary arteriosclerosis, not otherwise specified 01/11/2025 Orders Only [facility] [address] [address] Alonso Vance MD from Last 3 Months [...] Visit [facility] [address] [facility] [address] [place] [address] Alonso Vance MD [address] [facility] [address] [place] [address] Health Maintenance Due Date Last Done Comments Pneumococcal Vaccine: 50+ Ye ars (2 of 2 - PCV) [...] None seen 0 - 5 /hpf [facility] RBC, Urine 0-2 0 - 2 /hpf [facility] Squamous Epithelial, Urine None seen 0 - 10 /hpf [facility] Casts None seen None seen /lpf [facility] Bacteria, Urine None seen None seen/Few [facility] 01/11/2025 10:5 0 AM EST 01/11/2025 Alonso Vance MD LAB MICROBIOLOGY - GENERAL OR DERABLES Final Result Performing Organization Address City/[facility]/ZIP Co de Phone Number [facility] [address] [place] [address] * Protein, Total, Random Urine w/Creatinine (Protein/Creat Ratio) (01/11/2025 10:50 AM EST) Pathologist [facility] Creatinine, Ur 180.0 Not Estab. mg/dL [facility] Protein, Ur 26.5 Not Estab. mg/dL [facility] Urine Protein/Creatin ine Ratio 147 0 - 200 mg/g creat [facility] 01/11/2025 10:5 0 AM EST 01/11/2025 us Alonso Vance MD LAB URINE ORDERABLES Final Re sult Performing Organization Address City/[facility]/ZIP Co de Phone Number [facility] [address] [place] [address] * Vitamin D 25 Hydroxy (01/11/2025 10:50 AM EST) Vitamin D, 25-OH, Total 30.8 30.0 - 100.0 ng/mL [facility] Comment: Vitamin D deficiency has been defined by the [place] of Medicine and an Endocrine Society practice guideline as a level of serum 25-OH vitamin D less than 20 ng/mL (1,2). The Endocrine Society went on to further define vitamin D insufficiency as a level between 21 and 29 ng/mL (2). 1. IOM ([place] of Medicine). 2010. Dietary reference ?? intakes for calcium and D. [place]: The ?? National [employer]. 2. Stef MF, Valdo CAZARES, Michelle UNDERWOOD, et al. ?? Evaluation, treatment, and prevention of vitamin D ?? deficiency: an Endocrine Society clinical practice ?? guideline. JCEM. 2010; 96(7):1911-30. 01/11/2025 10:5 0 AM EST 01/11/2025 us Alonso Vance MD LAB BLOOD ORDERABLES Final Re sult [facility] [address] [place] [address] * (ABNORMAL) Urinalysis with microscopic (01/11/2025 10:50 AM EST) Pathologist [facility] Specific [place], Urine 1.021 1.005 - 1.030 [facility] [phone] pH Urine 6.5 5.0 - 7.5 [facility] [phone] Color, Urine Yellow Yellow [facility] Appearance Urine Clear Clear [facility] [phone] WBC Esterase Urine Negative Negative [facility] [phone] Protein, Ur 1+(A) Negative/Tra ce [facility] Glucose, Ur Negative Negative [facility] [phone] Ketones, Urine Negative Negative [facility] [phone] Blood Urine Negative Negative [facility] Bilirubin Urine Negative Negative [facility] Urobilinogen Urine 1.0 0.2 - 1.0 mg/dL [facility] Nitrite, Urine Negative Negative [facility] Microscopic Examination See below: [facility] Comment:Microscopic was donnie cated and was performed. 01/11/2025 10:5 0 AM EST 01/11/2025 us Alonso Vance MD LAB URINE ORDERABLES Final Re sult [facility] [address] [place] [address] * CBC and Differential (01/11/2025 10:50 AM EST) WBC 9.7 3.4 - 10.8 x10E3/uL [facility] RBC 5.08 4.14 - 5.80 x10E6/uL [facility] Hemoglobin 14.0 13.0 - 17.7 g/dL [facility] Hematocrit 42.5 37.5 - 51.0 % [facility] MCV 84 79 - 97 fL [facility] MCH 27.6 26.6 - 33.0 pg [facility] MCHC 32.9 31.5 - 35.7 g/dL [facility] RDW 13.6 11.6 - 15.4 % [facility] Platelets 210 150 - 450 x10E3/uL [facility] Neutrophils Relative 65 Not Estab. % [facility] Lymphocytes Relative 24 Not Estab. % [facility] Monocytes 8 Not Estab. % [facility] Eosinophils Relative 2 Not Estab. % [facility] Basophils Relative 0 Not Estab. % [facility] Neutrophils Absolute 6.4 1.4 - 7.0 x10E3/uL [facility] Lymphocytes Absolute 2.3 0.7 - 3.1 x10E3/uL [facility] Monocytes Absolute 0.8 0.1 - 0.9 x10E3/uL [facility] Eosinophils Absolute 0.2 0.0 - 0.4 x10E3/uL [facility] Basophils Absolute 0.0 0.0 - 0.2 x10E3/uL [facility] Immature Granulocytes 1 Not Estab. % [facility] Immature Grans (Absolute) 0.1 0.0 - 0.1 x10E3/uL [facility] 01/11/2025 10:5 0 AM EST 01/11/2025 Alonso Vance MD LAB BLOOD ORDERABLES Final Re sult [facility] [address] [place] [phone] * Uric Acid (01/11/2025 10:50 AM EST) Uric Acid 7.9 3.8 - 8.4 mg/dL [facility] Comment:Therapeutic target f or gout patients: <6.0 01/11/2025 10:5 0 AM EST 01/11/2025 Alonso Vance MD LAB BLOOD ORDERABLES Final Re sult [facility] [address] [place] [address] * Phosphorus (01/11/2025 10:50 AM EST) Phosphorus 2.8 2.8 - 4.1 mg/dL [facility] 01/11/2025 10:5 0 AM EST 01/11/2025 Alonso Vance MD LAB BLOOD ORDERABLES Final Re sult Performing Organization Address [facility] Co de Phone Number [facility] [address] [place] [address] * (ABNORMAL) PTH, Intact (01/11/2025 10:50 AM EST) PTH 69(H) 15 - 65 pg/mL [facility] 01/11/2025 10:5 0 AM EST 01/11/2025 Alonso Vance MD LAB BLOOD ORDERABLES Final Re sult Performing Organization Address [facility] Co de Phone Number [facility] [address] [place] [address] * Magnesium (01/11/2025 10:50 AM EST) Magnesium 1.8 1.6 - 2.3 mg/dL [facility] 01/11/2025 10:5 0 AM EST 01/11/2025 Alonso Vance MD LAB BLOOD ORDERABLES Final Re sult Performing Organization Address City/[facility]/ZIP Co de Phone Number [facility] [address] [place] [address] * (ABNORMAL) Comprehensive Metabolic Panel (01/11/2025 10:50 AM EST) Pathologist [facility] Glucose 130(H) 70 - 99 mg/dL [facility] BUN 24 8 - 27 mg/dL [facility] Creatinine 1.30(H) 0.76 - 1.27 mg/dL [facility] eGFR CKD-EPI CR 2020 56(L) >59 mL/min/1.7 3 [facility] BUN/Creatinine Ratio 18 10 - 24 [facility] Sodium 146(H) 134 - 144 mmol/L [facility] Potassium 4.4 3.5 - 5.2 mmol/L [facility] Chloride 106 96 - 106 mmol/L [facility] Bicarbonate (CO2) 23 20 - 29 mmol/L [facility] Calcium 9.9 8.6 - 10.2 mg/dL [facility] Total Protein 6.8 6.0 - 8.5 g/dL [facility] Albumin 4.2 3.8 - 4.8 g/dL [facility] Globulin 2.6 1.5 - 4.5 g/dL [facility] Total Bilirubin 0.5 0.0 - 1.2 mg/dL [facility] Alkaline Phosphatase 96 44 - 121 IU/L [facility] AST (SGOT) 21 0 - 40 IU/L [facility] ALT (SGPT) 21 0 - 44 IU/L [facility] 01/11/2025 10:5 0 AM EST 01/11/2025 us Alonso Vance MD LAB BLOOD ORDERABLES Final Re sult [facility] [address] [place] [address] from Last 3 Months Insurance [employer] [facility] Adv PPO ([id number]) [facility] Adv PPO ([id number]) Care Teams Plateman Relationship Specialty Start Date End Date Cristo Spring MD [employer] [address] [place] [address] [address] [place] [address] PCP - General Internal Medicine 09/14/22
--- OUTSIDE RECORDS SUMMARY | 2025-04-03 14:21 | XMS_ITS | Encounter Summary ---
Author Organization [facility] Address [address] [place] [address] Care Team Providers Care Civil Engineering Draftsperson Name Role Phone Unavailable Primary Care Provider Unavailabl e Encounter Details Date Type Department Care Team (Late st Contact Info) Description 11/29/2023 Scanned Document [facility] [address] [facility] [address] [place] [phone] Marisela Bautista APRN [address] [place] [id number] Social History Tobacco Use Types Packs/Day Years [...]
--- OUTSIDE RECORDS SUMMARY | 2025-04-03 14:21 | XMS_ITS | Clinical Summary ---
Author Organization [facility] [employer] Address [address] [place] [address] Phone Care Team Providers Care Clinical Documentation Spec Name Role Phone Cristo Spring MD Primary Care Provider [phone] Allergies No known active allergies Medications hydroCHLOROthiazi [...] 81 mg by mouth daily. 4 Active colchicine (MITIGARE) 0.6 mg capsule capsule Take by mouth as needed. Active esomeprazole (NexIUM) 40 mg packet Take 40 mg by mouth every morning (before breakfast). Active metoprolol succinate (TOPROL-XL) 25 mg 24 hr tablet Take 1 Tablet by mouth daily. Active zolpidem (AMBIEN) 10 mg tablet Take 1 Tablet by mouth at bedtime. 0 Active fish,bora,flax oils-om3,6,9no1 ([place] 3-6-9) 1,200 mg capsule Take 1,200 mg by mouth daily. 2 Active amLODIPine (NORVASC) 5 mg tabletIndications :Essential (primary) hypertension TAKE 1 TABLET BY MOUTH EVERY DAY 90 tablet 3 5 Active atorvastatin (LIPITOR) 80 mg tablet TAKE 1 TABLET BY MOUTH EVERY DAY 90 tablet 1 5 Active albuterol HFA (PROAIR HFA ; PROVENTIL HFA ; VENTOLIN HFA) 90 mcg/actuation inhaler Inhale 2 puffs by mouth every 6 (six) hours if needed for wheezing. 6.7 g 11 5 03/12/20 26 Active Active Problems Problem Noted Date Diagnosed [...] Encounters Date Type Department Care Team Description 03/12/2025 3:00 PM EDT Consult Pulmonolgy - [place] [address] [place] [address] Haylee Camarillo MD Cough, unspecified type (Primary Dx) 01/12/2025 Telephone [facility] [address] [place] [address] Ari Patricio MD Medical Records from Last 3 Months Social History Tobacco [...] Sign Reading Time Taken Comments Blood Pressure 136/78 03/12/2025 3:15 PM EDT Pulse 93 03/12/2025 3:15 PM EDT Temperature 36.6 ??C (97.9 ??F) 03/12/2025 3:15 PM ED T Respiratory Rate 20 03/12/2025 3:15 PM EDT Oxygen Saturation 97% 03/12/2025 3:15 PM EDT Inhaled Oxygen Concentration - - Weight 105 kg (232 lb) 03/12/2025 3:15 PM EDT Height 170.2 cm (5' 7 ) 03/12/2025 3:15 PM EDT Body Mass Index 36.34 03/12/2025 3:15 PM EDT Plan of Treatment Upcoming Encounters Date Type Department Care Team (Late st Contact Info) Description 09/12/2025 1:30 PM EDT Ancillary Procedure Pulmonolgy [facility] [address] [place] [phone] 09/12/2025 2:45 PM EDT Office Visit [facility] - [place] [address] [facility] [address] [place] [address] Haylee Camarillo MD [address] [facility] [address] [place] [address] Health Maintenance Due Date Last Done Comments Diabetes: Annual Foot Exam 1955 Diabetes: Annual Retina Eye Exam 1955 Pneumococcal Vaccine: 50+ Years (2 of 2 - PCV) 12/22/2014 12/22/2013 RSV Immunization Adult Patients (1 - 1-dose 75+ series) 2020 Cholesterol Screening (Lipid Panel) 10/18/2022 Depression Screening 10/18/2022 Falls Risk Assessment 10/18/2022 Hepatitis C Screening 10/18/2022 Medicare Annual Wellness Visit 10/18/2022 Social Influencers of Health Screening 10/18/2022 COVID-19 Vaccine ( season) 2024 08/18/2023, 09/01/2022, 02/26/2022, Additional history exists Diabetes: Annual Urine Albumin-Creatinine Ratio (uACR) 11/24/2024 Diabetes: Blood Sugar Control Test (HGBA1C) 11/24/2024 Diabetes: Annual GFR (Glomerular Filtration Rate) 01/11/2026 01/11/2025, 01/11/2025 Hypertension/CHF/CAD Annual BMP Blood Test 01/11/2026 01/11/2025, 01/11/2025 DTaP,Tdap,and Td Vaccines (2 - Td or [...] patient's age to complete this topic Insurance [employer] MEDICARE ADVANTAGE Care Teams Clinical Documentation Spec Relationship Specialty Start Date End Date Cristo Spring MD [address] [place] [address] PCP - General Rn Travel 03/08/18
== END 2025-04-03 13:58 | disposition home or self-care (01) ==
LOC: HO.HNS 13:14
PROVIDERS: PCP Internal Medicine; Visit Provider Physician Assistant
DX: M48.062 Spinal stenosis, lumbar region with neurogenic claudication (principal)
CPT/HCPCS: 99024

== ENCOUNTER → 2025-04-03 13:14 | Outpatient (BNVA) | payer MEDICARE, SELFPAY | PROVIDERS: PCP Internal Medicine; Visit Provider Physician Assistant | DX: M48.062 Spinal stenosis, lumbar region with neurogenic claudication (principal) | CPT/HCPCS: 99212 ==